=== PATIENT | female | born 1995 | race Two or more races ===

== ENCOUNTER 2021-09-15 16:02 | Emergency (ER) | payer OTHER, SELFPAY ==
--- NOTE | 2021-09-15 16:22 | ED_ITS ---
HPI - Skin/Abscess/Foreign Bdy General Chief complaint: Wound/Laceration Stated complaint: works at [employer] had a needle stick Time Seen by Provider: 09/15/21 16:11 Source: patient Mode of arrival: ambulatory Limitations: no limitations History of Present Illness HPI narrative: 26-year-old female presenting to the ED with complaints of a accidental needlestick injury that occurred prior to arrival while she was at work at [employer] after giving influenza vaccine. She reports that she gave the flu shot to the patient and when she went to dispose of the flu shot she accidentally stuck herself with the needle to the left hand index finger. She reports she wash the site right away. She denies any thoughts of foreign bodies. She is up-to-date on tetanus. Her leave manager does have the source of the patient. The source patient did agree to get the blood drawn. She reports she does not believe the patient has any infectious diseases although she will want the post exposure prophylaxis kit. She denies any other symptoms complaints or concerns at this time. 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) Tetanus up to date: yes Location: L hand (index finger ) Severity: mild Relieving factors: none Exacerbating factors: none Context: other (see above ) Associated symptoms: denies other symptoms Treatments prior to arrival: other (Cleansed the area ) Related Data Allergies Allergy/AdvReac Type Severity Reaction Status Date / Time No Known Allergies Allergy Verified 09/15/21 16:14 Review of Systems Review of Systems: Constitutional : + NeedleStick injury, No Weight loss, No Fever, No Chills, No Night Sweats, No Fatigue, No Malaise ENT/Mouth : No Hearing loss, No Ear Pain, No Nasal Congestion, No Sinus Pain, No Hoarseness, No sore throat, No Rhinorrhea, No Swallowing Difficulty Eyes: No Eye Pain, No Swelling, No Redness, No Foreign Body, No Discharge, No Vision Changes Cardiovascular : No Chest Pain, No SOB, No Dyspnea on Exertion, No Orthopnea, No Edema, No Palpitations Respiratory : No Cough, No Sputum, No Wheezing, No Smoke Exposure, No Dyspnea Gastrointestinal : No Nausea, No Vomiting, No Diarrhea, No Constipation, No abdominal Pain, No Hematochezia, No Melena Genitourinary : no irregular bleeding, No Dysuria, No Urinary Frequency, No Hematuria, No Urinary Incontinence, No Urgency, No Flank Pain, No Urinary Flow Changes, No Hesitancy Musculoskeletal : No joint pain, No Myalgias, No Joint Swelling Skin : No Skin Lesions, No rash Neuro : No Weakness, No Numbness, No Paresthesias, No Loss of Consciousness, No Dizziness, No Headache Psych : No Anxiety/Panic, No Depression, No SI/HI/AH/VH, No Social Issues, Heme/Lymph: No Bruising, No Bleeding,No Lymphadenopathy Endocrine : No Polyuria, No Polydipsia, No Temperature Intolerance Yes all other systems are reviewed and are negative [facility] Past Medical History Attestation statement: The following information was validated with the patient. Medical History (Updated 09/15/21 @ 16:36 by AUSTIN Hanna) Asthma Surgical History (Updated 09/15/21 @ 16:33 by Juliette Stroud LPN) Hx of hernia repair Social History Social History Advance Directives: No Advance Directives Information Provided: No Patient : No Physical Exam Vital Signs: Vital Signs: Last Vital Signs Temp 97.7 F 09/15/21 16:29 Pulse 90 09/15/21 16:29 Resp 16 09/15/21 16:29 BP 117/76 09/15/21 16:29 Pulse Ox 98 09/15/21 16:29 BMI result Body Mass Index 31.0 vital signs have been reviewed as normal and appeared to be correct. Blood pressure normal Heart rate normal. Respiration rate normal. Temperature normal. Oxygen saturation normal. Appearance: Alert. Oriented X3. No acute distress. Head: Normal external exam. Normocephalic. Atraumatic. Eyes: PERRLA. EOMI. Conjunctiva and sclera normal. Eyelids normal. ENT: Pharynx normal. Uvula midline. Moist mucous membranes. Neck: Normal inspection. Neck supple. FROM. CVS: Normal heart rate and rhythm. Respiratory: No respiratory distress. Painless inspiration. Skin: Skin warm and dry. Normal skin color. Normal skin turgor. No rashes/lesions/lacerations noted. Extremities: left hand index finger appears mildly erythemous no signs of FB's or drainage or infection at this time and there is no pain. Otherwise all other extremities exhibit normal range of motion nontender and atraumatic. Neuro: Oriented X 3. No motor deficit. No sensory deficit. Reflexes normal. Normal steady gait. No focal neuro deficits noted. Vascular: + radial pulses/+ 2 distal pedal pulses/+2 dorsalis pedis b/l. Normal cap refill. No cyanosis noted to upper extremity nails and lower extremity toes nails. Course Course Course Narrative: 16:15 - 26-year-old female presenting to the ED with complaints of a accidental needlestick injury that occurred prior to arrival while she was at work at [employer] after giving influenza vaccine. She reports that she gave the flu shot to the patient and when she went to dispose of the flu shot she accidentally stuck herself with the needle to the left hand index finger. She reports she wash the site right away. She denies any thoughts of foreign bodies. She is up-to-date on tetanus. Her leave manager does have the source of the patient. The source patient did agree to get the blood drawn. She reports she does not believe the patient has any infectious diseases although she will want the post exposure prophylaxis kit. She denies any other symptoms complaints or concerns at this time. Plan: Post exposure labs then send home with post exposure prophylaxis kit and instructions follow-up [facility]. Patient understands agrees with this plan. MDM - Skin/Abscess/Foreign Bdy Medical Records Attestation: I reviewed the patient's medical records. Lab Data Attestation: I reviewed the patient's lab results. Result diagrams: 09/15/21 17:00 09/15/21 17:00 Labs: Lab Results 09/15/21 09/15/21 Range/Units 17:00 17:00 WBC 9.2 (4.8-10.8) X10*3/uL RBC 4.21 (4.20-5.50) X10*6/uL Hgb 12.5 (12.0-16.0) g/dl Hct 36.6 L (37.0-47.0) % MCV 86.9 (80.0-98.0) fL MCH 29.7 (27.0-33.0) pg MCHC 34.2 (31.0-35.0) g/dl RDW 12.9 (11.0-16.0) % Plt Count 250 (160-400) X10*3/uL MPV 10.0 (9.4-12.3) fL Immature Gran % (Auto) 0.4 (0.0-0.4) % Neut % (Auto) 66.1 (45-73) % Lymph % (Auto) 24.3 (20-40) % [place] % (Auto) 5.9 (2-11) % Eos % (Auto) 3.1 (0-4) % Baso % (Auto) 0.2 (0-2) % Lymph # (Auto) 2.2 (1.2-4.9) X10*3/uL [place] # (Auto) 0.5 (0.1-1.2) X10*3/uL Eos # (Auto) 0.3 (0.0-0.4) X10*3/uL Baso # (Auto) 0.0 (0.0-0.2) X10*3/uL Abs Immat Gran (auto) 0.04 H (0.00-0.03) X10*3/uL Absolute Neuts (auto) 6.1 (2.0-8.3) x10*3/uL Absolute Nucleated RBC 0.000 (0.0-0.012) X10*3/uL Nucleated RBC % (auto) 0.0 (0.0-0.2) /100WBC Sodium 138 (135-145) mmol/L Potassium 4.0 (3.3-5.1) mmol/L Chloride 107 (96-108) mmol/L Carbon Dioxide 23 (22-29) mmol/L Anion Gap 12 (12-20) BUN 16 (9-16) mg/dL Creatinine 0.72 (0.5-1.4) mg/dL Estim Creat Clear Calc 122.7 Estimated GFR > 60 Random Glucose 103 (60-115) mg/dL Calcium 8.5 (8.4-10.2) mg/dL Magnesium 1.9 (1.6-2.6) mg/dL Total Bilirubin 0.5 (0.0-1.0) mg/dL AST 16 (5-31) U/L ALT 13 (0-31) U/L Alkaline Phosphatase 75 (39-117) U/L Total Protein 6.6 (6.5-8.0) g/dL Albumin 3.5 (3.5-5.0) g/dL Beta HCG, Quant < 2 mIU/mL Discharge Plan Discharge Clinical Impression: Accidental hypodermic needlestick injury, Work related injury Patient Disposition: Home, Self-Care Instructions: Needle Stick Injuries (ED), Return to Work Instructions (ED) Additional Instructions: You have pending labs results if any are abnormal or positive you will be cont acts. You need to follow up with [facility] within 72 hours And if you decide to take the post exposure prophylaxis kit you will need to take this within 72 hours or sooner. Return if any new or worsening symptoms. Follow up with your primary care provider as well. Referrals: [facility] [Provider Group] - 1 day Concepcion Mendoza MD [Primary Care Provider] - 2 days Stand Alone Forms: Work/School Release Print Language: Angolan
[2021-09-15 16:29] VITALS: BP 117/76; PULSE 90; RESP 16; TEMP 36.5; O2SAT 98; BMI 31.0
[2021-09-15 17:05] LABS: MANUAL DIFF FLAG NO
[2021-09-15] MEDS: Post Exposure Medication Kit 1 KIT PO (17:07)
[2021-09-15 17:12] LABS: Basophils Percent Auto 0.2 % (0-2); Eosinophils Absolute Auto 0.3 X10*3/uL (0.0-0.4); Eosinophils Percent Auto 3.1 % (0-4); Hematocrit 36.6 % (37.0-47.0); Hemoglobin 12.5 g/dl (12.0-16.0); Imm Gran Abs Auto 0.04 X10*3/uL (0.00-0.03); Imm Gran Pct Auto 0.4 % (0.0-0.4); Lymphocytes Absolute Auto 2.2 X10*3/uL (1.2-4.9); Lymphocytes Percent Auto 24.3 % (20-40); Mean Corpuscular HGB Conc 34.2 g/dl (31.0-35.0); Mean Corpuscular Hemoglobin 29.7 pg (27.0-33.0); Mean Corpuscular Volume 86.9 fL (80.0-98.0); Monocytes Absolute Auto 0.5 X10*3/uL (0.1-1.2); Monocytes Percent Auto 5.9 % (2-11); Neutrophils Absolute Auto 6.1 x10*3/uL (2.0-8.3); Neutrophils Percent Auto 66.1 % (45-73); Platelet Count 250 X10*3/uL (160-400); Red Blood Count 4.21 X10*6/uL (4.20-5.50); Red Cell Distribution Width 12.9 % (11.0-16.0); White Blood Count 9.2 X10*3/uL (4.8-10.8)
[2021-09-15 17:30] LABS: Alanine Aminotransferase 13 U/L (0-31); Albumin Level 3.5 g/dL (3.5-5.0); Alkaline Phosphatase 75 U/L (39-117); Anion Gap 12 (12-20); Aspartate Amino Transferase 16 U/L (5-31); Bilirubin Total 0.5 mg/dL (0.0-1.0); Blood Urea Nitrogen 16 mg/dL (9-16); Calcium 8.5 mg/dL (8.4-10.2); Carbon Dioxide 23 mmol/L (22-29); Chloride 107 mmol/L (96-108); Creatinine Clr Calc Pharmacy 122.7; Estimated Glomerular Filt Rate > 60; Glucose Random 103 mg/dL (60-115); Magnesium 1.9 mg/dL (1.6-2.6); Sodium 138 mmol/L (135-145); Total Protein 6.6 g/dL (6.5-8.0)
[2021-09-15 17:38] LABS: HCG Quantitative < 2 mIU/mL
[2021-09-16 08:24] LABS: HIV AB/AG Nonreactive (Nonreactive); HIV Num 1 0.07 S/CO (0.00-0.99); Hepatitis B Surface Antigen Negative (Negative)
[2021-09-16 10:07] LABS: HBS Num1 100.55 mIU/mL (0-7.99); Hepatitis B Core Antibody Nonreactive (Nonreactive); ~HepC Num1 0.33 S/CO (0.00-0.79); ~Hepatitis B Surface Antibody REACTIVE (Nonreactive); ~Hepatitis C Antibody Nonreactive (Nonreactive)
== END 2021-09-15 17:49 | disposition home or self-care (01) ==
PROVIDERS: Physician Assistant Medical; Emergency Provider Emergency Medicine Emergency Medical Services; PCP Internal Medicine
DX: Z04.2 Encounter for examination and observation following work accident (principal); Z77.21 Contact with and (suspected) exposure to potentially hazardous body fluids
CPT/HCPCS: 36415; 80053; 83735; 84702; 85025; 86704; 86706; 86803; 87340; 87389; 99283

== ENCOUNTER → 2021-09-23 08:47 | Outpatient (BNVA) | payer OTHER, SELFPAY | PROVIDERS: PCP Internal Medicine; Visit Provider Physician Assistant Medical | DX: Z77.21 Contact with and (suspected) exposure to potentially hazardous body fluids (principal) | CPT/HCPCS: 99203 ==

== ENCOUNTER 2023-03-07 08:01 | Outpatient (AMB) | payer BC, SELFPAY ==
--- NOTE | 2023-03-07 08:23 | MHC.OFFWIV ---
Intake Vital Signs 03/07/23 08:24 Height 5 ft 4 in Weight 86.183 kg BMI 32.6 BP 110/64 Blood Pressure Location Rt brachial Position Sitting Pulse 94 Pulse Source Pulse Oximeter Temp 98.0 F Temp Source Temporal Artery Scan Pulse Oximetry (%) 99 Oxygen Delivery Method Room Air Intake Visit Reasons: EP RT ?Ear Infection Intake Note: pt is here for c/o ear infection Allergies penicillin V Allergy (Mild, Verified 03/07/23 08:24) Rash Do you need a note to return to daycare/school/sports/work: No HPI HPI Comments History of Present Illness Details 0833 20-year-old female history of asthma presents complaints of right-sided ear pain for the past few days worsening. Patient reports recurrent ear infections, worse when she showers frequently and washes her hair.. Patient denies fevers, chills, otorrhea, tinnitus, dizziness, headache, nausea, vomiting, abdominal pain. Physical exam significant for erythematous, bulging tympanic membrane on the right, within edematous and erythematous ear canal. There is pain with manipulation of right external ear. No mastoid tenderness bilaterally. Normal left here in ear canal. Concerns for otitis media with otitis externa. Unlikely mastoiditis, malignant otitis. No signs of abscess. Plan doxycycline since patient has an amoxicillin allergy, Ciprodex drops. Educated patient on diagnosis and treatment plan, answered all question, patient verbalizes understanding. At this time patient will be discharged home, advised to return with new or worsening symptoms. Educated on worrisome signs and symptoms and when to return. At this time I feel comfortable discharge home. [facility] Medical History Asthma Surgical History Hx of hernia repair Review of Systems Const Details: Constitutional : No Weight loss, No Fever, No Chills, No Fatigue, No Malaise ENT/Mouth : No sore throat, No Rhinorrhea, + ear pain Eyes: No Eye Pain, No Swelling, No Redness Cardiovascular : No Chest Pain, No SOB, No Dyspnea on Exertion, No Orthopnea, No Edema, No Palpitations Respiratory : No Cough, No Sputum, No Wheezing Gastrointestinal : No Nausea, No Vomiting, No Diarrhea, No Constipation, No abdominal Pain, No Hematochezia, No Melena Genitourinary : No Dysuria, No Urinary Frequency, No Hematuria, Musculoskeletal : No joint pain, No Myalgias, No Joint Swelling Skin : No Skin Lesions, No rash Neuro : No Weakness, No Numbness, No Dizziness, No Headache Psych : No Anxiety/Panic, No Depression All other systems reviewed and are negative All systems reviewed & are unremarkable except as noted in HPI and below Physical Exam Vital Signs: Last Vital Signs Temp 98.0 F 03/07/23 08:24 Pulse 94 03/07/23 08:24 BP 110/64 03/07/23 08:24 Pulse Ox 99 03/07/23 08:24 Oxygen Delivery Method Room Air 03/07/23 08:24 BMI result Body Mass Index 32.6 vss Appearance: Alert.? Oriented X3.? No acute distress.? Head: Normocephalic, atraumatic, no step-offs or deformities Eyes: Pupils equal, round and reactive to light.? ENT: Pharynx normal.? +erythematous, bulging tympanic membrane on the right, within edematous and erythematous ear canal. There is pain with manipulation of right external ear. No mastoid tenderness bilaterally. Normal left here in ear canal. Neck: Normal inspection.? Neck supple.? CVS: Normal heart rate and rhythm.? Pulses normal.? Respiratory: No respiratory distress.? Breath sounds normal.? Abdomen: Soft and nontender.? Skin: Skin warm and dry.? Normal skin color.? Normal skin turgor.? Extremities: No lower extremity edema.? No calf ttp. 5/5 strength to bilateral upper and lower extremities Neuro: Oriented X 3.? No motor deficit.? No sensory deficit. CN 2-12 intact Assessment & Plan Assessment & Plan (1) Otitis media: Code(s): H66.90 - Otitis media, unspecified, unspecified ear (2) Otitis externa: Code(s): H60.90 - Unspecified otitis externa, unspecified ear Plan Take your medications as prescribed. If you were prescribed antibiotics today, it is important that you take your medication to their entirety, do not skip any doses, do not finish them early. Follow-up with your primary care provider this week. Return to the emergency department with new or worsening symptoms. Such as fevers, chills, chest pain, shortness of breath, nausea, vomiting, dizziness, headache, vision changes, lethargy In case of emergency call 911 Medications: New doxycycline hyclate 100 mg PO BID 14 caps 0RF 7 days ciprofloxacin-dexamethasone 0.3-0.1 % (Ciprodex) 4 drps otic (ears) BID 7.5 mL 0RF 7 days Coding Level of Care Code Est Pt Level 3 (46577) Diagnoses Otitis media H66.90 Otitis externa H60.90
[2023-03-07 08:24] VITALS: BP 110/64; PULSE 94; TEMP 36.7; O2SAT 99; BMI 32.6
== END 2023-03-07 08:41 | disposition home or self-care (01) ==
PROVIDERS: PCP Internal Medicine; Visit Provider Physician Assistant
DX: H66.91 Otitis media, unspecified, right ear (principal); H60.91 Unspecified otitis externa, right ear
CPT/HCPCS: 99213

== ENCOUNTER 2023-06-10 07:14 | Outpatient (REF) | payer OTHER, SELFPAY ==
[2023-06-10 08:28] LABS: Thyroid Stimulating Hormone 0.94 uIU/mL (0.32-4.0)
[2023-06-11 06:44] LABS: DHEA Sulfate 95 mcg/dL (14-349); Follicle Stimulating Hormone 6.6 mIU/mL; Prolactin 11.2 ng/mL
[2023-06-14 23:29] LABS: Testosterone, Free 1.3 pg/mL (0.1-6.4); Testosterone, Total 13 ng/dL (2-45)
[2023-06-17 22:19] LABS: Estradiol Free 0.67 pg/mL; Estradiol, Ultrasensitive 41 pg/mL
== END 2023-06-10 07:15 | disposition home or self-care (01) ==
LOC: HO.LAB 07:14
PROVIDERS: PCP Internal Medicine; Visit Provider Obstetrics & Gynecology
DX: N97.9 Female infertility, unspecified (principal)
CPT/HCPCS: 36415; 82627; 82670; 82681; 83001; 83002; 84146; 84402; 84403; 84443

== ENCOUNTER 2023-06-17 15:23 | Outpatient (REF) | payer OTHER, SELFPAY ==
--- NOTE | ~2023-06-17 | US_ITS ---
EXAMINATION: US PELVIS CLINICAL INFORMATION: Infertility, oligomenorrhea, question polycystic ovarian syndrome. Last menstrual period 1 week ago. COMPARISON: None available. TECHNIQUE: Ultrasound of the pelvis is performed using both transabdominal and transvaginal transducers along with Doppler. Transvaginal imaging is performed due to inadequate visualization transabdominally. FINDINGS: The uterus is heterogeneous and measures 7.9 x 3.7 x 5.1 cm with volume 77.86 mL. Left anterior low 1.9 x 1.3 x 2.0 cm hypoechoic mass is characteristic of a fibroid. Endometrial thickness is 0.7 cm. There is no significant free fluid. Right ovary measures 3.4 x 1.5 x 1.8 cm, volume 4.6 mL. Left ovary measures 2.9 x 1.7 x 1.4 cm, volume 3.5 mL. Limited visualization of the bilateral ovaries due to bowel gas. Left ovarian 1.3 cm cyst is likely physiologic. US/US pelvic and transvaginal IMPRESSION: 1. Fibroid uterus. 2. Endometrial thickness is 0.7 cm. 3. No significant free fluid. 4. Right ovarian volume 4.6 mL and left ovarian volume 3.5 mL. Left ovarian 1.3 cm cyst is likely physiologic. Limited visualization of the bilateral ovaries due to bowel gas.
== END 2023-06-17 15:24 | disposition home or self-care (01) ==
LOC: HO.HMGCX 15:23
PROVIDERS: PCP Internal Medicine; Visit Provider Internal Medicine
DX: N97.9 Female infertility, unspecified (principal)
CPT/HCPCS: 76830; 76856

== ENCOUNTER 2023-08-12 20:00 | Outpatient (REF) | payer OTHER, SELFPAY ==
[2023-08-13 13:31] LABS: H Pylori Breath Test Negative (Negative)
== END 2023-08-12 20:01 | disposition home or self-care (01) ==
LOC: HO.LNP 20:00
PROVIDERS: Visit Provider Internal Medicine Gastroenterology
DX: K29.70 Gastritis, unspecified, without bleeding (principal)
CPT/HCPCS: 83013

== ENCOUNTER 2023-09-15 10:14 | Day surgery (SDC) | payer OTHER, SELFPAY ==
--- NOTE | 2023-09-14 08:52 | HO.ANESPROP2 ---
Documented by User: Rosie Arias NP 09/14/23 08:53 HPI - Anesthesia Eval Consult details Narrative: 28yo F for Upper Endoscopy PMF Active Problems Active Problems: All Active Problems (Updated 10/16/21 @ 11:04 by Sha Nesbitt MD) Upper respiratory tract infection (Acute) Past Medical History Medical History Migraine Depression Asthma Surgical History Surgical History Hx of hernia repair Social History Social History Patient Tobacco Use Status: Never used Tobacco Use of substances other than those prescribed or required for medical reasons: No Are you DNR?: No Advance Directives: No Advance Directives Information Provided: Yes Meds Allergies Allergy/AdvReac Type Severity Reaction Status Date / Time penicillin V Allergy Mild Rash Verified 09/15/23 10:26 Home Medications Medication Instructions Recorded Confirmed Last Taken Type bupropion HCl 150 mg tablet,12 hr 150 mg PO DAILY 10/16/21 09/15/23 Unknown History sustained-release (Wellbutrin SR) buspirone 5 mg tablet 5 mg PO TID 09/15/23 09/15/23 Unknown History sumatriptan succinate 25 mg tablet PO 09/15/23 Unknown History topiramate 25 mg tablet 25 mg PO DAILY 09/15/23 09/15/23 Unknown History Assessment and Plan Assessment Anesthesia Assessment: Chart Reviewed Documented by User: Latanya Cadena MD 09/15/23 10:41 PMFSH Past Medical History Medical History Migraine Depression Asthma Family History Family history of problems with anesthesia: No Surgical History Surgical History Hx of hernia repair History of Problems with Anesthesia: No Social History Social History Patient Tobacco Use Status: Never used Tobacco Use of substances other than those prescribed or required for medical reasons: No Are you DNR?: No Advance Directives: No Advance Directives Information Provided: Yes Meds Allergies Allergy/AdvReac Type Severity Reaction Status Date / Time penicillin V Allergy Mild Rash Verified 09/15/23 10:26 Home Medications Medication Instructions Recorded Confirmed Last Taken Type bupropion HCl 150 mg tablet,12 hr 150 mg PO DAILY 10/16/21 09/15/23 Unknown History sustained-release (Wellbutrin SR) buspirone 5 mg tablet 5 mg PO TID 09/15/23 09/15/23 Unknown History sumatriptan succinate 25 mg tablet PO 09/15/23 Unknown History topiramate 25 mg tablet 25 mg PO DAILY 09/15/23 09/15/23 Unknown History Exam Airway Mallampati Class: II TM Dist: >3cm Neck ROM: Full Heart: rrr Lungs: cta Assessment and Plan Assessment Anesthesia Assessment: Anesthesia Plan Discussed Final Anesthetic Review Family History of Problems with Anesthesia: No History of Problems with Anesthesia: No NPO: Yes ASA Class: II Final Preanesthetic Review: No Changes in Pt Med Stat, Meds/Allgs Chart Reviewed, Consent Obtained/Reviewed and Anes Risks/Benef Reviewed Patient Risk: Low Procedure Risk: Low Anesthetic Plan Anesthetic Plan: MAC: Disposition: Standard PACU
[2023-09-15 10:28] VITALS: BP 126/87; PULSE 92; RESP 15; TEMP 37; O2SAT 98; BMI 33.5
[2023-09-15 10:30] LABS: UPreg QC Valid YES; Urine Pregnancy NEGATIVE (NEGATIVE)
--- NOTE | 2023-09-15 10:40 | P.HPSUR_ITS ---
Pre-Procedural Eval Section A - 24 Hr Update-Section A only Date of Service: 09/15/23 Section B - Complete if H&P > 30 days Chief Complaint: Gastritis, unspecified, without bleeding Relevant Family History (Specify if Yes): No Relevant Social History: None Present Medications: see Short Stay Collaborative assessment Medical History: Significant History (Migraine Depression Asthma) History of Previous Operations: Relevant previous surgery/procedure and date(s) (Hx of hernia repair) Allergies: Allergies Allergy/AdvReac Type Severity Reaction Status Date / Time penicillin V Allergy Mild Rash Verified 09/15/23 10:26 Review of Systems Sugical H&P ROS: Negative: Constitution, Cardiovascular, Respiratory, Neurological, Psychiatric, Hem-Onc, Allergic/Immunologic, Gastrointestinal, Genitourinary, Musculoskeletal, Integumentary, Endocrine and Eyes/Ears/Nose /Throat Exam Surgical H&P Exam: Normal: HEENT, Normal: Heart, Normal: Lungs, Normal: Extremities, Normal: Abdomen, Normal: Skin and Normal: Neurological Plan Diagnosis/Plan: Unchanged I have reviewed the history and physical and performed a pertinent physical examination on my patient. No changes have occurred unless specified. EGD for assessment of epigastric pain Time Spent With Patient Time: Total time managing care of this patient today ____ minutes.
[2023-09-15] MEDS: Lactated Ringers 1,000 ML 100 ML IVCONT (10:47)
--- NOTE | 2023-09-15 12:07 | W.PM.OPN ---
Operative Note Operative Note Date of Service: 09/15/23 Narrative: Procedure Description: EGD Indication: epigastric pain Anesthesia: MAC FLEXIBLE TRANSORAL UPPER GASTROINTESTINAL ENDOSCOPY UPPER ENDOSCOPY Consent: Indications for the procedure and potential complications of bleeding, perforation, reaction to medications and missed diagnosis were discussed with the patient and informed consent was obtained. Instrument: Olympus GIF H 190 J mid size upper endoscope Monitoring: Vital signs and clinical assessment, continuous EKG monitoring, Pulse oximetry, Carbon Dioxide monitoring and blood pressure monitoring were done throughout the procedure. Procedure: The patient was placed in the left lateral decubitis position and pre-procedure medications were administered and a bite block was placed. The endoscope was inserted into the mouth and advanced under direct vision to the third part of duodenum. A careful inspection was made as the upper endoscope was withdrawn including a retroflexed examination of the proximal stomach; Findings and interventions are described below. Findings: Larynx:normal Esophagus: GE junction at 35 cm, diaphragm hiatus at 35 cm, bx taken from GEj and distal esophagus, mild esophagitis at GEJ Stomach: Mild patchy erythema . Biopsies were obtained. Grade 2 flap valve on retroflexed examination of the cardia. Duodenum: Mild bulbar erythema, bx taken Intervention: Biopsies as noted above, Impression/Findings: gastritis duodenitis esophagitis PLAN: Await bx, if pos for h pylori treat if ongoing sx then US abdomen GERD precautions
[2023-09-15 12:13] VITALS: BP 107/69; PULSE 82; RESP 18; TEMP 36.2; O2SAT 100
[2023-09-15 12:28] VITALS: BP 106/77; PULSE 83; RESP 18; TEMP 36.7; O2SAT 98
== END 2023-09-15 12:45 | disposition home or self-care (01) ==
PROVIDERS: Nurse Practitioner; PCP Internal Medicine; Visit Provider Internal Medicine Gastroenterology
PROC: 0DJ08ZZ Inspection of Upper Intestinal Tract, Via Natural or Artificial Opening Endoscopic (ICD-10-PCS; CPT 43235; principal; 2023-09-15 12:10)
DX: K29.70 Gastritis, unspecified, without bleeding (principal); K29.80 Duodenitis without bleeding; K20.90 Esophagitis, unspecified without bleeding; K21.9 Gastro-esophageal reflux disease without esophagitis; J02.9 Acute pharyngitis, unspecified; J45.909 Unspecified asthma, uncomplicated
CPT/HCPCS: 43239; 81025; 88305; 88312; 88313; 88342; J2704

== ENCOUNTER → 2023-09-15 10:14 | Outpatient (BNV) | payer OTHER, SELFPAY | PROVIDERS: PCP Internal Medicine; Visit Provider Internal Medicine Gastroenterology | DX: K29.90 Gastroduodenitis, unspecified, without bleeding (principal); K20.90 Esophagitis, unspecified without bleeding | CPT/HCPCS: 43239 ==

== ENCOUNTER 2023-09-22 07:35 | Outpatient (REF) | payer OTHER, SELFPAY ==
[2023-09-22 07:50] LABS: MANUAL DIFF FLAG NO
[2023-09-22 08:09] LABS: Basophils Percent Auto 0.3 % (0-2); Eosinophils Absolute Auto 0.2 X10*3/uL (0.0-0.4); Eosinophils Percent Auto 1.8 % (0-4); Hematocrit 39.1 % (37.0-47.0); Hemoglobin 12.9 g/dl (12.0-16.0); Imm Gran Abs Auto 0.06 X10*3/uL (0.00-0.03); Imm Gran Pct Auto 0.6 % (0.0-0.4); Lymphocytes Absolute Auto 2.5 X10*3/uL (1.2-4.9); Mean Corpuscular Hemoglobin 29.1 pg (27.0-33.0); Mean Corpuscular Volume 88.1 fL (80.0-98.0); Mean Platelet Volume 10.3 fL (9.4-12.3); Monocytes Absolute Auto 0.8 X10*3/uL (0.1-1.2); Monocytes Percent Auto 8.1 % (2-11); Neutrophils Absolute Auto 6.1 x10*3/uL (2.0-8.3); Neutrophils Percent Auto 63.2 % (45-73); Platelet Count 276 X10*3/uL (160-400); Red Blood Count 4.44 X10*6/uL (4.20-5.50); White Blood Count 9.6 X10*3/uL (4.8-10.8)
[2023-09-22 08:42] LABS: Alanine Aminotransferase 17 U/L (0-31); Albumin Level 4.1 g/dL (3.5-5.0); Alkaline Phosphatase 88 U/L (39-117); Anion Gap 10 (12-20); Aspartate Amino Transferase 20 U/L (5-31); Bilirubin Total 0.4 mg/dL (0.0-1.0); Blood Urea Nitrogen 14 mg/dL (9-16); Calcium 9.2 mg/dL (8.4-10.2); Carbon Dioxide 24 mmol/L (22-29); Chloride 110 mmol/L (96-108); Cholesterol 184 mg/dL (<200); Estimated Glomerular Filt Rate > 60; Glucose Random 92 mg/dL (60-115); HDL Cholesterol 54 mg/dL (>40); LDL Cholesterol Calculated 115 mg/dL (<100); Lipase 14 U/L (8-78); Sodium 140 mmol/L (135-145); Total Protein 7.4 g/dL (6.5-8.0); Triglycerides 77 mg/dL (<150)
[2023-09-22 08:50] LABS: Thyroid Stimulating Hormone 1.32 uIU/mL (0.32-4.0)
[2023-09-22 08:51] LABS: Erythrocyte Sedimentation Rate 17 MM/HR (0-20)
== END 2023-09-22 07:36 | disposition home or self-care (01) ==
LOC: HO.LAB 07:35
PROVIDERS: PCP Internal Medicine; Visit Provider Physician Assistant
DX: Z13.6 Encounter for screening for cardiovascular disorders (principal); R10.13 Epigastric pain
CPT/HCPCS: 36415; 80053; 80061; 83690; 84443; 85025; 85652

== ENCOUNTER 2023-10-04 08:04 | Outpatient (REF) | payer OTHER, SELFPAY ==
--- NOTE | ~2023-10-04 | US_ITS ---
EXAMINATION: US ABDOMEN COMPLETE CLINICAL INFORMATION: Epigastric pain. COMPARISON: None available. TECHNIQUE: Real-time imaging of the abdominal viscera. Technically difficult study secondary to bowel gas. FINDINGS: PANCREAS: Poorly visualized. ABDOMINAL AORTA: The proximal, mid, and distal segments are normal in caliber. INFERIOR VENA CAVA: Visualized portions are normal. LIVER: Hepatomegaly, 17.9 cm. Mildly increased hepatic parenchymal heterogeneity and echogenicity could be associated with hepatocellular disease/hepatic steatosis and substantially limits visualization. Correlation with liver function tests and clinical exam recommended to determine further management. GALLBLADDER: No gallstones. No gallbladder wall thickening. COMMON BILE DUCT: Normal in caliber measuring 0.4 cm in diameter. RIGHT KIDNEY: No hydronephrosis. No renal calculi. Limited visualization. The kidney measures 11.0 cm in maximum dimension. LEFT KIDNEY: No hydronephrosis. No renal calculi. Limited visualization. The kidney measures 10.3 cm in maximum dimension. SPLEEN: Normal. The spleen measures 10.5 cm in maximum dimension. FREE FLUID: None. US/US abdomen complete IMPRESSION: Hepatomegaly, 17.9 cm. Mildly increased hepatic parenchymal heterogeneity and echogenicity could be associated with hepatocellular disease/hepatic steatosis and substantially limits visualization. Correlation with liver function tests and clinical exam recommended to determine further management.
== END 2023-10-04 08:05 | disposition home or self-care (01) ==
LOC: HO.US 08:04
PROVIDERS: PCP Internal Medicine; Visit Provider Internal Medicine Gastroenterology
DX: R10.13 Epigastric pain (principal)
CPT/HCPCS: 76700

== ENCOUNTER 2023-10-21 14:22 | Outpatient (AMB) | payer OTHER, SELFPAY ==
--- NOTE | 2023-10-21 15:01 | AM.OFFWIN_ITS ---
Intake Vital Signs 10/21/23 15:02 Height 5 ft 4 in BP 110/76 Blood Pressure Location Lt brachial Position Sitting Pulse 106 H Pulse Source Pulse Oximeter Temp 98 F Intake Visit Reasons: EP back pain (lobby) Intake Note: pt is here for back pain, denies injury Patient Tobacco Use Status: Never used Tobacco Allergies penicillin V Allergy (Mild, Verified 09/15/23 10:26) Rash Medication List - Last Reconciled 10/21/23 by AUSTIN Cuevas bupropion HCl SR (Wellbutrin SR) 100 mg PO BEDTIME buspirone 5 mg PO TID esomeprazole magnesium 20 mg PO DAILY lidocaine 4% (Aspercreme (lidocaine)) 1 patch topical BID PRN nortriptyline 10 mg PO BEDTIME sumatriptan succinate PO Do you need a note to return to daycare/school/sports/work: Yes HPI HPI Comments History of Present Illness Details 28-year-old female presents today compla ining of spine pain for the last week there were thoracic and lumbar spine. The patient denies any particular injury or trauma to the area. 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 She denies any change in her fitness regime or change in shoes. [facility] Medical History (Updated 10/21/23 @ 15:20 by AUSTIN Cuevas) Migraine Depression Asthma Surgical History (Updated 09/15/23 @ 11:21 by Mercedes Medina RN) History of esophagogastroduodenoscopy (EGD) H/O colonoscopy Hx of hernia repair Social History Patient Tobacco Use Status: Never used Tobacco Physical Exam Vital Signs: Last Vital Signs Temp 98 F 10/21/23 15:02 Pulse 106 H 10/21/23 15:02 BP 110/76 10/21/23 15:02 General: Yes no CVA tenderness Back/Spine/Pelvis Back: no CVA tenderness Cervical Spine: normal cervical lordosis Thoracic/Lumbar Spine: thoracic and lumbar spine normal to inspection, thoraco- lumbar ROM normal, straight leg raise negative bilaterally, thoracic spinal tenderness and lumbar spinal tenderness Results Reviewed Results Reviewed: The x-ray of her thoracic and lumbar spine was normal. Discussed the possibility of it being some kind of a rheumatologic problem. So lab work was drawn and she will follow that up with the PCP Assessment & Plan Assessment & Plan (1) Spine pain: Code(s): M54.9 - Dorsalgia, unspecified Plan: Lab work was drawn and will follow up with her PCP Plan See plan Orders: Orders XR thoracic spine 2V Today M54.9 - Dorsalgia, unspecified Erythrocyte Sedimentation Rate Today M54.9 - Dorsalgia, unspecified XR lumbar spine 2-3V Today M54.9 - Dorsalgia, unspecified Comprehensive Met. Panel Today M54.9 - Dorsalgia, unspecified HLA B27 Today M54.9 - Dorsalgia, unspecified Complete Blood Count Auto Diff Today M54.9 - Dorsalgia, unspecified Aspartate Amino Transferase Today M54.9 - Dorsalgia, unspecified Creatinine Today M54.9 - Dorsalgia, unspecified Alanine Aminotransferase Today M54.9 - Dorsalgia, unspecified C Reactive Protein Today M54.9 - Dorsalgia, unspecified Coding Level of Care Code Est Pt Level 3 (64375) Diagnoses Spine pain M54.9
[2023-10-21 15:02] VITALS: BP 110/76; PULSE 106; TEMP 36.6
== END 2023-10-21 16:09 | disposition home or self-care (01) ==
PROVIDERS: PCP Internal Medicine; Visit Provider Physician Assistant Medical
DX: M54.9 Dorsalgia, unspecified (principal)
CPT/HCPCS: 99213

== ENCOUNTER 2023-10-21 15:19 | Outpatient (REF) | payer OTHER, SELFPAY ==
--- NOTE | ~2023-10-21 | XR_ITS ---
X-RAY THORACIC AND LUMBAR SPINE CLINICAL HISTORY: Pain. COMPARISON: No relevant prior studies are available for comparison. TECHNIQUE: 2 views of the thoracic spine and 3 views of the lumbosacral spine. FINDINGS: Thoracic spine: No evidence of acute compression deformity or subluxation. Normal appearance of the posterior elements. No significant paraspinal soft tissue abnormality. Lumbar spine: No evidence of acute compression deformity or subluxation. Normal appearance of the posterior elements. No significant paraspinal soft tissue abnormality. XR/XR lumbar spine 2-3V IMPRESSION: No significant radiographic abnormality of the thoracic or lumbar spine.
--- NOTE | ~2023-10-21 | XR_ITS ---
X-RAY THORACIC AND LUMBAR SPINE CLINICAL HISTORY: Pain. COMPARISON: No relevant prior studies are available for comparison. TECHNIQUE: 2 views of the thoracic spine and 3 views of the lumbosacral spine. FINDINGS: Thoracic spine: No evidence of acute compression deformity or subluxation. Normal appearance of the posterior elements. No significant paraspinal soft tissue abnormality. Lumbar spine: No evidence of acute compression deformity or subluxation. Normal appearance of the posterior elements. No significant paraspinal soft tissue abnormality. XR/XR thoracic spine 2V IMPRESSION: No significant radiographic abnormality of the thoracic or lumbar spine.
== END 2023-10-21 15:20 | disposition home or self-care (01) ==
LOC: HO.HMGCX 15:19
PROVIDERS: PCP Internal Medicine; Visit Provider Physician Assistant Medical
DX: M54.9 Dorsalgia, unspecified (principal)
CPT/HCPCS: 72070; 72100

== ENCOUNTER 2023-10-25 07:30 | Outpatient (REF) | payer OTHER, SELFPAY ==
[2023-10-25 07:41] LABS: MANUAL DIFF FLAG NO
[2023-10-25 08:29] LABS: Basophils Percent Auto 0.3 % (0-2); Eosinophils Absolute Auto 0.2 X10*3/uL (0.0-0.4); Eosinophils Percent Auto 2.9 % (0-4); Hematocrit 40.1 % (37.0-47.0); Hemoglobin 13.2 g/dl (12.0-16.0); Imm Gran Abs Auto 0.03 X10*3/uL (0.00-0.03); Imm Gran Pct Auto 0.4 % (0.0-0.4); Lymphocytes Absolute Auto 2.3 X10*3/uL (1.2-4.9); Lymphocytes Percent Auto 33.3 % (20-40); Mean Corpuscular HGB Conc 32.9 g/dl (31.0-35.0); Mean Corpuscular Hemoglobin 29.5 pg (27.0-33.0); Mean Corpuscular Volume 89.5 fL (80.0-98.0); Mean Platelet Volume 10.5 fL (9.4-12.3); Monocytes Absolute Auto 0.6 X10*3/uL (0.1-1.2); Monocytes Percent Auto 8.6 % (2-11); Neutrophils Absolute Auto 3.8 x10*3/uL (2.0-8.3); Neutrophils Percent Auto 54.5 % (45-73); Platelet Count 244 X10*3/uL (160-400); Red Blood Count 4.48 X10*6/uL (4.20-5.50); Red Cell Distribution Width 12.9 % (11.0-16.0); White Blood Count 6.9 X10*3/uL (4.8-10.8)
[2023-10-25 09:05] LABS: Alanine Aminotransferase 14 U/L (0-31); Albumin Level 4.2 g/dL (3.5-5.0); Alkaline Phosphatase 97 U/L (39-117); Anion Gap 11 (12-20); Aspartate Amino Transferase 16 U/L (5-31); Bilirubin Total 0.3 mg/dL (0.0-1.0); Blood Urea Nitrogen 12 mg/dL (9-16); C Reactive Protein 0.86 mg/dL (< or = 0.50); Calcium 9.2 mg/dL (8.4-10.2); Carbon Dioxide 26 mmol/L (22-29); Chloride 109 mmol/L (96-108); Estimated Glomerular Filt Rate > 60; Glucose Random 97 mg/dL (60-115); Sodium 142 mmol/L (135-145); Total Protein 7.5 g/dL (6.5-8.0)
[2023-10-25 09:42] LABS: Erythrocyte Sedimentation Rate 16 MM/HR (0-20)
[2023-10-29 01:43] LABS: HLA B27 Negative (Negative)
== END 2023-10-25 07:31 | disposition home or self-care (01) ==
LOC: HO.LAB 07:30
PROVIDERS: PCP Internal Medicine; Visit Provider Physician Assistant Medical
DX: M54.9 Dorsalgia, unspecified (principal)
CPT/HCPCS: 36415; 80053; 85025; 85652; 86140; 86812

== ENCOUNTER 2023-10-28 09:49 | Outpatient (REF) | payer OTHER, SELFPAY ==
--- NOTE | ~2023-10-28 | MR_ITS ---
EXAMINATION: MR ABDOMEN WITHOUT AND WITH CONTRAST CLINICAL INFORMATION: Epigastric pain. COMPARISON: Abdominal ultrasound 10/04/2023 TECHNIQUE: MR abdomen was performed without and with use of 9 mL intravenous Gadavist gadolinium contrast. Postcontrast images are performed in multiphase dynamic sequences. Imaging was performed in 3 planes. FINDINGS: LUNG BASES: The visualized lung bases are unremarkable. LIVER, GALLBLADDER, AND BILIARY TREE: Mild hepatic steatosis. The liver is enlarged and measures 19.0 cm in sagittal dimension. No focal hepatic lesion or biliary ductal dilatation is present. The gallbladder contains sludge. PANCREAS: Normal contour. Homogeneous enhancement. No ductal dilatation. No peripancreatic stranding or peripancreatic fluid collection. SPLEEN: Not enlarged. ADRENAL GLANDS: No adrenal mass. KIDNEYS AND URETERS: The kidneys are normal in size, shape, and enhance symmetrically. No hydronephrosis. No perinephric stranding. GASTROINTESTINAL TRACT: No bowel obstruction. No ascites or fluid collection. ABDOMINAL WALL: No significant hernia is appreciated. LYMPH NODES: No lymphadenopathy. VASCULAR: Unremarkable. MR/MR abdomen wo/w con IMPRESSION: Mild hepatic steatosis and hepatomegaly. Sludge in the gallbladder.
[2023-10-28] MEDS: gadobutroL 10 ML VIAL IVPUSH (10:33)
== END 2023-10-28 09:50 | disposition home or self-care (01) ==
LOC: HO.MRI 09:49
PROVIDERS: PCP Internal Medicine; Visit Provider Internal Medicine Gastroenterology
DX: R10.13 Epigastric pain (principal)
CPT/HCPCS: 74183; A9585

== ENCOUNTER 2023-11-04 08:03 | Outpatient (REF) | payer OTHER, SELFPAY ==
[2023-11-04 09:02] LABS: C Reactive Protein 0.46 mg/dL (< or = 0.50); Rheumatoid Factor < 13.0 IU/mL (<15.0)
[2023-11-04 09:17] LABS: Erythrocyte Sedimentation Rate 13 MM/HR (0-20)
[2023-11-07 13:38] LABS: Immunoglobulin G 1287 mg/dL (600-1640)
[2023-11-07 14:18] LABS: Anti DNA DS Antibody 4 IU/mL
[2023-11-07 15:43] LABS: Anti Nuclear Antibody Screen NEGATIVE (NEGATIVE)
[2023-11-07 19:08] LABS: Cyclic Citrullinated Peptide 16 UNITS
== END 2023-11-04 08:04 | disposition home or self-care (01) ==
LOC: HO.LAB 08:03
PROVIDERS: PCP Internal Medicine; Visit Provider Internal Medicine Gastroenterology
DX: R79.82 Elevated C-reactive protein (CRP) (principal); K52.839 Microscopic colitis, unspecified; M54.9 Dorsalgia, unspecified
CPT/HCPCS: 36415; 82784; 85652; 86038; 86140; 86200; 86225; 86431

== ENCOUNTER 2023-11-08 12:49 | Outpatient (AMB) | payer OTHER, SELFPAY ==
--- NOTE | 2023-11-08 12:59 | MHC.OFFVIS ---
Vital Signs 11/08/23 13:01 Height 5 ft 4 in Weight 200 lb BMI 34.3 BP 111/74 Blood Pressure Location Lt brachial Position Sitting Pulse 118 H Intake Visit Reasons: RUQ pain, sludge in the GB Intake Note: Patient is seen in office for evaluation and treatment of right upper quadrant pain, sludge in the GB. Pt c/o: onset 2 months, nausea, RUQ pain, vomit, had imaging done, started as burning sensation, diarrhea comes and goes, worse after meals MRI: 10/28/23 Tack Welder Required: No Accompanied by: Self / Same As Patient Allergies penicillin V Allergy (Mild, Verified 11/08/23 13:03) Rash Medication List - Last Reconciled 11/08/23 by Girma Dennis MD bupropion HCl SR (Wellbutrin SR) 100 mg PO BEDTIME buspirone 5 mg PO TID esomeprazole magnesium 20 mg PO DAILY lidocaine 4% (Aspercreme (lidocaine)) 1 patch topical BID PRN nortriptyline 10 mg PO BEDTIME sumatriptan succinate PO HPI Comments Details: 20-year-old female patient presenting with complaints of nausea and vomiting with occasional abdominal discomfort in the right upper quadrant. Patient was worked up with ultrasound which was negative for gallstones however subsequent MRI revealed sludge within the gallbladder. She reports the symptoms have been persisting and are felt daily. She presents today to discuss possible cholecystectomy. Denies fever, chills, or other systemic symptoms. [facility] Medical History Migraine Depression Asthma Surgical History History of esophagogastroduodenoscopy (EGD) H/O colonoscopy Hx of hernia repair Social History Patient Tobacco Use Status: Never used Tobacco Review of Systems Const All systems reviewed & are unremarkable except as noted in HPI and below GI Reports abdominal pain, Reports nausea and Reports vomiting Physical Exam Const General: cooperative and no acute distress Nutritional Appearance: well nourished Orientation/consciousness: patient oriented x3 Limitations: no limitations HEENT Head: Yes normocephalic and Yes atraumatic Ears: hearing grossly normal bilaterally Resp Effort & Inspection: normal respiratory effort, no audible wheezes, no cough and no respiratory distress Cardio Jugular venous distension: no JVD GI Inspection: Yes normal to inspection Palpation (GI): Soft to palpation, Tenderness to palpation present (GI) in the RUQ and Huang's sign positive, no guarding and not rigid Percussion: Yes normal to percussion Auscultation: normal bowel sounds Skin Other: Warm, dry, no rash Neuro General: patient oriented x3 Extrem General: Yes no clubbing, cyanosis or edema Assessment & Plan Assessment & Plan (1) Biliary colic: Code(s): K80.50 - Calculus of bile duct without cholangitis or cholecystitis without obstruction Category: Medical (2) Biliary sludge: Code(s): K83.8 - Other specified diseases of biliary tract Category: Medical Plan 28-year-old female patient presenting with complaints of nausea, vomiting, upper right abdomen discomfort found to have biliary sludge on MRI. Symptoms do seem consistent with biliary colic and are reproducible with p.o. intake. It is difficult to know for sure if cholecystectomy will resolve her symptoms. After discussion of the procedure, risks and alternatives, she consents to a laparoscopic or possible open cholecystectomy. This will be performed as a short-stay surgery at her earliest convenience. Coding Level of Care Code New Pt Level 4 (05682) Diagnoses Biliary colic K80.50 Biliary sludge K83.8
[2023-11-08 13:01] VITALS: BP 111/74; PULSE 118; BMI 34.3
== END 2023-11-08 13:09 | disposition home or self-care (01) ==
PROVIDERS: PCP Internal Medicine; Referring Provider Internal Medicine Gastroenterology; Visit Provider Surgery
DX: K80.50 Calculus of bile duct without cholangitis or cholecystitis without obstruction (principal); K83.8 Other specified diseases of biliary tract
CPT/HCPCS: 99204

== ENCOUNTER → 2023-11-08 12:49 | Outpatient (BNVA) | payer OTHER, SELFPAY | PROVIDERS: PCP Internal Medicine; Referring Provider Internal Medicine Gastroenterology; Visit Provider Surgery ==

== ENCOUNTER 2023-11-30 07:15 | Outpatient (REF) | payer OTHER, SELFPAY ==
[2023-11-30 07:41] LABS: MANUAL DIFF FLAG NO
[2023-11-30 07:43] LABS: Basophils Percent Auto 0.3 % (0-2); Eosinophils Absolute Auto 0.2 X10*3/uL (0.0-0.4); Hematocrit 37.8 % (37.0-47.0); Hemoglobin 12.6 g/dl (12.0-16.0); Imm Gran Abs Auto 0.03 X10*3/uL (0.00-0.03); Imm Gran Pct Auto 0.4 % (0.0-0.4); Lymphocytes Absolute Auto 2.4 X10*3/uL (1.2-4.9); Mean Corpuscular HGB Conc 33.3 g/dl (31.0-35.0); Mean Corpuscular Hemoglobin 29.5 pg (27.0-33.0); Mean Corpuscular Volume 88.5 fL (80.0-98.0); Monocytes Absolute Auto 0.4 X10*3/uL (0.1-1.2); Monocytes Percent Auto 6.3 % (2-11); Neutrophils Absolute Auto 3.7 x10*3/uL (2.0-8.3); Platelet Count 226 X10*3/uL (160-400); Red Blood Count 4.27 X10*6/uL (4.20-5.50); Red Cell Distribution Width 12.8 % (11.0-16.0); White Blood Count 6.7 X10*3/uL (4.8-10.8)
[2023-11-30 09:01] LABS: Alanine Aminotransferase 13 U/L (0-31); Albumin Level 4.1 g/dL (3.5-5.0); Alkaline Phosphatase 95 U/L (39-117); Anion Gap 12 (12-20); Aspartate Amino Transferase 17 U/L (5-31); Bilirubin Total 0.3 mg/dL (0.0-1.0); Blood Urea Nitrogen 15 mg/dL (9-16); Calcium 8.8 mg/dL (8.4-10.2); Carbon Dioxide 22 mmol/L (22-29); Chloride 109 mmol/L (96-108); Estimated Glomerular Filt Rate > 60; Glucose Random 96 mg/dL (60-115); Sodium 139 mmol/L (135-145); Total Protein 7.2 g/dL (6.5-8.0)
[2023-11-30 09:07] LABS: Ferritin 36 ng/mL (10-122); Vitamin D 25-OH Total 29.8 ng/mL (>30)
[2023-11-30 09:12] LABS: Folate 5.1 ng/mL (> or = 4.0); Vitamin B12 753 pg/mL (200-900)
[2023-12-03 04:43] LABS: Zinc 53 mcg/dL (60-130)
[2023-12-05 01:18] LABS: Vitamin K1 359 pg/mL (130-1500)
[2023-12-05 02:48] LABS: Alpha-Tocopherol 10.9 mg/L (5.7-19.9); Beta-Gamma Tocopherol <1.0 mg/L (<=4.3); Vitamin A 33 mcg/dL (38-98)
[2023-12-05 12:09] LABS: Vitamin B1 13 nmol/L (8-30)
[2023-12-05 16:34] LABS: Vitamin B6 9.9 ng/mL (2.1-21.7)
[2023-12-08 10:38] LABS: Nicotinamide 29 ng/mL; Vit B3 - Nicotinic Acid <20 ng/mL
[2023-12-08 10:59] LABS: Vitamin B5 (Pantothenic Acid) <40 ng/mL (<275)
[2023-12-09 10:39] LABS: Vitamin C 0.9 mg/dL (0.3-2.7)
== END 2023-11-30 07:16 | disposition home or self-care (01) ==
LOC: HO.LAB 07:15
PROVIDERS: PCP Internal Medicine; Visit Provider Internal Medicine Gastroenterology
DX: E46 Unspecified protein-calorie malnutrition (principal); K80.50 Calculus of bile duct without cholangitis or cholecystitis without obstruction; K75.81 Nonalcoholic steatohepatitis (NASH)
CPT/HCPCS: 36415; 80053; 82180; 82306; 82607; 82728; 82746; 84207; 84425; 84446; 84590; 84591; 84597; 84630; 85025

== ENCOUNTER 2023-12-12 07:17 | Day surgery (SDC) | payer OTHER, SELFPAY ==
--- NOTE | 2023-12-08 09:41 | HO.ANESPROP2 ---
Documented by User: Rosie Arias NP 12/08/23 09:41 HPI - Anesthesia Eval Consult details Narrative: 28yo F for Colonoscopy [facility] Active Problems Active Problems: All Active Problems Malnutrition (Acute) Biliary sludge (Acute) Biliary colic (Acute) RUQ pain (Acute) Spine pain (Acute) Migraine (Acute) Epigastric abdominal pain (Acute) Upper respiratory tract infection (Acute) Past Medical History Medical History Migraine Depression Asthma Family History Family history of problems with anesthesia: No Surgical History Surgical History History of esophagogastroduodenoscopy (EGD) H/O colonoscopy Hx of hernia repair History of Problems with Anesthesia: No Social History Social History Patient Tobacco Use Status: Never used Tobacco Are you DNR?: No Advance Directives: No Advance Directives Information Provided: Yes Nutrition Risks: No Nutritional Risk Meds Allergies Allergy/AdvReac Type Severity Reaction Status Date / Time penicillin V Allergy Mild Rash Verified 11/08/23 13:03 Home Medications ?Medication ?Instructions ?Recorded ?Confirmed ?Last Taken ?Type buspirone 5 mg tablet 5 mg PO TID 09/15/23 11/08/23 Unknown History sumatriptan succinate 25 mg tablet PO 09/15/23 11/08/23 Unknown History Assessment and Plan Assessment Anesthesia Assessment: Chart Reviewed Final Anesthetic Review Family History of Problems with Anesthesia: No History of Problems with Anesthesia: No Documented by User: Erlin Newton MD 12/12/23 08:16 PMF Past Medical History Medical History Migraine Depression Asthma Surgical History Surgical History History of esophagogastroduodenoscopy (EGD) H/O colonoscopy Hx of hernia repair Social History Social History Patient Tobacco Use Status: Never used Tobacco Are you DNR?: No Advance Directives: No Advance Directives Information Provided: Yes Nutrition Risks: No Nutritional Risk Meds Allergies Allergy/AdvReac Type Severity Reaction Status Date / Time penicillin V Allergy Mild Rash Verified 11/08/23 13:03 Home Medications ?Medication ?Instructions ?Recorded ?Confirmed ?Last Taken ?Type buspirone 5 mg tablet 5 mg PO TID 09/15/23 11/08/23 Unknown History sumatriptan succinate 25 mg tablet PO 09/15/23 11/08/23 Unknown History Exam Airway Mallampati Class: II TM Dist: >3cm Neck ROM: Full Loose/Missing/Broken Teeth: No Heart: rrr Lungs: cta Assessment and Plan Assessment Anesthesia Assessment: Anesthesia Plan Discussed Final Anesthetic Review NPO: Yes ASA Class: II Final Preanesthetic Review: No Changes in Pt Med Stat, Meds/Allgs Chart Reviewed, Consent Obtained/Reviewed and Anes Risks/Benef Reviewed Patient Risk: Intermediate Procedure Risk: Intermediate Anesthetic Plan Anesthetic Plan: TIVA Disposition: Standard PACU
[2023-12-08 13:35] VITALS: BMI 33.8
[2023-12-12 07:44] VITALS: BP 127/86; PULSE 110; RESP 18; TEMP 36.1; O2SAT 98; BMI 35.4
[2023-12-12 07:53] LABS: UPreg QC Valid YES
[2023-12-12 07:54] LABS: Urine Pregnancy NEGATIVE (NEGATIVE)
--- NOTE | 2023-12-12 08:25 | MHC.SHP ---
Pre-Procedural Eval Section A - 24 Hr Update-Section A only Date of Service: 12/12/23 The patient is an INPATIENT: No The patient has been examined within 24 hours of the surgical procedure. The History & Physical has been completed within 30 days and I have reviewed it.: No Section B - Complete if H&P > 30 days Chief Complaint: Rectal bleeding Relevant Family History (Specify if Yes): No Relevant Social History: None Present Medications: see Short Stay Collaborative assessment Medical History: Significant History (Migraine Depression Asthma) History of Previous Operations: Relevant previous surgery/procedure and date(s) (History of esophagogastroduodenoscopy (EGD) H/O colonoscopy Hx of hernia repair) Allergies: Allergies Allergy/AdvReac Type Severity Reaction Status Date / Time penicillin V Allergy Mild Rash Verified 11/08/23 13:03 Review of Systems Sugical H&P ROS: Negative: Constitution, Cardiovascular and Respiratory and Yes, Specify: Gastrointestinal (rectal bleeding) Exam Surgical H&P Exam: Normal: Heart, Normal: Lungs, Normal: Extremities and Normal: Abdomen Plan Diagnosis/Plan: Change (proceed with colonoscopy) I have reviewed the history and physical and performed a pertinent physical examination on my patient. No changes have occurred unless specified. Time Spent With Patient Time: Total time managing care of this patient today ____ minutes.
[2023-12-12 10:12] VITALS: BP 120/88; PULSE 88; RESP 16; TEMP 36.9; O2SAT 99
--- NOTE | 2023-12-12 10:19 | HO.OPN-COLON ---
Colonoscopy Operative Note Operative Note Date of Service: 12/12/23 Narrative: COLONOSCOPY TILL CECUM WITH BIOPSIES Pre-op diagnosis: Rectal bleeding - bright red blood sometimes mixed and sometimes separate from the stools Post-op diagnosis:? Normal colonoscopy Endoscopist:? Malika Brunner MD Anesthesia:?MAC Consent: Indications for the procedure and potential complications of bleeding, perforation, reaction to medications and missed diagnosis were discussed with the patient and informed consent was obtained. Instrument: Olympus PCF H 190 L variable stiffness pediatric colonoscope Monitoring: Vital signs and clinical assessment, intermittent blood pressure monitoring, continuous EKG monitoring, Pulse oximetry and Carbon Dioxide monitoring were done throughout the procedure. Please see anesthesia flowsheet. Colon withdrawl time was 15 minutes. Procedure: The patient was placed in the left lateral decubitis position and pre-procedure medications were administered. After a digital rectal examination of the ano-rectum, the video colonoscope was inserted into the rectum and advanced through the colon to the cecum. The colonoscope was slowly withdrawn in a retrograde panoramic fashion and the colon mucosa was carefully examined including a retroflexed view of the rectum. Findings and interventions are described below. Procedure Difficulty: without difficulty Findings: Terminal Ileum: Not evaluated Cecum: Normal Ascending Colon: Normal Transverse Colon: Normal Descending Colon: Normal Sigmoid Colon: Normal Rectum: Normal Ano-rectum: No hemorrhoids or fissure noted Colon preparation: Good after some irrigation. [place] Bowel Preparation Scale Right colon; 2 Transverse colon: 2 Left colon; 2 (0 = Unprepared colon segment with mucosa not seen due to solid stool that cannot be cleared. 1 = Portion of mucosa of the colon segment seen, but other areas of the colon segment not well seen due to staining, residual stool and/or opaque liquid. 2 = Minor amount of residual staining, small fragments of stool and/or opaque liquid, but mucosa of colon segment seen well. 3 = Entire mucosa of colon segment seen well with no residual staining, small fragments of stool or opaque liquid) Impression and Post Procedure Diagnosis: Colonoscopy Findings: No polyps were detected Random biopsies were obtained from the left colon Plan: I will send a letter with biopsy results Repeat Colonoscopy in 15 to 17 years if biopsies are normal. Above findings were reviewed with the patient.
[2023-12-12 10:29] VITALS: BP 108/77; PULSE 87; RESP 18; TEMP 36.9; O2SAT 100
== END 2023-12-12 11:35 | disposition home or self-care (01) ==
PROVIDERS: Nurse Practitioner; PCP Internal Medicine; Visit Provider Internal Medicine Gastroenterology
PROC: 0DJD8ZZ Inspection of Lower Intestinal Tract, Via Natural or Artificial Opening Endoscopic (ICD-10-PCS; CPT 45378; principal; 2023-12-12 09:10)
DX: K62.5 Hemorrhage of anus and rectum (principal); K52.9 Noninfective gastroenteritis and colitis, unspecified; Z88.0 Allergy status to penicillin
CPT/HCPCS: 45380; 81025; 88305; J2704

== ENCOUNTER → 2023-12-12 07:17 | Outpatient (BNV) | payer OTHER, SELFPAY | PROVIDERS: PCP Internal Medicine; Visit Provider Internal Medicine Gastroenterology | DX: K62.5 Hemorrhage of anus and rectum (principal) | CPT/HCPCS: 45380 ==

== ENCOUNTER → 2024-01-11 11:22 | Outpatient (REF) | payer OTHER, SELFPAY ==
--- NOTE | 2024-01-11 11:25 | HM_ITS ---
* Total monitoring time 3 hours and 21 minutes. * Underlying rhythm is sinus tachycardia with an average rate of 115/Min. About 84% of the time, rate > 100/Min. * No significant arrhythmias otherwise. * No significant pauses or AV blocks. * Patient markers used in association with sinus tachycardia. * Shortness of breath, chest discomfort in patient diary correlates with sinus tachycardia. Other entries were outside of scan range. MTDD
== END ==
LOC: HO.CARD 11:22
PROVIDERS: Visit Provider Internal Medicine Cardiovascular Disease
DX: R00.0 Tachycardia, unspecified (principal); R06.02 Shortness of breath
CPT/HCPCS: 93242

== ENCOUNTER → 2024-01-11 11:25 | Outpatient (BNV) | payer OTHER, SELFPAY | PROVIDERS: Visit Provider Internal Medicine | DX: R00.0 Tachycardia, unspecified (principal) | CPT/HCPCS: 93227 ==

== ENCOUNTER → 2024-01-13 09:40 | Outpatient (REF) | payer OTHER, SELFPAY ==
--- NOTE | 2024-01-13 09:42 | CA_ITS ---
Transthoracic Echocardiogram Patient (Last, First, Middle): Paris Saldana M Gender: Female Date of : 1995 Age: 28 Procedure Date: 01/13/2024 Procedure Type: Transthoracic Echocardiogram Location: OP Height: 162.56 cm Weight: 90.72 kg BSA: 1.96 m2 Heart Rate: 76 bpm BP: 110 / 76 mmHg Tie Hacker: VELIA Referring MD: Ge Rod MD Curtain Cutter Hand: Ge Rod MD Symptoms: R00.0 - Tachycardia, unspecified Study Quality: Fair but adequate ECG Rhythm: Sinus Conclusions: - The left ventricular systolic function is low normal. The visually estimated ejection fraction is between 50-55%. - No obvious valvular pathology seen on this study. Findings Procedure Information The quality of the study was technically difficult. The study quality is limited by patients body habitus. Left Ventricle Normal left ventricular cavity size. There is normal left ventricular wall thickness. The left ventricular systolic function is low normal. The visually estimated ejection fraction is between 50-55%. There is no evidence of regional wall motion abnormalities. Diastolic function is normal for age. Right Ventricle Normal right ventricular cavity size and systolic function. Atria Both atria are normal in size. Aortic Valve There is a normal trileaflet aortic valve. There is no aortic valve stenosis. There is no aortic valve regurgitation. Mitral Valve The mitral valve appears normal. There is no mitral valve regurgitation. There is no mitral valve stenosis. Pulmonic Valve The pulmonic valve is likely normal. Tricuspid Valve Normal tricuspid valve structure. There is trace tricuspid valve regurgitation. There is no evidence of pulmonary hypertension. Great Vessels The asc aorta and aortic arch are normal in size. Venous The inferior vena cava collapses less than 50% with inspiration. Pericardium/Pleural There is no evidence of pericardial effusion. Prior Study Comparison No prior study available for comparison. Recommendations, Care & Conclusions No obvious valvular pathology seen on this study. Measurements 2D Linear Measurements IVSd: 0.95 0.6-0.9/0.6-1.0 cm LVIDd: 4.38 3.9-5.3/4.2-5.9 cm LVIDd Index: 2.23 2.4-3.2/2.2-3.1 cm/m2 LVIDs: 2.96 2.0-3.6 cm LVPWd: 0.56 0.7-1.1 cm LA Diam: 3.20 2.7-3.8/3.0-4.0 cm LAIDs Index: 1.63 1.5-2.3 cm/m2 LV Mass: 125.55 67-162/88-224 g LV Mass Index: 64.06 43-95/49-115 g/m2 LVOT Diam: 1.80 3.0+(-)1.3 cm 2D Systolic Function EF 4C: 52.60 >55% EF 2C: 59.00 >55% EF BiP: 55.30 >55% Mitral Valve MV Pk E: 0.72 MV PK A: 0.50 MV Decel Time: 150.00 E/A: 1.40 E'Lateral: 13.50 E'Medial: 7.29 E/E' Med: 9.90 E/E' Lat: 5.40 PHT: 44.00 MVA PHT: 5.00 Decel Kimball: 4.84 Aortic Valve AoV Pk Rio: 1.12 AoV Pk Grad: 5.00 NATHANIEL: 2.31 LVOT LVOT Pk Rio: 0.99 LVOT Mn Rio: 0.67 LVOT VTI: 0.18 LVOT Pk Grad: 4.00 LVOT Mn Grad: 2.00 LVOT Diam: 1.80 LVOT Area: 2.54 Diastolic Function MV Pk E: 0.72 MV Pk A: 0.50 E/A: 1.40 E'Medial: 7.29 E/E' Med: 9.90 E' Laterial: 13.50 E/E' Lat: 5.40 Right Ventricle TAPSE (mm): 17.80 TVS' Rio: 10.70 Tricuspid Valve TR Pk Rio: 1.64 TR Pk Grad: 11.00 RA Press: 3.00 RVSP: 14.00 Great Vessels Aorta Sinus of Valsalva: 2.70 2.0-3.5 cm Ao Asc: 3.10 2.1-3.4 cm Ao Arch: 2.50 Pulmonary Veins Pulm Vein S/D 1.00 Pulmonary Valve PV Pk Rio: 0.73 Peak PV Grad: 2.00 Updated in Other Vendor System with Status of Final Misbah Gibson MD electronically signed on 01/14/2024 12:54:00 PM with status of Final
== END ==
LOC: HO.CARD 09:40
PROVIDERS: PCP Internal Medicine; Visit Provider Internal Medicine Cardiovascular Disease
DX: R00.0 Tachycardia, unspecified (principal)
CPT/HCPCS: 93306

== ENCOUNTER → 2024-01-13 09:42 | Outpatient (BNV) | payer OTHER, SELFPAY | PROVIDERS: PCP Internal Medicine; Visit Provider Internal Medicine | DX: I36.1 Nonrheumatic tricuspid (valve) insufficiency (principal) | CPT/HCPCS: 93306 ==

== ENCOUNTER 2024-01-19 12:00 | Outpatient (AMB) | payer OTHER, SELFPAY ==
[2024-01-19 13:38] VITALS: BP 122/70; PULSE 98; BMI 39.3
--- NOTE | 2024-01-19 13:38 | MHC.OFFVIS ---
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: No Accompanied by: Self / Same As Patient Allergies penicillin V Allergy (Mild, Verified 11/08/23 13:03) Rash Medication List - Last Reconciled 01/19/24 by Ge Rod MD bupropion HCl SR (Wellbutrin SR) 100 mg PO BEDTIME buspirone 5 mg PO TID cholecalciferol (vitamin D3) 50 mcg PO DAILY esomeprazole magnesium 20 mg PO DAILY lidocaine 4% (Aspercreme (lidocaine)) 1 patch topical BID PRN linaclotide 72 mcg PO DAILY mupirocin 2% 1 appl topical BID 30 days nortriptyline 10 mg PO BEDTIME sulfamethoxazole-trimethoprim 800-160 mg (Bactrim DS) 1 tab PO BID 10 days sumatriptan succinate PO thiamine HCl (vitamin B1) 100 mg PO DAILY vitamin A palmitate 3,000 mcg PO DAILY zinc sulfate 50 mg PO DAILY HPI Comments Details: 28-year-old female here for tachycardia. She has been experiencing dizziness and lightheadedness, atypical chest pains and flushing off and on for approximately 6 months. She recalls that her heart rate has been fast previously on doctor visits and recently she noticed that her heart rate has been up even during minimal activities. She had an echocardiogram performed which showed low normal ejection fraction without any valvular pathology or pericardial disease. She also had 3 day Holter monitor where she had sinus tachycardia 84% of time. She is saying that she does not feel the palpitations but every time she checks her heart rate is fast. 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 She is taking nortriptyline because she has GI issues and migraine. She said she was given propranolol before but had some low blood pressures after that and could not tolerate it. [facility] Medical History Migraine Depression Asthma Surgical History History of esophagogastroduodenoscopy (EGD) H/O colonoscopy Hx of hernia repair Social History Patient Tobacco Use Status: Never used Tobacco Review of Systems Const Denies chills, Denies fatigue, Denies fever(s), Denies frequent falls, Denies weakness, Denies weight gain and Denies weight loss ENT Denies dizziness Card Denies chest pain, Denies leg edema, Denies lightheadedness, Denies palpitations, Denies dyspnea, Denies dyspnea on exertion and Denies orthopnea Resp Denies cough, Denies dyspnea and Denies dyspnea on exertion GI Denies bloating and Denies change in bowel habits Musc Denies muscle weakness, Denies numbness and Denies tingling Neuro Denies dizziness, Denies frequent falls, Denies numbness, Denies tingling and Denies weakness Endo Denies fatigue and Denies palpitations Physical Exam Vital Signs: Last Vital Signs Pulse 98 01/19/24 13:38 BP 122/70 01/19/24 13:38 BMI result Body Mass Index 39.3 GENERAL APPEARANCE: in no acute distress, pleasant. NECK: no carotid bruit, no jugular venous distention. SKIN: no suspicious lesions, warm and dry. HEART: no murmurs, regular rate and rhythm. LUNGS: clear to auscultation bilaterally. ABDOMEN: soft, nontender. EXTREMITIES: no edema. PERIPHERAL PULSES: equal. NEUROLOGIC: No gross deficits, AAO X 3 Assessment & Plan Assessment & Plan (1) Tachycardia: Code(s): R00.0 - Tachycardia, unspecified Category: Medical (2) Dizziness: Code(s): R42 - Dizziness and giddiness Category: Medical Plan 28-year-old female who is here for multiple complaints. She had echocardiography which is fairly normal. Holter monitor has shown tachycardia 84% of times. Symptoms are pointing towards some sort of autonomic dysfunction with unclear etiology currently. She had COVID-19 infection 3 times in the past. It is possible that due to viral illness she developed some autonomic issue. She has started drinking more water and I have advised her to drink Gatorade and increase salt intake. I have also advised her to start exercising and do exercises with upright posture like stationary bike and rowing machine. She can also try some compression stockings. So far she is quite functional and these symptoms are not very advanced for her but if the progress then we may have to consider medications. She is on nortriptyline which can cause tachycardia by anticholinergic effects but she has been doing well with migraine and her GI complaints with nortriptyline. She also has anxiety and is taking buspirone. We will try conservative measures and bring her back in 4 months. Thank you for allowing me to participate in the care of your patient. Please feel free to contact me if you have any questions. Coding Level of Care Code New Pt Level 4 (40190) Diagnoses Tachycardia R00.0 Dizziness R42
== END 2024-01-19 14:19 | disposition home or self-care (01) ==
PROVIDERS: PCP Internal Medicine; Visit Provider Internal Medicine Cardiovascular Disease
DX: R00.0 Tachycardia, unspecified (principal); R42 Dizziness and giddiness
CPT/HCPCS: 93010; 99204

== ENCOUNTER → 2024-01-19 12:00 | Outpatient (BNVA) | payer OTHER, SELFPAY | PROVIDERS: PCP Internal Medicine; Visit Provider Internal Medicine Cardiovascular Disease | DX: R00.0 Tachycardia, unspecified (principal); R42 Dizziness and giddiness | CPT/HCPCS: 93005 ==

== ENCOUNTER 2024-02-10 07:35 | Outpatient (REF) | payer OTHER, SELFPAY | END 2024-02-10 07:36 | disposition home or self-care (01) | LOC: HO.LNP 07:35 | PROVIDERS: PCP Internal Medicine; Visit Provider Surgery | DX: L98.9 Disorder of the skin and subcutaneous tissue, unspecified (principal) | CPT/HCPCS: 11104; 88304; 88305; 88312 ==

== ENCOUNTER 2024-02-10 07:35 | Outpatient (AMB) | payer OTHER, SELFPAY ==
--- NOTE | 2024-02-10 08:31 | A.OFFVIS_ITS ---
Vital Signs 3 02/10/24 08:55 BP 110/72 Blood Pressure Location Lt brachial Position Sitting Pulse 72 Intake Visit Reasons: needs biopsy of non resolving lesion Intake Note: Pt states, I've had this for 4-5 months and it won't go away. c/o clear fluid draining at times - bleeds if scratched. Has had 2 courses of antibiotics Pier Worker Required: No Allergies penicillin V Allergy (Mild, Verified 02/10/24 08:32) Rash Medication List - Last Reconciled 02/10/24 by Dewayne Mcgarry RN bupropion HCl SR (Wellbutrin SR) 100 mg PO BEDTIME buspirone 5 mg PO TID cholecalciferol (vitamin D3) 50 mcg PO DAILY esomeprazole magnesium 20 mg PO DAILY linaclotide 72 mcg PO DAILY mupirocin 2% 1 appl topical BID 30 days nortriptyline 10 mg PO BEDTIME ondansetron 4 mg PO Q8H PRN sumatriptan succinate PO thiamine HCl (vitamin B1) 100 mg PO DAILY vitamin A palmitate 3,000 mcg PO DAILY zinc sulfate 50 mg PO DAILY Patient : No HPI Comments Details: [place] returns today with a nonhealing lesion on her right medial ankle. She reports an area of eczema at this site which occasionally is increased redness with occasional bloody discharge. She has been on several courses of antibiotics without significant improvement. She presents today for possible skin biopsy to help with the diagnosis. She denies any previous biopsies at the site. [facility] Medical History Migraine Depression Asthma Surgical History History of esophagogastroduodenoscopy (EGD) H/O colonoscopy Hx of hernia repair Social History Patient Tobacco Use Status: Never used Tobacco Patient : No Review of Systems Const All systems reviewed & are unremarkable except as noted in HPI and below Physical Exam Const General: comfortable and no acute distress Nutritional Appearance: well nourished Orientation/consciousness: patient oriented x3 Limitations: no limitations Resp Effort & Inspection: normal respiratory effort Skin Other: Warm, dry, lesion in right lower extremity as noted below Neuro General: patient oriented x3 Extrem Ankle/foot/toe images: 2 1. 2 cm scaly lesion with a reddish discoloration but no ulceration or bleeding at this time. No underlying abscess appreciated. Office Procedures Punch Biopsy Punch biopsy performed by: Girma Dennis Informed consent given: Yes Consent signed: Yes Time out checklist: patient, procedure, site marked/identified, positioning of patient, supplies available, allergies confirmed and team agrees on procedure Time out staff in room: Yes Time out verified: Yes Time out date: 02/10/24 Time out time: 08:45 Anesthesia: 1% lidocaine Preparation: betadine Biopsy performed (mm): 2 Hemostasis: pressure Patient tolerated procedure: well Complications: No Assessment & Plan Assessment & Plan (1) Leg skin lesion, right: Code(s): L98.9 - Disorder of the skin and subcutaneous tissue, unspecified Category: Medical Plan 29-year-old female patient returning for a skin lesion of the right leg at an area eczema. After discussion of the procedure, risks and alternatives, she consents to a punch biopsy. A punch biopsy was performed at the margin of the wound and sent to pathology for further examination. Patient tolerated the procedure well. Coding Level of Care Code Est Pt Level 3 (92714) Diagnoses Leg skin lesion, right L98.9
[2024-02-10 08:55] VITALS: BP 110/72; PULSE 72
== END 2024-02-10 08:58 | disposition home or self-care (01) ==
PROVIDERS: PCP Internal Medicine; Visit Provider Surgery
DX: L98.9 Disorder of the skin and subcutaneous tissue, unspecified (principal)
CPT/HCPCS: 11104; 99213

== ENCOUNTER 2024-02-21 08:09 | Inpatient (IN) | payer OTHER, SELFPAY ==
[2024-02-21] VITALS (15 sets, daily range): BP systolic 100–115; BP diastolic 52–75; PULSE 82–104; RESP 12–24; TEMP 36.2–37.6; O2SAT 96–100; BMI 36.0; BMI 36.1
--- NOTE | ~2024-02-21 | CT_ITS ---
EXAMINATION: CT ABDOMEN AND PELVIS WITH CONTRAST CLINICAL INFORMATION: Right lower quadrant pain COMPARISON: Abdominal MRI October 28, 2023 and abdominal ultrasound October 04, 2023 TECHNIQUE: Multidetector volumetric images were obtained from the superior aspect of the liver through the pubic symphysis following administration 85 mL of Omnipaque 350 intravenous contrast. Sagittal and coronal reformatted images were obtained on the technologist's workstation. Oral contrast: No This CT examination was performed using dose optimization techniques as appropriate, variously including the following: *Automated exposure control *Adjustment of mA and/or kV according to patient size (this includes techniques or standardized protocols for targeted exams where dose is matched to indication/reason for exam; i.e. extremities or head) *Use of iterative reconstruction technique DLP: 690 mGy-cm FINDINGS: Visualized lung bases demonstrate mild dependent atelectasis. The liver is mildly enlarged and demonstrates diffusely decreased attenuation. The gallbladder is normal in appearance. The pancreas, spleen and adrenal glands are unremarkable. Symmetrically enhancing kidneys without hydronephrosis. Normal caliber loops of small and large bowel. Mild colonic stool burden. The appendix is dilated measuring up to 1.1 cm. There is periappendiceal fat stranding present. No complicating periappendiceal abscess. Normal caliber abdominal aorta. No retroperitoneal lymphadenopathy. Tiny fat-containing umbilical hernia. The bladder is normal in appearance. Unremarkable CT appearance of the uterus. Trace amount of free pelvic fluid, often times physiologic. No inguinal lymphadenopathy. No acute osseous abnormality. CT/CT abdomen pelvis w IV con IMPRESSION: CT findings most consistent with acute appendicitis. No complicating abscess. This Critical Result was discussed with Talia Key at 11:47 AM on February 21, 2024 and it was ascertained that the content and urgency of the report was understood at the time of direct communication.
[2024-02-21 08:37] LABS: MANUAL DIFF FLAG NO
[2024-02-21 08:41] LABS: Appearance Urine Cloudy; Color Urine Yellow; Glucose Urine UA Negative (Negative); Leukocyte Esterase Urine Moderate (2+) (Negative); Nitrite Urine Negative (Negative); PH 6.5 (5.0-9.0); UMIC TRIGGER UACC YES; Urine Blood Trace (Negative); Urine Ketones Negative (Negative); Urine Protein Negative (Neg-Trace)
[2024-02-21 08:42] LABS: UPreg QC Valid YES; Urine Pregnancy NEGATIVE (NEGATIVE)
[2024-02-21 08:42] LABS: Basophils Percent Auto 0.2 % (0-2); Eosinophils Absolute Auto 0.2 X10*3/uL (0.0-0.4); Eosinophils Percent Auto 1.2 % (0-4); Hematocrit 38.9 % (37.0-47.0); Hemoglobin 12.8 g/dl (12.0-16.0); Imm Gran Abs Auto 0.09 X10*3/uL (0.00-0.03); Imm Gran Pct Auto 0.6 % (0.0-0.4); Lymphocytes Absolute Auto 2.3 X10*3/uL (1.2-4.9); Lymphocytes Percent Auto 14.7 % (20-40); Mean Corpuscular HGB Conc 32.9 g/dl (31.0-35.0); Mean Corpuscular Hemoglobin 29.5 pg (27.0-33.0); Mean Corpuscular Volume 89.6 fL (80.0-98.0); Monocytes Absolute Auto 0.5 X10*3/uL (0.1-1.2); Monocytes Percent Auto 3.4 % (2-11); Neutrophils Absolute Auto 12.5 x10*3/uL (2.0-8.3); Neutrophils Percent Auto 79.9 % (45-73); Platelet Count 241 X10*3/uL (160-400); Red Blood Count 4.34 X10*6/uL (4.20-5.50); Red Cell Distribution Width 13.2 % (11.0-16.0); White Blood Count 15.7 X10*3/uL (4.8-10.8)
[2024-02-21 08:46] LABS: Bacteria Urine 1+ (None Seen); Hyaline Casts Urine 0-2 /LPF (0-2); RBC Urine 0-2 /HPF (0-2); UACC Culture Trigger YES; WBC Urine 21-50 /HPF (0-5)
[2024-02-21 08:54] LABS: Alanine Aminotransferase 32 U/L (0-31); Albumin Level 4.1 g/dL (3.5-5.0); Alkaline Phosphatase 90 U/L (39-117); Anion Gap 13 (12-20); Aspartate Amino Transferase 27 U/L (5-31); Bilirubin Direct 0.1 mg/dL (0.0-0.5); Bilirubin Total 0.6 mg/dL (0.0-1.0); Blood Urea Nitrogen 14 mg/dL (9-16); Calcium 9.1 mg/dL (8.4-10.2); Carbon Dioxide 25 mmol/L (22-29); Chloride 108 mmol/L (96-108); Creatinine Clr Calc Pharmacy 119.1; Estimated Glomerular Filt Rate > 60; Glucose Random 94 mg/dL (60-115); Lipase 16 U/L (8-78); Potassium 4.2 mmol/L (3.3-5.1); Sodium 142 mmol/L (135-145); Total Protein 7.1 g/dL (6.5-8.0)
--- NOTE | 2024-02-21 09:53 | ED.ABDPAIN ---
HPI - Abdominal Pain General Chief Complaint: Abdominal Pain Stated Complaint: abd pain Time Seen by Provider: 02/21/24 09:41 Source: patient, family and RN notes reviewed Mode of arrival: ambulatory Limitations: no limitations History of Present Illness ED Provider: Talia Key PA-C HPI narrative: This is a 29-year-old female, with no known medical problems, presents emergency department with complaints of right lower quadrant pain since this morning. Patient reports that she awoke this morning, and noticed that she slowly developed to have right lower quadrant pain. She states that since she felt this pain it has been consistent. She reports associated nausea. She states that the pain worsens with walking around and to palpation. Denies history of similar symptoms in the past. She denies any fevers, chills, vomiting, diarrhea. She states that she does endorse some slight constipation, last moved her bowels this morning. Her last menses was February 14. She is sexually active, denies any abnormal vaginal discharge or bleeding. No concerns for any sexually transmitted infections. Denies history of abdominal surgeries. Denies history of similar symptoms in the past. She denies any dysuria, hematuria, urinary frequency or urgency. She states that when she does urinate she has some right lower quadrant pain. No other complaints or concerns at this time. MD elicited complaint: abdominal pain Pertinent past history: constipation Pain Consistency: constant Location: RLQ Severity: moderate Quality: aching Migration to: no migration Exacerbating factors: movement Relieving factors: nothing Associated symptoms: nausea Related Data Home Medications ?Medication ?Instructions ?Recorded ?Confirmed buspirone 5 mg tablet 5 mg PO TID 09/15/23 02/21/24 sumatriptan succinate 25 mg tablet 25 mg PO DAILY PRN Migraine 09/15/23 02/21/24 Headache Previous Rx's ?Medication ?Instructions ?Recorded bupropion HCl 100 mg tablet,12 hr 100 mg PO BEDTIME #7 tabs 10/10/23 sustained-release (Wellbutrin SR) nortriptyline 10 mg capsule 10 mg PO BEDTIME #90 caps 10/21/23 cholecalciferol (vitamin D3) 50 50 mcg PO DAILY #90 caps 12/07/23 mcg (2,000 unit) capsule thiamine HCl (vitamin B1) 100 mg 100 mg PO DAILY #90 tabs 12/07/23 tablet vitamin A palmitate 3,000 mcg 3,000 mcg PO DAILY #90 tabs 12/07/23 (10,000 unit) tablet zinc sulfate 50 mg zinc (220 mg) 50 mg PO DAILY #90 caps 12/07/23 capsule linaclotide 72 mcg capsule 72 mcg PO DAILY #30 caps 01/06/24 esomeprazole magnesium 20 mg 20 mg PO DAILY #30 caps 01/18/24 capsule,delayed release ondansetron 4 mg disintegrating 4 mg PO Q8H PRN nausea and 01/30/24 tablet vomiting #30 tabs Allergies Allergy/AdvReac Type Severity Reaction Status Date / Time penicillin V Allergy Mild Rash Verified 02/21/24 08:20 Review of Systems Review of Systems Yes all other systems are reviewed and are negative Constitutional: Reports as per [facility] Past Medical History Medical History Migraine Depression Asthma Surgical History History of esophagogastroduodenoscopy (EGD) H/O colonoscopy Hx of hernia repair Social History Social History Patient Tobacco Use Status: Never used Tobacco Advance Directives: No Advance Directives Information Provided: Yes Physical Exam ED Vital Signs: Vital Signs - 24 hr 02/21/24 08:18 02/21/24 10:35 Temperature 98 F 98.6 F Pulse Rate 82 85 Respiratory Rate 19 12 Blood Pressure 108/75 103/62 Pulse Oximetry 98 100 Oxygen Delivery Method Room Air Room Air BMI result Body Mass Index 36.0 Const General: cooperative, comfortable and no acute distress Orientation/consciousness: patient oriented x3 Limitations: no limitations [facility] Head: Yes normal to inspection, Yes normocephalic and Yes atraumatic Ears: hearing grossly normal bilaterally General nose exam: Normal external nose present Face and sinus: Yes normal facial exam Mouth: Normal oral and palatal mucosa present, oropharynx normal and moist mucous membranes Throat: Yes posterior oropharynx normal Eyes General: appearance normal, both eyes and all related structures Eyelids: Yes eyelids normal Conjunctivae: conjunctivae normal Sclerae: sclerae normal Pupils: Equal, round and reactive pupils present EOM: EOMs intact bilaterally Neck Neck: Yes normal visual inspection, Yes full ROM and Yes no lymphadenopathy Lymphatic: no lymphadenopathy noted Chest Chest palpation & inspection: normal inspection of the chest Resp Effort & Inspection: normal respiratory effort and able to speak in complete sentences Auscultation: clear to auscultation bilaterally, no crackles, no rales, no rhonchi and no wheezes Cardio Rate: regular rate Rhythm: regular rhythm Heart sounds: S1 normal heart sound present and S2 normal heart sound present GI Other: Abdomen is soft, with tenderness palpation in the right lower quadrant overlying McBurney's point. No guarding. Positive obturator sign, negative Rovsing's. Mild rebound tenderness. Inspection: Yes normal to inspection Skin General skin exam: no rashes or lesions noted Trauma: no lacerations or abrasions Wounds: no wounds Neuro General: patient oriented x3 and moves all extremities Cranial nerves: Yes Equal, round and reactive pupils present Extrem General: Yes normal to inspection Right upper extremity: normal to inspection Left upper extremity: normal to inspection Right lower extremity: normal to inspection Left lower extremity: normal to inspection Course Reevaluation(s) Reevaluation #1: Received call from radiology department, patient CT scan revealing acute appendicitis with stranding. No perforation or abscess. Discussed findings with patient and mother at bedside. Ordered blood cultures, lactic, and morphine. Sent message to Dr. Lobo. Patient does have allergy to penicillin which causes her to have hives, she had this as a child, no history of anaphylaxis. Inquired on antibiotic dosage was surgeon, awaiting to hear back Time: 11:59 Reevaluation #2: Discussed case with my attending physician, Dr. Alfaro, will hold antibiotics until hear back from surgical team. Time: 12:18 Reevaluation #3: Patient was seen by Dr. Lobo, patient will be admitted to the surgical service. Will medicate with ceftriaxone and Flagyl. Transfer of care initiated. Time: 12:22 Medical Decision Making Medical Decision Making MDM Narrative: This is a 29-year-old female, with no known medical problems, who presents emergency department with complaints of right lower quadrant pain which started this morning. On arrival, vital signs within normal limits. Abdomen is soft however does have right lower quadrant pain with rebound and positive obturator sign. Given physical exam findings concerning for appendicitis. Will obtain CT of the abdomen and pelvis with IV contrast to rule out. Other differential diagnoses include gastritis, gastroenteritis. She has no suprapubic tenderness to suggest ovarian torsion. She has no abnormal vaginal discharge to suggest PID or any inflammatory pelvic process at this time. Labs were obtained prior to my assessment, she does have a leukocytosis at 15.7 with left shift, chemistry revealing slight elevation in ALT, otherwise unremarkable. No evidence of CARMEN. Urine with trace blood, moderate leuk esterases, and wbc's as well as squamous cells. 1+ urine bacteria seen, this does appear to be contaminated therefore urinalysis is inconclusive to rule in or rule out UTI at this time. Patient declines antiemetic, and pain medication at this time. Will continue to monitor pending CT scan. Differential Diagnosis Differential Diagnoses: The differential diagnosis associated with the presentation includes See above Lab Data [facility] Lab Attestation statement: I reviewed the patient's lab results. See [facility] 02/21/24 08:28 02/21/24 08:28 Labs: Lab Results 02/21/24 02/21/24 02/21/24 Range/Units 08:28 08:33 12:15 WBC 15.7 H (4.8-10.8) X10*3/uL RBC 4.34 (4.20-5.50) X10*6/uL Hgb 12.8 (12.0-16.0) g/dl Hct 38.9 (37.0-47.0) % MCV 89.6 (80.0-98.0) fL MCH 29.5 (27.0-33.0) pg MCHC 32.9 (31.0-35.0) g/dl RDW 13.2 (11.0-16.0) % Plt Count 241 (160-400) X10*3/uL MPV 10.0 (9.4-12.3) fL Immature Gran % (Auto) 0.6 H (0.0-0.4) % Neut % (Auto) 79.9 H (45-73) % Lymph % (Auto) 14.7 L (20-40) % [place] % (Auto) 3.4 (2-11) % Eos % (Auto) 1.2 (0-4) % Baso % (Auto) 0.2 (0-2) % Lymph # (Auto) 2.3 (1.2-4.9) X10*3/uL [place] # (Auto) 0.5 (0.1-1.2) X10*3/uL Eos # (Auto) 0.2 (0.0-0.4) X10*3/uL Baso # (Auto) 0.0 (0.0-0.2) X10*3/uL Abs Immat Gran (auto) 0.09 H (0.00-0.03) X10*3/uL Absolute Neuts (auto) 12.5 H (2.0-8.3) x10*3/uL Absolute Nucleated RBC 0.000 (0.0-0.012) X10*3/uL Nucleated RBC % (auto) 0.0 (0.0-0.2) /100WBC Sodium 142 (135-145) mmol/L Potassium 4.2 (3.3-5.1) mmol/L Chloride 108 (96-108) mmol/L Carbon Dioxide 25 (22-29) mmol/L Anion Gap 13 (12-20) BUN 14 (9-16) mg/dL Creatinine 0.78 (0.5-1.4) mg/dL Estim Creat Clear Calc 119.1 Estimated GFR > 60 Random Glucose 94 (60-115) mg/dL Lactic Acid 0.8 (0.5-2.0) mmol/L Calcium 9.1 (8.4-10.2) mg/dL Total Bilirubin 0.6 (0.0-1.0) mg/dL Direct Bilirubin 0.1 (0.0-0.5) mg/dL AST 27 (5-31) U/L ALT 32 H (0-31) U/L Alkaline Phosphatase 90 (39-117) U/L Total Protein 7.1 (6.5-8.0) g/dL Albumin 4.1 (3.5-5.0) g/dL Lipase 16 (8-78) U/L Urine Color Yellow Urine Appearance Cloudy Urine pH 6.5 (5.0-9.0) Ur Specific [place] 1.020 (1.005-1.025) Urine Protein Negative (Neg-Trace) mg/dL Urine Glucose (UA) Negative (Negative) mg/dL Urine Ketones Negative (Negative) mg/dL Urine Blood Trace H (Negative) Urine Nitrite Negative (Negative) Ur Leukocyte Esterase Moderate (2+) H (Negative) Urine RBC 0-2 (0-2) /HPF Urine WBC 21-50 H (0-5) /HPF Ur Squamous Epith Cells 11-20 (0-2) /HPF Urine Bacteria 1+ (None Seen) Hyaline Casts 0-2 (0-2) /LPF Urine Test NEGATIVE (NEGATIVE) Blood Type O Negative Antibody Screen NEGATIVE Radiology Impression Discussion of test interpretation with radiology: I have reviewed the radiologist's reading. External Record Review External record reviewed: Inpatient record, Office record, Outpatient record, Prior outpatient labs, Prior outpatient radiology, Primary care record and Outside ED record Medications Administered Generic Name Dose Route Start Last Admin Trade Name Freq PRN Reason Stop Dose Admin Sodium Chloride 1,000 mls @ 100 mls/hr 02/21/24 14:15 02/21/24 14:17 Ns IVCONT 100 mls/hr .Q10H TIMOTEO Administration Discontinued Medications Generic Name Dose Route Start Last Admin Trade Name Freq PRN Reason Stop Dose Admin Sodium Chloride 1,000 mls @ 999 mls/hr 02/21/24 12:11 02/21/24 14:22 Ns IV 02/21/24 13:11 Infused .Q1H1M ONE Infusion Ceftriaxone Sodium 1 gm/ 50 mls @ 100 mls/hr 02/21/24 12:12 02/21/24 14:22 Sodium Chloride IV 02/21/24 12:41 Infused ONCE ONE Infusion Metronidazole 500 mg in 100 mls @ 100 mls/hr 02/21/24 12:12 02/21/24 15:22 Flagyl IV 02/21/24 13:11 Infused ONCE ONE Infusion Iohexol 100 ml 02/21/24 10:42 02/21/24 10:42 Iohexol 350 Mg/Ml 100 Ml Infus..Btl IV 02/21/24 10:43 85 ml ONCE ONE Administration Morphine Sulfate 4 mg 02/21/24 12:00 02/21/24 12:09 Morphine Sulfate 4 Mg/Ml Cartridge IVPUSH 02/21/24 12:01 4 mg ONCE ONE Administration Protocol Critical Care Time Critical Care Time Critical Care Time: Yes Total Critical Care Time: 35 Attestation: I have personally provided critical care time exclusive of time spent on separately billable procedures. Time includes review of lab data, radiology results, discussion with consultants, and monitoring for potential decompensation. Intervention performed as documented. Discharge Plan Discharge Clinical Impression: Acute appendicitis Patient Disposition: Admitted As Inpatient Interventions: Admission Worksheet (ED) Last Done: 02/21/24 16:19
[2024-02-21] MEDS: iohexoL 350 MG/ML 100 ML INFUS..BTL IV (10:42)
[2024-02-21] MEDS: Morphine Sulfate 4 MG/ML CARTRIDGE IVPUSH (12:09)
--- NOTE | 2024-02-21 12:18 | PC.NURSE ---
pt medicated for pain per order
[2024-02-21] MEDS: 0.9 % Sodium Chloride 1,000 ML 999 ML IV (12:21)
[2024-02-21 12:42] LABS: Lactic Acid 0.8 mmol/L (0.5-2.0)
[2024-02-21] MEDS: cefTRIAXone sodium 1 GM in 0.9 % Sodium Chloride 50 ML IV (13:07)
--- NOTE | 2024-02-21 14:00 | PM.HPGS ---
History of Present Illness History of Present Illness Date of Service: 02/21/24 Chief complaint: abd pain Narrative: Paris Saldana is a 29 year old female who has started having abdominal pain isolating down to the right lower quadrant early this morning and since it was not improving she came into the hospital. Here she was noted to have an elevated white count a CT scan of her abdomen and pelvis was remarkable for probable early appendicitis with inflammatory changes around the distended appendix. She has never had any issues like this before. She did have a femoral hernia repair at [facility] many years ago Review of Systems Review of Systems: Yes all other systems are reviewed and are negative FORMERLY [facility] Past Medical History Medical History Migraine Depression Asthma Surgical History Surgical History History of esophagogastroduodenoscopy (EGD) H/O colonoscopy Hx of hernia repair Social History Social History Patient Tobacco Use Status: Never used Tobacco Advance Directives: No Advance Directives Information Provided: Yes Meds Allergies Allergy/AdvReac Type Severity Reaction Status Date / Time penicillin V Allergy Mild Rash Verified 02/21/24 08:20 Home Medications ?Medication ?Instructions ?Recorded ?Confirmed ?Last Taken ?Type buspirone 5 mg tablet 5 mg PO TID 09/15/23 01/19/24 Unknown History sumatriptan succinate 25 mg tablet PO 09/15/23 01/19/24 Unknown History Physical Exam Vital Signs: Vital Signs: Last Vital Signs Temp 98.6 F 02/21/24 10:35 Pulse 85 02/21/24 10:35 Resp 12 02/21/24 10:35 BP 103/62 02/21/24 10:35 Pulse Ox 100 02/21/24 10:35 O2 Del Method Room Air 02/21/24 10:35 BMI result Body Mass Index 36.0 Const: General: cooperative, healthy appearing, comfortable and no acute distress Orientation/consciousness: patient oriented x3 HEENT: Head: Yes normal to inspection Resp: Effort & Inspection: normal respiratory effort Auscultation: clear to auscultation bilaterally Cardio: Rate: regular rate Rhythm: regular rhythm GI: Other: Abdomen is soft nondistended she is tender in the mid abdomen to the right lower quadrant most location is in the right lower quadrant mild guarding no rebound no peritoneal signs Skin: Other: Nonicteric Neuro: General: patient oriented x3 Extrem: General: Yes normal to inspection Psych: Appearance: grossly normal Mental Status: mental status grossly normal Speech and movement: Normal speech and movement present Affect: normal affect Attitude: cooperative Thought process: Normal thought process present Thought content: Normal thought content present Insight: Good insight present (Psych) Judgement: Good judgement present (Psych) Results Results Labs: Short CBC 02/21/24 Range/Units 08:28 WBC 15.7 H (4.8-10.8) X10*3/uL Hgb 12.8 (12.0-16.0) g/dl Hct 38.9 (37.0-47.0) % Plt Count 241 (160-400) X10*3/uL BMP 02/21/24 08:28 Sodium 142 Potassium 4.2 Chloride 108 Carbon Dioxide 25 BUN 14 Creatinine 0.78 Calcium 9.1 Liver Function 02/21/24 Range/Units 08:28 Total Bilirubin 0.6 (0.0-1.0) mg/dL Direct Bilirubin 0.1 (0.0-0.5) mg/dL AST 27 (5-31) U/L ALT 32 H (0-31) U/L Alkaline Phosphatase 90 (39-117) U/L Albumin 4.1 (3.5-5.0) g/dL Urine 02/21/24 Range/Units 08:33 Urine Color Yellow Urine Appearance Cloudy Urine pH 6.5 (5.0-9.0) Ur Specific [place] 1.020 (1.005-1.025) Urine Protein Negative (Neg-Trace) mg/dL Urine Glucose (UA) Negative (Negative) mg/dL Urine Test NEGATIVE (NEGATIVE) Abdomen CT scan report/results: report reviewed and image reviewed CT scan - pelvis: report reviewed and image reviewed Additional studies: [address] [address] [address] Scan Report Signed Patient: Paris Saldana MR#: [id number] : 1995 Acct:[id number] Age/Sex: 29 / F ADM Date: 02/21/24 Loc: HO.ED Attending Dr: Ordering Physician: Talia Key Date of Service: 02/21/24 Procedure(s): CT abdomen pelvis w IV con Accession Number(s): [id number] cc: Amaya Langford MD; Talia Key~ EXAMINATION: CT ABDOMEN AND PELVIS WITH CONTRAST CLINICAL INFORMATION: Right lower quadrant pain COMPARISON: Abdominal MRI October 28, 2023 and abdominal ultrasound October 04, 2023 TECHNIQUE: Multidetector volumetric images were obtained from the superior aspect of the liver through the pubic symphysis following administration 85 mL of Omnipaque 350 intravenous contrast. Sagittal and coronal reformatted images were obtained on the technologist's workstation. Oral contrast: No This CT examination was performed using dose optimization techniques as appropriate, variously including the following: *Automated exposure control *Adjustment of mA and/or kV according to patient size (this includes techniques or standardized protocols for targeted exams where dose is matched to indication/reason for exam; i.e. extremities or head) *Use of iterative reconstruction technique DLP: 690 mGy-cm FINDINGS: Visualized lung bases demonstrate mild dependent atelectasis. The liver is mildly enlarged and demonstrates diffusely decreased attenuation. The gallbladder is normal in appearance. The pancreas, spleen and adrenal glands are unremarkable. Symmetrically enhancing kidneys without hydronephrosis. Normal caliber loops of small and large bowel. Mild colonic stool burden. The appendix is dilated measuring up to 1.1 cm. There is periappendiceal fat stranding present. No complicating periappendiceal abscess. Normal caliber abdominal aorta. No retroperitoneal lymphadenopathy. Tiny fat-containing umbilical hernia. The bladder is normal in appearance. Unremarkable CT appearance of the uterus. Trace amount of free pelvic fluid, often times physiologic. No inguinal lymphadenopathy. No acute osseous abnormality. CT/CT abdomen pelvis w IV con IMPRESSION: CT findings most consistent with acute appendicitis. No complicating abscess. This Critical Result was discussed with Talia Key at 11:47 AM on February 21, 2024 and it was ascertained that the content and urgency of the report was understood at the time of direct communication. 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 We discussed treating this with antibiotics versus laparoscopic appendectomy and I think her risks are low for any surgery. She would do well with laparoscopic appendectomy and she agrees with this would like to proceed. Risks and benefits were discussed with the patient including but not limited to bleeding infection bowel injury possible need for open procedure possible abscess and despite this she wishes to proceed. We will admit her NPO IV fluids IV pain medication and go to the OR the end of the day Quality Stroke Does the patient have a stroke diagnosis?: No VTE Prior VTE?: No VTE Risk Level:: Surgical - low VTE Device Contraindication: N/A - Device Ordered VTE Drug Contraindication: Treatment Not Indicated Procedures Date of Service Date of Service: 02/21/24
[2024-02-21] MEDS: 0.9 % Sodium Chloride 1,000 ML 100 ML IVCONT ×2 (14:17→21:42)
[2024-02-21] MEDS: metroNIDAZOLE/NS 500 MG/100 ML PIGGYBACK 100 MG IV (14:17)
--- NOTE | 2024-02-21 14:22 | PHA.MEDREC ---
Pharmacy Consult ? Medication Reconciliation Pharmacy has completed the medication reconciliation. Spoke to patient and confirmed medication list. Patient said she hasn't had any medication in about a week.
--- NOTE | 2024-02-21 16:19 | PC.NURSE ---
report given to NEHEMIAH Tang in PACU
--- NOTE | 2024-02-21 16:32 | PC.NURSE ---
pt transported to OR by Sagar, OR tech via OR stretcher
--- NOTE | 2024-02-21 17:30 | P.CONAN_ITS ---
[facility] Active Problems Active Problems: All Active Problems Acute appendicitis (Acute) Leg skin lesion, right (Acute) Heel lesion (Acute) Dizziness (Acute) Tachycardia (Acute) Chronic constipation (Acute) Cellulitis (Acute) Malnutrition (Acute) Biliary sludge (Acute) Biliary colic (Acute) RUQ pain (Acute) Spine pain (Acute) Migraine (Acute) Epigastric abdominal pain (Acute) Upper respiratory tract infection (Acute) Past Medical History Medical History Migraine Depression Asthma Family History Family history of problems with anesthesia: No Surgical History Surgical History History of esophagogastroduodenoscopy (EGD) H/O colonoscopy Hx of hernia repair History of Problems with Anesthesia: No Social History Social History Patient Tobacco Use Status: Never used Tobacco Advance Directives: No Advance Directives Information Provided: Yes Meds Allergies Allergy/AdvReac Type Severity Reaction Status Date / Time penicillin V Allergy Mild Rash Verified 02/21/24 08:20 Active Medications: Current Medications Sodium Chloride (Ns) 1,000 mls @ 100 mls/hr IVCONT .Q10H [facility] Last Admin: 02/21/24 14:17 Dose: 100 mls/hr Home Medications ?Medication ?Instructions ?Recorded ?Confirmed ?Last Taken ?Type buspirone 5 mg tablet 5 mg PO TID 09/15/23 02/21/24 02/14/24 History sumatriptan succinate 25 mg tablet 25 mg PO DAILY PRN Migraine 09/15/23 02/21/24 Unknown History Headache Exam Height,Weight and Vital Signs: Height 5 ft 4 in Weight 95.254 kg Last Vital Signs Temp 98.6 F 02/21/24 10:35 Pulse 85 02/21/24 10:35 Resp 12 02/21/24 10:35 BP 103/62 02/21/24 10:35 Pulse Ox 100 02/21/24 10:35 O2 Del Method Room Air 02/21/24 10:35 Pertinent Lab Results Pertinent Lab Results: Laboratory Tests 02/21/24 02/21/24 02/21/24 08:28 08:33 12:15 WBC 15.7 H RBC 4.34 Hgb 12.8 Hct 38.9 MCV 89.6 MCH 29.5 MCHC 32.9 RDW 13.2 Plt Count 241 MPV 10.0 Immature Gran % (Auto) 0.6 H Neut % (Auto) 79.9 H Lymph % (Auto) 14.7 L [place] % (Auto) 3.4 Eos % (Auto) 1.2 Baso % (Auto) 0.2 Lymph # (Auto) 2.3 [place] # (Auto) 0.5 Eos # (Auto) 0.2 Baso # (Auto) 0.0 Abs Immat Gran (auto) 0.09 H Absolute Neuts (auto) 12.5 H Absolute Nucleated RBC 0.000 Nucleated RBC % (auto) 0.0 Sodium 142 Potassium 4.2 Chloride 108 Carbon Dioxide 25 Anion Gap 13 BUN 14 Creatinine 0.78 Estim Creat Clear Calc 119.1 Estimated GFR > 60 Random Glucose 94 Lactic Acid 0.8 Calcium 9.1 Total Bilirubin 0.6 Direct Bilirubin 0.1 AST 27 ALT 32 H Alkaline Phosphatase 90 Total Protein 7.1 Albumin 4.1 Lipase 16 Urine Color Yellow Urine Appearance Cloudy Urine pH 6.5 Ur Specific [place] 1.020 Urine Protein Negative Urine Glucose (UA) Negative Urine Ketones Negative Urine Blood Trace H Urine Nitrite Negative Ur Leukocyte Esterase Moderate (2+) H Urine RBC 0-2 Urine WBC 21-50 H Ur Squamous Epith Cells 11-20 Urine Bacteria 1+ Hyaline Casts 0-2 Urine Test NEGATIVE Blood Type O Negative Antibody Screen NEGATIVE Airway Mallampati Class: II TM Dist: >3cm Neck ROM: Full Assessment and Plan Assessment Anesthesia Assessment: Anesthesia Plan Discussed Final Anesthetic Review Family History of Problems with Anesthesia: No History of Problems with Anesthesia: No NPO: Yes ASA Class: II and Emergency Final Preanesthetic Review: No Changes in Pt Med Stat, Meds/Allgs Chart Reviewed, Consent Obtained/Reviewed and Anes Risks/Benef Reviewed Patient Risk: Low Procedure Risk: Intermediate Anesthetic Plan Anesthetic Plan: GA Disposition: Standard PACU
--- NOTE | 2024-02-21 19:12 | P.OP_ITS ---
Operative Note Operative Note Date of Service: 02/21/24 Narrative: Preop diagnosis--acute appendicitis Postop diagnosis--acute appendicitis Procedure--laparoscopic appendectomy Surgeon--Jameejoanne Anesthesia--general endotracheal tube anesthesia Patient is a 29-year-old female who presented with a 14 hour history of right lower quadrant pain elevated white count [address] scan showing changes consistent with acute appendicitis. As a result she comes in now to undergo laparoscopic appendectomy. She understands and agrees with the plan Findings--acutely inflamed appendix and some murky fluid in the pelvis Procedure-- Patient was brought to the operative room and under Anesthesia guidance was intubated please see anesthesia records for details. Her abdomen was prepped and draped in standard surgical fashion. An infraumbilical incision was created after numbing up the area with a 0.25% Marcaine with epinephrine. Dissection was carried down to the anterior abdominal wall fascia which was grasped with Markel's and transected. 0 Vicryl pursestring suture was placed. Woodson trocar introduced and pneumoperitoneum established to 15 mmHg pressure. Patient was then positioned left side down into 5 mm ports were then placed under direct visualization 1 in the suprapubic area 1 in the left lower quadrant area also using local. The appendix was identified in the right lower quadrant and looked inflamed and rigid. The base of the appendix was dissected out with the M aryland and then the Endo-JERSON 45 load was used to come across the appendix base near the cecum. The LigaSure was then used to come across the mesentery of the appendix and there was a little bleeding that occurred near the appendiceal artery and this was stopped with the LigaSure. The small bowel was run a little bit and determined to be normal. The right ovary was identified and the fallopian tube and it looks normal too. Little suctioned and irrigation was carried out to remove the murky fluid in the right lower quadrant area. The appendix was placed in the Endo-Catch bag and removed out of the abdomen and sent off for pathology. The infraumbilical ports were then removed and the pursestring approximated and more local was used at the infraumbilical area. 4- 0 Monocryl in interrupted subcuticular fashion was used to approximate the skin edges and Steri-Strips and dry dressings placed with Tegaderm. At the end of the case all sponge instrument needle counts were correct estimated blood loss was about 10 cc. Specimens sent was the appendix. The patient was extubated returned stable to recovery room.
[2024-02-21] MEDS: fentaNYL citrate/PF 100 MCG/2 ML VIAL 50 MCG IVPUSH ×2 (19:16→19:23)
[2024-02-21] MEDS: Docusate Sodium 100 MG CAPSULE PO (21:38)
[2024-02-22] MEDS: Ketorolac Tromethamine 15 MG/ML VIAL IVPUSH ×3 (00:30→12:37)
[2024-02-22 03:40] VITALS: BP 94/52; PULSE 85; RESP 20; TEMP 36.2; O2SAT 96
[2024-02-22] MEDS: 0.9 % Sodium Chloride 1,000 ML 100 ML IVCONT (05:55)
[2024-02-22 07:12] LABS: MANUAL DIFF FLAG NO
[2024-02-22 07:14] LABS: Basophils Percent Auto 0.1 % (0-2); Hematocrit 34.1 % (37.0-47.0); Hemoglobin 11.3 g/dl (12.0-16.0); Imm Gran Pct Auto 0.6 % (0.0-0.4); Lymphocytes Absolute Auto 1.3 X10*3/uL (1.2-4.9); Lymphocytes Percent Auto 8.1 % (20-40); Mean Corpuscular HGB Conc 33.1 g/dl (31.0-35.0); Mean Corpuscular Hemoglobin 29.4 pg (27.0-33.0); Mean Corpuscular Volume 88.6 fL (80.0-98.0); Mean Platelet Volume 10.3 fL (9.4-12.3); Monocytes Absolute Auto 0.5 X10*3/uL (0.1-1.2); Monocytes Percent Auto 3.2 % (2-11); Neutrophils Absolute Auto 13.9 x10*3/uL (2.0-8.3); Platelet Count 216 X10*3/uL (160-400); Red Blood Count 3.85 X10*6/uL (4.20-5.50); Red Cell Distribution Width 13.2 % (11.0-16.0); White Blood Count 15.8 X10*3/uL (4.8-10.8)
[2024-02-22 07:32] VITALS: BP 97/58; PULSE 75; RESP 18; TEMP 36.3; O2SAT 98
--- NOTE | 2024-02-22 08:03 | P.PNGS_ITS ---
Subjective Subjective Date of Service: 02/22/24 <Nirmala Bajwa PA-C - Last Filed: 02/22/24 08:05> 02/22/24 <Jay Mlilard MD - Last Filed: 02/22/24 08:53> Interval history: Feels well this morning, tolerating diet, pain well controlled. OOB and ambulating without difficulty. <Nirmala Bajwa PA-C - Last Filed: 02/22/24 08:05> Physical Exam 2 Vital Signs: Vital Signs: Last Vital Signs Temp 97.3 F 02/22/24 07:32 Pulse 75 02/22/24 07:32 Resp 18 02/22/24 07:32 BP 97/58 L 02/22/24 07:32 Pulse Ox 98 02/22/24 07:32 O2 Del Method Room Air 02/22/24 07:32 O2 Flow Rate 2 02/21/24 19:37 BMI result Body Mass Index 36.1 <LIZZY Denise Last Filed: 02/22/24 08:05> Const: General: comfortable, no acute distress and alert <Nirmala Bajwa PA-C - Last Filed: 02/22/24 08:05> Orientation/consciousness: patient oriented x3 <LIZZY Denise Last Filed: 02/22/24 08:05> Resp: Effort & Inspection: normal respiratory effort <Nirmala Bajwa PA-C - Last Filed: 02/22/24 08:05> GI: Inspection: No distended and Yes incision (dressings c/d/i) <Nirmala Bajwa PA-C - Last Filed: 02/22/24 08:05> Palpation (GI): Soft to palpation, Tenderness to palpation present (GI) (mild incisional) and no guarding <LIZZY Denise Last Filed: 02/22/24 08:05> Percussion: Yes normal to percussion <LIZZY Denise Last Filed: 02/22/24 08:05> Skin: General skin exam: no rashes or lesions noted <LIZZY Denise Last Filed: 02/22/24 08:05> Neuro: General: patient oriented x3 <Nirmala Bajwa PA-C - Last Filed: 02/22/24 08:05> Objective Data Active Medications Acetaminophen (Acetaminophen 325 Mg Tablet) 650 mg PO Q6H PRN PRN Reason: Pain, Mild (Pain Scale 1-3), fever or headache Docusate Sodium (Docusate Sodium 100 Mg Capsule) 100 mg PO BID [facility] Last Admin: 02/21/24 21:38 Dose: 100 mg Documented By: SRUTHI Sodium Chloride (Ns) 1,000 mls @ 100 mls/hr IVCONT .Q10H [facility] Last Admin: 02/22/24 05:55 Dose: 100 mls/hr Documented By: SRUTHI Ceftriaxone Sodium 1 gm/ (Sodium Chloride) 50 mls @ 100 mls/hr IV ONCE ONE Stop: 02/22/24 09:29 Ketorolac Tromethamine (Ketorolac Tromethamine 15 Mg/Ml Vial) 15 mg IVPUSH Q6H [facility] Stop: 02/26/24 00:00 Last Admin: 02/22/24 05:53 Dose: 15 mg Documented By: SRUTHI Melatonin (Melatonin 3 Mg Tablet) 6 mg PO BEDTIME PRN PRN Reason: Insomnia Ondansetron HCl (Ondansetron Hcl 4 Mg/2 Ml Vial) 4 mg IVPUSH Q8H PRN PRN Reason: Nausea and Vomiting Oxycodone HCl (Oxycodone Hcl Immed Release 5 Mg Tablet) 5 mg PO Q4H PRN PRN Reason: Pain, Severe (Pain Scale 7-10) Oxycodone HCl (Oxycodone Hcl Immed Release 5 Mg Tablet) 10 mg PO Q4H PRN PRN Reason: Pain, Severe (Pain Scale 7-10) Sodium Chloride (0.9 % Sodium Chloride Flush 3 Ml Syringe) 3 ml IVFLUSH QSHIFT [facility] Last Admin: 02/22/24 00:33 Dose: Not Given Documented By: SRUTHI Non-Admin Reason: IV Running Sumatriptan Succinate (Sumatriptan Succinate 25 Mg Tablet) 25 mg PO DAILY PRN PRN Reason: Migraine Headache <Nirmala Bajwa PA-C - Last Filed: 02/22/24 08:05> Labs CBC & Chem 7: 02/22/24 06:58 08/13/24 08:28 <Nirmala Bajwa PA-C - Last Filed: 02/22/24 08:05> Labs: Laboratory Results - last 24 hr 02/21/24 02/21/24 02/21/24 08:28 08:33 12:15 MCV 89.6 MCH 29.5 MCHC 32.9 RDW 13.2 Plt Count 241 MPV 10.0 Immature Gran % (Auto) 0.6 H Neut % (Auto) 79.9 H Lymph % (Auto) 14.7 L [place] % (Auto) 3.4 Eos % (Auto) 1.2 Baso % (Auto) 0.2 Lymph # (Auto) 2.3 [place] # (Auto) 0.5 Eos # (Auto) 0.2 Baso # (Auto) 0.0 Abs Immat Gran (auto) 0.09 H Absolute Neuts (auto) 12.5 H Absolute Nucleated RBC 0.000 Nucleated RBC % (auto) 0.0 Anion Gap 13 Estim Creat Clear Calc 119.1 Estimated GFR > 60 Random Glucose 94 Lactic Acid 0.8 Calcium 9.1 Total Bilirubin 0.6 Direct Bilirubin 0.1 AST 27 ALT 32 H Alkaline Phosphatase 90 Total Protein 7.1 Albumin 4.1 Lipase 16 Urine Color Yellow Urine Appearance Cloudy Urine pH 6.5 Ur Specific [place] 1.020 Urine Protein Negative Urine Glucose (UA) Negative Urine Ketones Negative Urine Blood Trace H Urine Nitrite Negative Ur Leukocyte Esterase Moderate (2+) H Urine RBC 0-2 Urine WBC 21-50 H Ur Squamous Epith Cells 11-20 Urine Bacteria 1+ Hyaline Casts 0-2 Urine Test NEGATIVE Blood Type O Negative Antibody Screen NEGATIVE 02/22/24 06:58 MCV 88.6 MCH 29.4 MCHC 33.1 RDW 13.2 Plt Count 216 MPV 10.3 Immature Gran % (Auto) 0.6 H Neut % (Auto) 88.0 H Lymph % (Auto) 8.1 L [place] % (Auto) 3.2 Eos % (Auto) 0.0 Baso % (Auto) 0.1 Lymph # (Auto) 1.3 [place] # (Auto) 0.5 Eos # (Auto) 0.0 Baso # (Auto) 0.0 Abs Immat Gran (auto) 0.10 H Absolute Neuts (auto) 13.9 H Absolute Nucleated RBC 0.000 Nucleated RBC % (auto) 0.0 Anion Gap Estim Creat Clear Calc Estimated GFR Random Glucose Lactic Acid Calcium Total Bilirubin Direct Bilirubin AST ALT Alkaline Phosphatase Total Protein Albumin Lipase Urine Color Urine Appearance Urine pH Ur Specific [place] Urine Protein Urine Glucose (UA) Urine Ketones Urine Blood Urine Nitrite Ur Leukocyte Esterase Urine RBC Urine WBC Ur Squamous Epith Cells Urine Bacteria Hyaline Casts Urine Test Blood Type Antibody Screen <Nirmala Bajwa PA-C - Last Filed: 02/22/24 08:05> Procedures Date of Service Date of Service: 02/22/24 <Nirmala Bajwa PA-C - Last Filed: 02/22/24 08:05> 02/22/24 <Jay Millard MD - Last Filed: 02/22/24 08:53> Progress Note: A&P Assessment and plan (1) Acute appendicitis: Status: Acute <Nirmala Bajwa PA-C - Last Filed: 02/22/24 08:05> Assessment and Plan: Looks well Good pain control Tolerating diet Abdomen soft She says she is ready to be discharged Instructions given to patient Seen and examined independently <Jay Millard MD - Last Filed: 02/22/24 08:53> (2) S/P laparoscopic appendectomy: Status: Acute <Nirmala Bajwa PA-C - Last Filed: 02/22/24 08:05> Assessment and Plan: POD #1 s/p lap appy. Doing well post op. VSS, abd exam benign with appropriate post op tenderness and clean/intact dressings. Dc to home today, f/u in office in 2 weeks. Patient comfortable with plan. <Nirmala Bajwa PA-C - Last Filed: 02/22/24 08:05> Time Spent With Patient Time: Total time managing care of this patient today ____ minutes. <Nirmala Bajwa PA-C - Last Filed: 02/22/24 08:05> Quality Stroke Does the patient have a stroke diagnosis?: No <LIZZY Denise Last Filed: 02/22/24 08:05> VTE Prior VTE?: No <Nirmala Bajwa PA-C - Last Filed: 02/22/24 08:05> VTE Risk Level:: Surgical - low <Nirmala Bajwa PA-C - Last Filed: 02/22/24 08:05> VTE Device Contraindication: N/A - Device Ordered <Nirmala Bajwa PA-C - Last Filed: 02/22/24 08:05> VTE Drug Contraindication: Treatment Not Indicated <Nirmala Bajwa PA-C - Last Filed: 02/22/24 08:05>
--- NOTE | 2024-02-22 08:23 | MHC.CM.PN ---
pt has been medically cleared for DC, she will go home via private transport, plan is: self care.
[2024-02-22] MEDS: cefTRIAXone sodium 1 GM in 0.9 % Sodium Chloride 50 ML IV (08:52)
[2024-02-22] MEDS: 0.9 % Sodium Chloride Flush 3 ML SYRINGE IVFLUSH (08:52)
[2024-02-22] MEDS: Docusate Sodium 100 MG CAPSULE PO (08:52)
--- NOTE | 2024-02-22 09:10 | PM.DS ---
DS: Providers Provider Date of Service: 02/22/24 Date of admission: 02/21/24 13:04 Date of discharge: 02/22/24 Primary care physician: Amaya Langford MD Attending physician on admission: Araceli Lobo Attending physician on discharge: Jay Millard DS: Diagnosis Discharge Diagnosis (1) Acute appendicitis: Status: Acute (2) S/P laparoscopic appendectomy: Status: Acute DS: Summary Hospital Course Hospital Course: HPI AT ADMISSION: Paris Saldana is a 29 year old female who has started having abdominal pain isolating down to the right lower quadrant early this morning and since it was not improving she came into the hospital. Here she was noted to have an elevated white count a CT scan of her abdomen and pelvis was remarkable for probable early appendicitis with inflammatory changes around the distended appendix. She has never had any issues like this before. She did have a femoral hernia repair at [facility] many years ago. HOSPITAL COURSE: The patient was admitted to the surgical service for further treatment of the acute appendicitis. She elected to proceed with laparoscopic appendectomy. She was added onto the OR schedule for that day. On 02/21/24, a laparoscopic appendectomy was performed by Dr. Lobo without complication. The patient tolerated the procedure well. She had an uncomplicated recovery course. On POD #1, she felt well and was tolerating a solid diet without nausea or vomiting, had good pain control and was ambulating without difficulty. She was hemodynamically stable. Her abdomen was benign with appropriate post op tenderness and clean and intact dressings. She felt ready for discharge. She was discharged to home on 02/22/24 in stable condition. She is to follow up in the office in 2 weeks. Status at Discharge Functional status at discharge: independent ambulation Overall status at discharge: patient is progressing back to baseline Time Attestation Discharge Coordination Time (in mins): 30 Quality: Safe Use of Opioids Does Pt have an Active Cancer Diagnosis on the Problem List?: No Quality: Stroke Does the patient have a stroke diagnosis?: No Physical Exam Vital Signs: Vital Signs: Last Vital Signs Temp 98.2 F 02/22/24 12:00 Pulse 95 02/22/24 12:00 Resp 18 02/22/24 12:00 BP 95/54 L 02/22/24 12:00 Pulse Ox 98 02/22/24 12:00 O2 Del Method Room Air 02/22/24 12:00 O2 Flow Rate 2 02/21/24 19:37 BMI result Body Mass Index 36.1 Const: General: comfortable, no acute distress and alert Orientation/consciousness: patient oriented x3 Resp: Effort & Inspection: normal respiratory effort GI: Inspection: No distended and Yes incision (dressings c/d/i) Palpation (GI): Soft to palpation, Tenderness to palpation present (GI) (mild incisional) and no guarding Skin: General skin exam: no rashes or lesions noted Neuro: General: patient oriented x3 and moves all extremities DS: Data Data Completed and Pending Completed studies during hospitalization [Text1]: 02/21/24 18:33 Surgical [PTH] Routine Appendix, appendectomy: Acute appendicitis, extending to the proximal margin Procedures Resection of Appendix, Percutaneous Endoscopic Approach (02/21/24) Discharge Plan Discharge Anticipated Discharge Date/Time: 02/22/24 08:06 Patient Disposition: Home, Self-Care Discharge Diagnosis: acute appendicitis s/p laparoscopic appendectomy Referrals: Amaya Langford MD [Primary Care Provider] - 1 Week Discharge Medications: New oxycodone 5 mg tablet 5 mg PO Q4H PRN (Reason: pain (scale score 7-10)) Qty: 24 0RF Rx Instructions: Partial Fill upon patient request. docusate sodium [Colace] 100 mg capsule 100 mg PO BID Qty: 30 0RF Continued bupropion HCl [Wellbutrin SR] 100 mg tablet sustained-release 12 hr 100 mg PO BEDTIME Qty: 7 0RF nortriptyline 10 mg capsule 10 mg PO BEDTIME Qty: 90 1RF zinc sulfate 50 mg zinc (220 mg) capsule 50 mg PO DAILY Qty: 90 2RF thiamine HCl (vitamin B1) 100 mg tablet 100 mg PO DAILY Qty: 90 3RF cholecalciferol (vitamin D3) 50 mcg (2,000 unit) capsule 50 mcg PO DAILY Qty: 90 3RF vitamin A palmitate 3,000 mcg (10,000 unit) tablet 3,000 mcg PO DAILY Qty: 90 3RF linaclotide 72 mcg capsule 72 mcg PO DAILY Qty: 30 3RF esomeprazole magnesium 20 mg capsule,delayed release(DR/EC) 20 mg PO DAILY Qty: 30 3RF ondansetron 4 mg tablet,disintegrating 4 mg PO Q8H PRN (Reason: nausea and vomiting) Qty: 30 0RF buspirone 5 mg tablet 5 mg PO TID sumatriptan succinate 25 mg tablet 25 mg PO DAILY PRN (Reason: Migraine Headache) Discharge Orders: Discharge Order (Routine); Ordered 02/22/24 Ordered By: Nirmala Bajwa Diet: Advance to usual diet Activity on Discharge: No heavy lifting Stand Alone Forms: Patient Portal Discharge page Print Language: Nepalese Activity Restrictions/Additional Instructions: If the incision area is tender, you may apply an ice pack for short intervals (No more than 20 minutes on, followed by at least 20 minutes off). Do not apply heat. Do not use creams, lotions, or topical antibiotics. Ok to shower. Remove clear dressings 3 days following your procedure. You have steri strips (small white cloth strips) covering your incision- these will fall off ~1 week. No heavy lifting (>10lbs) or strenuous activity! Take Tylenol Extra-strength 1-2 tabs every 6 hours for the first day, then as needed. Oxycodone every 6-8 hours as needed for pain. Colace 100 mg every day as needed for constipation. Follow up in office with Dr. Millard in 2 weeks. ([phone]) Call Your Doctor If: -Your temperature exceeds 101.5? F -You experience excessive pain or swelling -You have an unexpected reaction to medication -You have excessive bleeding -You experience continued vomiting/nausea -Your incision begins to separate -Your incision shows signs of infection such as increased redness, swelling, excessive pain, drainage (light blood or clear fluid is normal) or heat Care Plan Goals: Return to baseline health and resume normal activities following recovery period. Health Concerns: acute appendicitis Plan of Treatment: s/p laparoscopic appendectomy f/u in office in 2 weeks Assessment: doing well post op. Discharge Date/Time: 02/22/24 13:48
--- NOTE | 2024-02-22 10:09 | HO.POSTANES ---
Post Anesthesia Evaluation Post Anesthesia Evaluation Date of Service: 02/21/24 Vital Signs: Vital Signs Temp Pulse Resp BP Pulse Ox O2 Del Method 02/22/24 07:32 97.3 F 75 18 97/58 L 98 Room Air 02/22/24 03:40 97.1 F 85 20 94/52 L 96 Room Air 02/21/24 23:46 97.1 F 90 20 106/52 L 97 Room Air Anesthesia: General Mental Status: Awake Pain Control: Satisfactory Nausea/Vomiting: None Hydration: Adequate Anesthesia-Related Issues: No Anes. Related Issues
[2024-02-22 12:00] VITALS: BP 95/54; PULSE 95; RESP 18; TEMP 36.8; O2SAT 98
== END 2024-02-22 13:48 | disposition home or self-care (01) | DRG 234 ==
LOC: HO.ED 12:23 → HO.EDOVER 13:27 → HO.S3 19:38
PROVIDERS: Physician Assistant Medical; Admitting Provider Surgery; Emergency Provider Emergency Medicine; PCP Internal Medicine; Visit Provider Surgery
PROC: 0DTJ4ZZ Resection of Appendix, Percutaneous Endoscopic Approach (ICD-10-PCS; CPT 44970; principal; 2024-02-21 17:30)
DX: K35.80 Unspecified acute appendicitis (principal); J45.909 Unspecified asthma, uncomplicated; Z79.899 Other long term (current) drug therapy
CPT/HCPCS: 36415; 74177; 80048; 80076; 81001; 81025; 83605; 83690; 85025; 86850; 86900; 86901; 87040; 87086; 87147; 88304; 99285; J0696; J1100; J1836; J1885; J2250; J2270; J2405; J2704; J3010; Q9967

== ENCOUNTER → 2024-02-21 13:04 | Outpatient (BNV) | payer OTHER, SELFPAY | PROVIDERS: Admitting Provider Surgery; Emergency Provider Emergency Medicine; PCP Internal Medicine; Visit Provider Surgery | DX: K35.80 Unspecified acute appendicitis (principal); Z90.49 Acquired absence of other specified parts of digestive tract | CPT/HCPCS: 44970; 99024; 99222 ==

== ENCOUNTER 2024-03-01 11:34 | Outpatient (AMB) | payer OTHER, SELFPAY ==
--- NOTE | 2024-03-01 11:34 | A.OFFVIS_ITS ---
Vital Signs 03/01/24 11:40 Height 5 ft 4 in Weight 204 lb 4 oz BMI 35.1 BP 110/71 Blood Pressure Location Lt brachial Position Sitting Pulse 78 Intake Visit Reasons: lap appy (Yamil 02/21/24) Intake Note: Patient is seen in office for post op assessment post laparoscopic appendectomy. Pt c/o: minimal pain incision above the belly button, some diarrhea, denies any other concerns surgery: 02/21/24 Dynamic Balancer Required: No Accompanied by: Mother Allergies penicillin V Allergy (Mild, Verified 03/01/24 11:40) Rash HPI Comments Details: Paris returns one week following laparoscopic appendectomy. She generally feels improved but still is tired. She is eating without nausea or vomiting. She denies any problems with her incisions PFSH Medical History Migraine Depression Asthma Surgical History History of laparoscopic appendectomy (02/21/24) History of esophagogastroduodenoscopy (EGD) H/O colonoscopy Hx of hernia repair Social History Household Members: Family Housing: House Do you presently have visiting nurse or other home services: No Patient Tobacco Use Status: Never used Tobacco e-Cigarette/Vaping Use: Never Used Second Hand Smoke Exposure: No Physical Exam Vital Signs: Last Vital Signs Pulse 78 03/01/24 11:40 BP 110/71 03/01/24 11:40 BMI result Body Mass Index 35.1 Const General: no acute distress Resp Effort & Inspection: normal respiratory effort GI Other: trochar incisions are clean, dry and intact without redness or discharge. Soft and non-distended. Inspection: Yes normal to inspection Extrem Other: no edema Assessment & Plan Assessment & Plan (1) S/P laparoscopic appendectomy: Code(s): Z90.49 - Acquired absence of other specified parts of digestive tract Category: Surgical Plan Felice returns one week follow lap appendectomy. She tolerated the procedure well and is recovering nicely. She should continue to avoid lifting > 10 pounds for the next week. She should follow up as needed. Coding Level of Care Code Global (06896) Diagnoses S/P laparoscopic appendectomy Z90.49
[2024-03-01 11:40] VITALS: BP 110/71; PULSE 78; BMI 35.1
== END 2024-03-01 12:03 | disposition home or self-care (01) ==
PROVIDERS: PCP Internal Medicine; Visit Provider Surgery
DX: Z90.49 Acquired absence of other specified parts of digestive tract (principal)
CPT/HCPCS: 99024

== ENCOUNTER → 2024-03-01 11:34 | Outpatient (BNVA) | payer OTHER, SELFPAY | PROVIDERS: PCP Internal Medicine; Visit Provider Surgery ==

== ENCOUNTER 2024-03-10 09:41 | Outpatient (REF) | payer OTHER, SELFPAY ==
[2024-03-10 12:05] LABS: Alanine Aminotransferase 20 U/L (0-31); Aspartate Amino Transferase 19 U/L (5-31); Estimated Glomerular Filt Rate > 60
== END 2024-03-10 09:42 | disposition home or self-care (01) ==
LOC: HO.LAB 09:41
PROVIDERS: Physician Assistant Medical; PCP Internal Medicine; Visit Provider Physician Assistant
DX: M54.9 Dorsalgia, unspecified (principal); R23.2 Flushing
CPT/HCPCS: 36415; 82542; 82565; 82570; 83520; 84150; 84450; 84460

== ENCOUNTER → 2024-05-09 07:49 | Outpatient (REF) | payer OTHER, SELFPAY ==
--- NOTE | ~2024-05-09 | NM_ITS ---
EXAMINATION: LA RADIONUCLIDE SOLID FOOD GASTRIC EMPTYING 4-HOUR STUDY CLINICAL INFORMATION: Early satiety. COMPARISON: None TECHNIQUE: A standard meal consisting of 4 oz of Egg Beaters brand tagged with 1000 microcuries Tc-99m Sulfur Colloid, 8 oz water and 2 slices of toast with jelly was administered orally to the patient. Images were obtained using a dual head gamma camera in the anterior and posterior projections over of the stomach immediately post ingestion and at hourly intervals up to 4 hours post ingestion. The anterior and posterior counts at each time interval were averaged using the geometric mean and expressed as percentage of the immediate post ingestion counts. FINDINGS: There is good visualization of activity in the stomach immediately post ingestion. As the study progresses, there is good clearance of activity from the stomach and visualization of progressively increasing small bowel activity. By the end of the study, there is almost no retention noted in the stomach. Retention in the stomach at each time interval was: 1 hour 70% (normal 37%-90%) 2 hours 30% (normal 30%-60%) 3 hours 13% 4 hours 4% (normal 0%-10%) LA/LA gastric emptying study IMPRESSION: Normal 4-hour solid food gastric emptying study. For solid meal, rapid gastric emptying is less than 30% at 60 minutes. Delayed gastric emptying criteria is more than 60% remaining at 120 minutes or more than 10% at 240 minutes. The 4-hour value is the best discriminator of a normal or abnormal result). Gastric emptying study grading per JNMT Consensus Recommendations in 2008 (https://tech.snmjournals.org/content/36/1/44) Grade 1 (mild retention): 11-20% at 4h Grade 2 (moderate retention): 21-35% at 4h Grade 3 (severe retention): 36-50% at 4h Grade 4 (very severe retention): >50% retention at 4h Electronically signed by: Salo Mcduffie MD 05/20/2024 01:15 PM [facility]
== END ==
LOC: HO.NUCMED 07:49
PROVIDERS: PCP Internal Medicine; Visit Provider Internal Medicine Gastroenterology
DX: R68.81 Early satiety (principal)
CPT/HCPCS: 78264; A9541

== ENCOUNTER 2024-05-14 12:16 | Outpatient (AMB) | payer OTHER, SELFPAY ==
[2024-05-14 12:51] VITALS: BP 90/70; PULSE 93
--- NOTE | 2024-05-14 12:51 | MHC.OFFVIS ---
Vital Signs 05/14/24 12:51 Height 5 ft 4 in BP 90/70 Blood Pressure Location Lt brachial Position Sitting Pulse 93 Pulse Source Pulse Oximeter Intake Visit Reasons: 4m follow up Intake Note: 4mo f/u. Pt feeling okay. Lead Customer Service Representative Required: No Accompanied by: Self / Same As Patient Allergies penicillin V Allergy (Mild, Verified 03/01/24 11:40) Rash Medication List - Last Reconciled 05/14/24 by Ge Rod MD cholecalciferol (vitamin D3) 50 mcg PO DAILY cromolyn 200 mg PO QID famotidine 20 mg PO BID levocetirizine (Xyzal) 5 mg PO BID ondansetron 4 mg PO Q8H PRN thiamine HCl (vitamin B1) 100 mg PO DAILY vitamin A palmitate 3,000 mcg PO DAILY zinc sulfate 50 mg PO DAILY HPI Comments Details: 29-year-old female here for tachycardia. She has been experiencing dizziness and lightheadedness, atypical chest pains and flushing off and on for approximately 6 months. She recalls that her heart rate has been fast previously on doctor visits and recently she noticed that her heart rate has been up even during minimal activities. She had an echocardiogram performed which showed low normal ejection fraction without any valvular pathology or pericardial disease. She also had 3 day Holter monitor where she had sinus tachycardia 84% of time. She is saying that she does not feel the palpitations but every time she checks her heart rate is fast. 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 She is taking nortriptyline because she has GI issues and migraine. She said she was given propranolol before but had some low blood pressures after that and could not tolerate it. 05/14/2024: She is here for follow-up. She has been seeing an allergies and has been diagnosed with mast cell activation syndrome. She is on cromolyn. She started taking 2 weeks ago. She is saying that she has good and bad days but on most days she was feeling fatigued and tired. Since she started taking the cromolyn over the last couple of days she has been feeling better than before. Continues to have slow and fast heart rates at time. No syncope. She has been trying to hydrate herself but has not been doing it daily. Salt intake also is less than recommended. She is going to work on that. She also has been wearing compression stockings. Overall she feels much better compared to before. [facility] Medical History Migraine Depression Asthma Surgical History History of laparoscopic appendectomy (02/21/24) History of esophagogastroduodenoscopy (EGD) H/O colonoscopy Hx of hernia repair Social History (Updated 05/14/24 @ 12:55 by Stacy Clark CMA) Household Members: Family Housing: House Do you presently have visiting nurse or other home services: No Alcohol intake: current Alcohol intake frequency: holidays/special occasions only Patient Tobacco Use Status: Never used Tobacco e-Cigarette/Vaping Use: Never Used Second Hand Smoke Exposure: No Review of Systems Const Denies chills, Denies fatigue, Denies fever(s), Denies weight gain and Denies weight loss ENT Denies dizziness Card Denies chest pain, Denies leg edema, Denies lightheadedness, Denies palpitations, Reports dyspnea on exertion, Denies orthopnea and Denies other Resp Denies cough and Reports dyspnea on exertion GI Denies hematochezia and Denies change in stool character Musc Denies abnormal gait, Denies muscle weakness, Denies numbness, Denies radiating pain into limb and Denies tingling Neuro Denies abnormal gait, Denies dizziness, Denies numbness and Denies tingling Endo Denies fatigue and Denies palpitations Physical Exam Vital Signs: Last Vital Signs Pulse 93 05/14/24 12:51 BP 90/70 05/14/24 12:51 GENERAL APPEARANCE: in no acute distress, pleasant. NECK: no carotid bruit, no jugular venous distention. SKIN: no suspicious lesions, warm and dry. HEART: no murmurs, regular rate and rhythm. LUNGS: clear to auscultation bilaterally. ABDOMEN: soft, nontender. EXTREMITIES: no edema. PERIPHERAL PULSES: equal. NEUROLOGIC: No gross deficits, AAO X 3 Assessment & Plan Assessment & Plan (1) Tachycardia: Code(s): R00.0 - Tachycardia, unspecified Category: Medical (2) Dizziness: Code(s): R42 - Dizziness and giddiness Category: Medical (3) Mast cell activation syndrome: Code(s): D89.40 - Mast cell activation, unspecified Category: Medical Plan 29 year female who is here for follow-up. She was seen for autonomic dysfunction which was initially felt to be secondary to COVID-19 infection but she has been diagnosed with mast cell activation syndrome which has an association with autonomic issues. She has done reasonably well with conservative management although she has not caught up to fluid intake and salt intake at this point. She is using compression stockings. She is eating pickles specially when she is feeling dizzy. I have advised her to make some sort of schedule and drink water and increase salt intake. Also with management of mast cell activation syndrome she may have improvement in her overall autonomic issues too. Currently I have advised her conservative strategy and she is agreeable with that. We will continue to monitor closely. She will reach out to us if there is any concerns or change in symptomatology. Follow-up with us in 1 year. Thank you for allowing me to participate in the care of your patient. Please feel free to contact me if you have any questions. Coding Level of Care Code Est Pt Level 4 (17179) Diagnoses Tachycardia R00.0 Dizziness R42 Mast cell activation syndrome D89.40
== END 2024-05-14 13:18 | disposition home or self-care (01) ==
LOC: HO.HCS 12:16
PROVIDERS: PCP Internal Medicine; Visit Provider Internal Medicine Cardiovascular Disease
DX: R00.0 Tachycardia, unspecified (principal); R42 Dizziness and giddiness; D89.40 Mast cell activation, unspecified
CPT/HCPCS: 99214

== ENCOUNTER → 2024-05-14 12:16 | Outpatient (BNVA) | payer OTHER, SELFPAY | PROVIDERS: PCP Internal Medicine; Visit Provider Internal Medicine Cardiovascular Disease ==

== ENCOUNTER 2024-05-21 07:36 | Outpatient (REF) | payer OTHER, SELFPAY ==
[2024-05-21 09:32] LABS: Ferritin 30 ng/mL (10-122); Vitamin D 25-OH Total 35.8 ng/mL (>30)
[2024-05-21 09:50] LABS: Folate 6.8 ng/mL (> or = 4.0); Vitamin B12 691 pg/mL (200-900)
[2024-05-23 18:13] LABS: Zinc 67 mcg/dL (60-130)
[2024-05-25 13:09] LABS: Vitamin C 0.4 mg/dL (0.3-2.7)
[2024-05-25 17:58] LABS: Vitamin B1 20 nmol/L (8-30)
[2024-05-25 21:07] LABS: Vitamin K1 249 pg/mL (130-1500)
[2024-05-26 15:44] LABS: Nicotinamide <20 ng/mL (see note); Vit B3 - Nicotinic Acid <20 ng/mL (see note); Vitamin B5 (Pantothenic Acid) <=40 ng/mL (<275)
[2024-05-26 18:44] LABS: Vitamin A 44 mcg/dL (38-98)
[2024-05-26 19:23] LABS: Alpha-Tocopherol 9.9 mg/L (5.7-19.9); Beta-Gamma Tocopherol <1.0 mg/L (<=4.3)
[2024-05-27 15:10] LABS: Vitamin B6 4.4 ng/mL (2.1-21.7)
== END 2024-05-21 07:37 | disposition home or self-care (01) ==
LOC: HO.LAB 07:36
PROVIDERS: PCP Internal Medicine; Visit Provider Internal Medicine Gastroenterology
DX: E46 Unspecified protein-calorie malnutrition (principal)
CPT/HCPCS: 36415; 82180; 82306; 82607; 82728; 82746; 83735; 84207; 84425; 84446; 84590; 84591; 84597; 84630

== ENCOUNTER 2024-07-05 08:00 | Outpatient (AMB) | payer OTHER, SELFPAY ==
--- NOTE | 2024-07-05 08:07 | MHC.OFFWIV ---
Intake Vital Signs 07/05/24 08:08 Weight 215 lb BP 98/62 Blood Pressure Location Rt brachial Position Sitting Pulse 97 Pulse Source Pulse Oximeter Temp 98.2 F Temp Source Oral Pulse Oximetry (%) 99 Oxygen Delivery Method Room Air Intake Visit Reasons: EP-lt foot toe infection Intake Note: Patient here for let big toe infection that has been present for a few weeks. She states she had a ingrown toe nail and was taken care of but now it has come back. Patient Tobacco Use Status: Never used Tobacco Allergies penicillin V Allergy (Mild, Verified 07/05/24 08:12) Rash Do you need a note to return to daycare/school/sports/work: No HPI HPI Comments History of Present Illness Details History of Present Illness Patient is a 29-year-old female coming in with left great toenail pain. She tells me that this has happened several times previously and she is under the care of a oyster grader however they could not see her until July 17 for this issue. She tells me that they did a procedure on the toenail and it was supposed to stop the paronychia is from recurring however she says for the last 1-2 weeks, the skin surrounding her left great toenail has become more painful and tender. She keeps applying Neosporin without much relief. She tells me it is mostly just draining blood but she is sure it is infected. She has received antibiotics before for this issue, she tells me she thinks it was doxycycline. Physical Exam General: Cooperative, healthy appearing, comfortable, no acute distress and well developed Orientation: Patient oriented x3 Limitations: No limitations Head: Normal to inspection Ears: Hearing grossly normal bilaterally Nose: Normal Nxternal nose present Face and sinus: ormal facial exam Eyes: Appearance normal, both eyes and all related structures Neck: Normal visual inspection and Yes full ROM Respiratory: Normal respiratory effort and able to speak in complete sentences. Skin: No rashes or lesions noted Neuro: Patient oriented x3 Extremities: Left great toe nail medial side has surrounding purple appearing edema with flap of dry/ skin in place. [facility] Medical History Migraine Depression Asthma Surgical History History of laparoscopic appendectomy (02/21/24) History of esophagogastroduodenoscopy (EGD) H/O colonoscopy Hx of hernia repair Social History (Updated 05/14/24 @ 12:55 by Stacy Clark CMA) Household Members: Family Housing: House Do you presently have visiting nurse or other home services: No Alcohol intake: current Alcohol intake frequency: holidays/special occasions only Patient Tobacco Use Status: Never used Tobacco e-Cigarette/Vaping Use: Never Used Second Hand Smoke Exposure: No Physical Exam Vital Signs: Last Vital Signs Temp 98.2 F 07/05/24 08:08 Pulse 97 07/05/24 08:08 BP 98/62 07/05/24 08:08 Pulse Ox 99 07/05/24 08:08 Oxygen Delivery Method Room Air 07/05/24 08:08 Office Procedures I&D Drain Details: Cleaned left great toe with iodine, made small incision on medial nail with no purulent fluid, only small amount of blood. Applied bacitracin and band-aid 29160-Ydfeixyo of Hematoma/Fluid All charges added?: Procedure code (CPT) selection complete Assessment & Plan Assessment & Plan (1) Paronychia of great toe, left: Code(s): L03.032 - Cellulitis of left toe Plan: Plan Performed an I&D however, no purulent fluid was noted, only blood. Recommended doxycycline and sent the antibiotic to her pharmacy. Also recommended she keep her appointment with Podiatry as there is a flap of skin on the medial toenail that is likely causing her infections. This flap of skin she tells me is left over after the procedures that her oyster grader has performed on her. Patient was informed and verbally consented to the use of an ambient scribe for clinic note documentation during this visit. Medications: New doxycycline hyclate 100 mg PO BID 10 tabs 0RF Coding Level of Care Code Est Pt Level 4 (87253) Diagnoses Paronychia of great toe, left L03.032 CPT Codes I&D Drain - Drain 5: [id number]-Pmyqhlbl of Hematoma/Fluid ([id number])
[2024-07-05 08:08] VITALS: BP 98/62; PULSE 97; TEMP 36.8; O2SAT 99
== END 2024-07-05 08:36 | disposition home or self-care (01) ==
PROVIDERS: PCP Internal Medicine; Visit Provider Physician Assistant
DX: L03.032 Cellulitis of left toe (principal)

== ENCOUNTER → 2024-07-05 08:00 | Outpatient (BNVA) | payer OTHER, SELFPAY | PROVIDERS: PCP Internal Medicine; Visit Provider Physician Assistant | DX: L03.032 Cellulitis of left toe (principal) | CPT/HCPCS: 10140 ==

== ENCOUNTER 2024-09-14 07:19 | Outpatient (REF) | payer OTHER, SELFPAY ==
--- OUTSIDE RECORDS SUMMARY | 2024-09-14 07:22 | XMS_ITS ---
Author Organization [facility] Address [address] [place] [address] Care Team Providers Care Lance Crewmember/Mlrs Sergeant Name Role Phone Concepcion Mendoza Primary Care Provider Jamie Muñoz [phone] REASON FOR VISIT ? next step Encounters Encounter Location Date Provider Diagnosis [facility] [address] [place] [address] 08/02/2024 Jamie Donaldson Plan Of Treatment No Information Progress Notes * Mark SALDANAOB:[birth year] (29 yo F)Acc No.[id number]:08/02/2024 Patient:?Shamar SALDANA :1995???Age:29 Y???Sex:Female Address:[address] [place] [id number] * true * Date:? Generated for Luisi geovani/Twin/eTransmitting on:?09/14/2024 07:21 AM EST
--- OUTSIDE RECORDS SUMMARY | 2024-09-14 07:22 | XMS_ITS | Clinical Summary ---
[facility] [address] [place] [address] Care Team Providers Care Cold Rolling Coordinator Name Role Phone Koko Kumar MD Primary Care Provider [phone] Social History Tobacco Use Types Packs/Day Years Used Date Smoking Tobacco: Never Assessed Comments Unknown Sex and Gender Information Value Date Recorded Sex Assigned at Not on file Legal Sex Female 4:50 AM EST Gender Identity Not on file Sexual Orientation Not on file Plan of Treatment Health Maintenance Due Date Last Done Comments DTaP,Tdap,and Td Vaccines (1 - Tdap) 2014 Hepatitis B Vaccines (1 of 3 - 19+ 3-dose series) 2014 Cervical Cancer Screening: P ap Smear 01/25/2016 COVID-19 Vaccine (2023-2 5 season) 2024 Influenza Vaccine (#1) 2024 HIB Vaccines Aged Out No longer eligi ble based on patient's age to complete this topic HPV Vaccines Aged Out No longer eligi ble based on patient's age to complete this topic Hepatitis A Vaccines Aged Out No long er eligible based on patient's age to complete this topic IPV Vaccines Aged Out No longer eligi ble based on patient's age to complete this topic MMR Vaccines Aged Out No longer eligi ble based on patient's age to complete this topic Meningococcal ACWY Vaccine Aged Out N o longer eligible based on patient's age to complete this topic Meningococcal B Vacine Aged Out No lo nger eligible based on patient's age to complete this topic Pneumococcal Vaccine: Pediat rics (0 to 5 Years) and At-Risk Patients (6 to 64 Years) Aged Out No longer eligible b ased on patient's age to complete this topic RSV Immunization Patients Un denny 20 months Aged Out No longer eligible b ased on patient's age to complete this topic Varicella Vaccines Aged Out No longer eligible based on patient's age to complete this topic Care Teams Cold Rolling Coordinator Relationship Specialty Start Date End Date Koko Kumar MD [address] [facility] [place] [id number] PCP - General Internal Medicine 11/18/20
--- OUTSIDE RECORDS SUMMARY | 2024-09-14 07:22 | XMS_ITS | Data Portability ---
Author Organization [facility] Pan [facility], [address] Address [address] [place] [address] Assessment No assessment recorded. Plan of Treatment Reminders Order Date Submit Date Provider Last Modified By Organization Details Last Modified Time Details Appointments None recorded. Lab None recorded. Referral None recorded. Procedures None recorded. Surgeries None recorded. Imaging None recorded. Medication Orders benzonatate 200 mg capsule 2021 022 [id number], [address], [place], [id number], 08:38:53 Patient TargetsNo targets recorded. Patient Instructions Encounter Date Encounter Id Patient Instructions Last Modified By Organization Details Last Modified Time 06/15/2022 [id number] cough: care instructions [email or web address] Not available 06/15/2022 08:38:42 influenza (flu): care instructions [email or web address] Not available 06/15/2022 08:38:42 Based on your Presentation and Exam you are being diagnosed with Influenza. Your rapid Flu test was Influenza is caused by a virus that is highly contagious. If you have any family member that have been exposed they typically will start to show symptoms in 48-72 hours. Unfortunately you are out of the window to be prescribed Tamiflu - which has to be started within 48 hours to be effective. If it is started after that time it typically can cause GI symptoms. If family member show symptoms, remember that treatment has to be started within 48 hours. You are considered contagious for 5 Days after the start of the fever. You should isolate and not go to work, sports, events during this quarantine period. The following are my recommendations to help with your symptoms while your body fights this infection: 1. Take Ibuprofen or Tylenol if you do not have any allergies to these medications. If you take a blood thinner you should not take NSAIDS like Ibuprofen. These medication will help with the inflammation in your respiratory tract which should help the cough. 2. Do not take any decongestants at this time because this will dry out that tract too much. If you have a lot of nasal congestion you can try nasal decongestants, but I would not take them more than 5 days. 3. Use a humidifier or add a cup of water by your bed. Sometimes if our sleeping environment is too dry this can lead to cough 4. Salt Water Gargles 5. Saline nasal spray is helpful. 6. Would recommend taking a antihistamine to help with the congestion. 7. Clean Surfaces regularly and try to stay isolated from family members. I would be seen again if you develop any of the following. 1. Cough develops last longer than 3 weeks. 2. Develop shortness of breath or wheezing. 3. Severe Headache with vision changes 4. Stiff Neck 5. Fever does not reduce a few points with Ibuprofen or Tylenol. I would go immediately to the Emergency Room if you develop: 1. Chest Pain 2. Severe Shortness of breath 3. Coughing up Blood. [email or web address] Not available 06/15/2022 08:31:49 Reason for Referral None Reported. Problems Name Problem SNOMED Code Status Onset Date Resolution Date Notes Provider Name and Address Organization Details Recorded Time Asthma 286461720 Active SHAHZAD franklin [place] - [facility] 2 08:24:13 Depressive disorder 77609087 Active SHAHZAD franklin [facility] 2 08:24:39 Anxiety 14742312 Active SHAHZAD franklin [facility] 2 08:24:45 Problem Notes None recorded. Procedures Surgical History Date Name Laterality Status Provider Name and Address Organization Details Recorded Time 7 repair of femoral hernia completed SHAHZAD AVILA [facility] 06/15/2022 08:25:51 Imaging Results None recorded. Procedure Notes None recorded. Medical Equipment None Reported. Allergies Allergen ID Allergen Name Allergen Category Reaction Reaction Severity Criticality Documentation Date Start Date Code Code System Note Provider Name and Address Organization Details Recorded Time 08756 Product containin g penicilli n (product) medicatio n hives Not available Not available 06/15/2022 08169 8001 SNOMED [facility] M[facility] - [facility] 08:23:30 Medications Name Sig Start Date Stop Date Status Note LastModified by Organization Details LastModified Time neomycin-po lymyxin-hyd rocort 3.5 mg/mL-10,00 0 unit/mL-1 % ear solution INSTILL 4 DROPS INTO RIGHT EAR 4 TIMES A DAY FOR 1 WEEK 06/15 completed Not Available Not Available Not Available azithromyci n 250 mg tablet TAKE 2 TABLETS BY MOUTH FOR 1 DAY THEN TAKE 1 TABLET BY MOUTH DAILY FOR 4 DAYS 06/15 completed Not Available Not Available Not Available benzonatate 200 mg capsule TAKE 1 CAPSULE BY MOUTH THREE TIMES DAILY active Not Available Not Available No t Available hydrocodone 5 mg-acetamin ophen 325 mg tablet TAKE 1 TABLET BY MOUTH EVERY 6 HOURS NEEDED. MAY REQUEST A PARTIALFI LL active Not Available Not Available No t Available clindamycin HCl 150 mg capsule TAKE 1 CAPSULE BY MOUTH EVERY 8 HOURS UNTIL GONE 06/15 completed Not Available Not Available Not Available bupropion HCl SR 100 mg tablet,12 hr sustained-r elease TAKE 1 TABLET BY MOUTH TWICE DAILY TAKE THE AM DOSE 100 MG EVERY DAY FOR 2 WEEKS AND THEN. INCREASE TO 2 TIMES A DAY 06/15 completed Not Available Not Available Not Available prednisolon e acetate 1 % eye drops,suspe nsion active Not Available Not Available Not Available lorazepam 1 mg tablet TAKE 1 TABLET BY MOUTH 20 MINUTES PRIOR TO CROSSLINK ING PROCEDURE EVERY DAY active Not Available Not Available No t Available escitalopra m 10 mg tablet TAKE 1 TABLET BY MOUTH DAILY 06/15 completed Not Available Not Available Not Available escitalopra m 20 mg tablet TAKE 1 TABLET BY MOUTH DAILY 06/15 completed Not Available Not Available Not Available moxifloxaci n 0.5 % eye drops active Not Available Not Available Not Available bupropion HCl XL 300 mg 24 hr tablet, extended release TAKE 1 TABLET BY MOUTH DAILY active Not Available Not Available No t Available bupropion HCl XL 150 mg 24 hr tablet, extended release TAKE 1 TABLET BY MOUTH EVERY 24 HOURS 06/15 completed Not Available Not Available Not Available nitrofurant oin monohydrate /macrocryst als 100 mg capsule TAKE 1 CAPSULE BY MOUTH TWICE A DAY FOR 5 DAYS 06/15 completed Not Available Not Available Not Available Wellbutrin SR active Not Available Not Available Not Available Xulane 150 mcg-35 mcg/24 hr transdermal patch APPLY 1 PATCH TOPICALLY TO THE SKIN 1 TIME WEEKLY active Not Available Not Available No t Available Xiidra 5 % eye drops in a dropperette INSTILL 1 DROP IN EACH EYE TWICE DAILY 06/15 completed Not Available Not Available Not Available Vitals Date Recorded Body weight Body mass index (BMI) Body height Respiratory rate Oxygen saturation Oxygen saturation in Arterial blood by Pulse oximetry Heart rate Body temperature Systolic blood pressure Diastolic blood pressure Provider Name and Address Organization Details Last Updated DateTime 2 55217.3 3 g 33.1 kg/m2 162.56 cm 18 /min 98 % 98 % 109 /min 98.9 [degF] 112 mm[Hg] 81 mm[Hg] SHAHZAD AVILA [employer] 08:26:51 Social History Question Answer Notes LastModified by CertificationPointizat ion Details LastModified Time Tobacco Smoking Status Never Smoker [facility] 06/15/2022 08:25:12 What Is Your Level Of Alcohol Consumption? Occasional [email or web address] Information not available 06/15/2022 Do You Use Any Illicit Or Recreational Drugs? No [email or web address] Information not available 06/15/2022 Have You Recently Traveled Abroad? Yes [employer] Cruise From 06/06-06/12 [email or web address] Information not available 06/15/2022 Do You Or Have You Ever Used Any Other Forms Of Tobacco Or Nicotine? No [email or web address] Information not available 06/15/2022 Sex: Unknown Functional Status None recorded. Mental Status None recorded. Family History Relationship Description Onset Age of this Age Resolved Age Notes LastModified by Organization Details LastModified Time Father No current problems or disability Not available 06/15 08:24:50 Mother No current problems or disability [email or web address] Not available 06/15 08:24:50 Medical History No medical history recorded. Gynecological HistoryNo gynecological history recorded. Obstetrics History GPAL:G 0 P 0 0 0 0 Past Encounters Encounter ID Performer Location Encounter Start Date Encounter Closed Date Diagnosis/Indication Diagnosis SNOMED-CT Code Diagnosis ICD10 Code Diagnosis Note [id number] [address] [place] [address] 04/12/2020 16:07:47 04/12/2020 19:45:33 [id number] [address] [place] [address] 08/01/2020 09:30:38 08/01/2020 11:05:06 [id number] [address] [place] [address] 03/15/2020 16:41:41 03/15/2020 17:38:33 [id number] [facility] WINSLOW [address] [place] [address] 06/15/2022 08:05:32 06/15/2022 08:43:51 Influenza caused by Influenza A virus 365042533 J09.X2 Health Concerns Section Related Observation LastModified by Organization Detai ls LastModified Time None Recorded Concern Status LastModified by Organization Details LastModified Time None Recorded Advance Directives Directive None Recorded Payers Encounter Date Sequence Insurance Name Policy Number Policy Horne Covered Member ID Horne Member ID Guarantor Name 03/15/2020 1 [facility] (MEDICAID REPLACEMENT - HMO) [id number] Paris Saldana [id number] Paris Saldana 04/12/2020 1 [facility] (MEDICAID REPLACEMENT - HMO) [id number] Paris Saldana [id number] Paris Saldana 08/01/2020 1 [facility] (MEDICAID REPLACEMENT - HMO) [id number] Paris Saldana [id number] Paris Saldana 06/15/2022 1 [employer] (PPO) Paris Saldana [id number] Paris Saldana Notes Date Note Type Note Provider Name and Address Organization Details Recorded Time 2 text/html CoughReported bypatient.source of patient informationInformation obtained from patient; Patient arrived at Urgent Care ambulatory Quality:productive cough;dry and wet Severity:moderate Duration:3 days Timing:sudden Context:non-smoker;history of asthma Modifying Factors:Lying down; at night Associated Symptoms:no chest pain; no heartburn; no nausea; no vomiting;fever;chills;wheez ing;post nasal dripNotes:Tested positive for Influenza A yesterday. 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 Is here to make sure her lungs sound ok because she heard wheezing last night. The patient does have an albuterol inhalor. [place] WINSLOW [address] [place], [address], [place] - [facility] 06/15/2022 08:42:02 OBGyn Episode No OBEpisode recorded.
--- OUTSIDE RECORDS SUMMARY | 2024-09-14 07:22 | XMS_ITS ---
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 Name Role Phone Concepcion Mendoza Primary Care Provider Jamie Muñoz [phone] Allergies Allergen (clinical drug ingredient) Drug/Non Drug Allergy documented on EMR Reaction Allergy Type Onset Date Status Penicillin rash Drug Allergy Active REASON FOR VISIT pcp 04/2024, Skin problem(s), Ingrown toenail Medications Medication SIG (Take, Route, Frequency, Duration) Notes Start Date End Date Status Vancomycin HCl 125 MG TAKE 1 CAPSULE BY MOUTH FOUR TIMES DAILY FOR 10 DAYS Oral for 10 Days Not-Taking traMADol HCl 50 MG 1-2 tablet as needed Orally Every 4-6 hours as needed for pain for 3 days 04/29/2023 Not-Taking Work Note . . . Mayat had podiatric procedure on 04/26/23-Needs off of work for 04/27/23 04/27/2023 Active Ciprofloxacin-dexAMETHaso ne 0.3-0.1 % SHAKE LIQUID AND INSTILL 4 DROPS TO AFFECTED EAR TWICE DAILY FOR 7 DAYS Otic for 7 Days Not-Taking Doxycycline Hyclate 100 MG TAKE 1 CAPSULE BY MOUTH TWICE DAILY FOR 7 DAYS Oral for 7 Days Not-Taking busPIRone HCl 5 MG Oral for 30 Days Not-Taking Pain Relieving Lidocaine 4 % APPLY 1 PATCH TOPICALLY TO THE SKIN TWICE DAILY NEEDED FOR PAIN External for 30 Days Not-Taking Clindamycin HCl 150 MG TAKE 1 CAPSULE BY MOUTH FOUR TIMES DAILY Oral for 7 Days Not-Taking Topiramate 25 MG Oral for 30 Days Not-Taking SUMAtriptan Succinate 25 MG Oral for 30 Days Not-Taking buPROPion HCl ER (XL) 300 MG Oral for 60 Days Not-Taking Cromolyn Sodium 100 MG/5ML as directed Orally Active Strattera 40 MG 1 capsule in the morning Orally Once a day Active Social History Tobacco Use: Social History Observation Description Date Details (start date - stop date) Never Smoker NA - NA Tobacco use other than smoking: Question Answer Notes Are you an other tobacco user? No Tobacco Control (Standard) Question Answer Notes Tobacco use: Nonsmoker Additional Findings: Tobacco non-user Current no nsmoker AUDIT-C (Standard) Question Answer Notes Did you have a drink containing alcohol in the p ast year? No Points 0 Interpretation Negative Vital Signs Height 5ft 5in in 07/10/2024 Weight 185 lbs 07/10/2024 BMI 30.78 kg/m2 07/10/2024 Blood pressure systolic 106 mm Hg 07/10/20 24 Blood pressure diastolic 70 mm Hg 024 Procedures Procedure Date Ordered Date Performed Result Body Sit e 65385-Rcgtnjmj Plate 07/10/2024 N/A Encounters Encounter Location Date Provider Diagnosis [facility] [address] 07/10/2024 Jamie Donaldson Cellulitis of toe of left foot L03.032 and Ingrown left big toenail L60.0 Assessments Encounter Date Diagnosis (ICD Code) Assessment Notes Treatment Notes Treatment Clinical Notes Section Notes 07/10/2024 Cellulitis of toe of left foot (ICD-10 - L03.032) Pt is to finish oral antibiotcs as prescribed by Urgent Care 07/10/2024 Ingrown left big toenail (ICD-10 - L60.0) Plan Of Treatment Treatment Notes Assessment Notes Cellulitis of toe of left foot Pt is to finish oral antibiotcs as prescribed by Urgent Care Pending Test Test Name Order Date [id number] Plate 07/10/2024 Next Appt Details Follow Up: prn, Reason: Procedure Notes * Category Sub-Category Detail Notes Nail Avulsion Procedure A fine sterile e levator was placed between the eponychium, nail fold, and nail plate to separate the the structures. A sterile nail splitter, and/or sterile 316 blade, was then used to longitudinally section the nail along its entire length through the eponychium to the area under the nail fold. The offending portion of nail was from the nail bed with a rolling action and then removed with a hemostat medial aspect of left hallux. No underlying bone was identified. There was minimal bleeding as hemostasis was achieved through the temporary use of either a digital tournaquet or the aforementioned local with epinephrine. A bacitracin sterile dressing was applied. Local wound aftercare instructions were discussed and dispensed. The patient was informed of both conservative and future surgical procedures to prevent recurrence. Tylenol or Motrin was recommended for pain or discomfort (05270) Anesthesia 3cc of 2% Lidocaine Plain local anesthesic utilizing aseptic technique Location Medial nail border, TA Progress Notes * Germán SALDANAEuniceOB:[birth year] (29 yo F)Acc No.[id number]:07/10/2024 Progress Note Patient:?Shamar SALDANA Provider:?Jamie Donaldson D.P.M. :1995???Age:29 Y???Sex:Female D ate:07/10/2024 Address:[address] [place] [address] Pcp:Concepcion Mendoza Subjective: * Chief Complaints: * ???Pcp 04/2024Skin problem(s )Ingrown toenail * HPI: ???Skin problems:?Nature:?redness, swelling , tender.?Location:?medial left hallux.?Duration:?a few weeks.?Onset/Cause:?gradual.?Course:?worse.?Aggravated by:?shoe gear, any pressure.?Treatments:?doxycycline, bactrim as prescribed by Urgent Care. P&A medial left 05-02.?Severity/Quality:?02/17.? * ROS:?General/Constitutional:?Nausea?denies.?Vomiting?denies.?Hunger Thirst?denies.?Loss appetite?denies.?Chills?denies.?Fatigue?denies.?Fever?denies.?Night Sweats?denies.?Unexplained weight loss?denies.?Unexplained weight gain?denies.?HEENTM:?Dentures?denies.?Dizziness?denies.?Glasses/contacts?admits.?Retinopathy?de nies.?Blurred/double vision?denies.?TMJ?denies.?Discharge/drainage?denies.?Implants?denies.?Sore throat?denies.?Dental implants?denies.?Hard of hearing ?denies.?Difficulty chewing/swallowing/speaking?denies.?Nose bleeds?denies.?Sore mouth?denies.?Respiratory:?On Oxygen?denies.?Pneumonia/pleurisy?denies.?Bronchitis?denies.?Emphysema?denies.?C oughing?denies.?Cough blood?denies.?Shortness of breath?denies.?Wheezing?denies.?Cardiovascular:?Pacemaker?denies.?MVP?denies.?WPW?denies.?CHF?denies.?Heart attack?denies.?Septal defect?denies.?Rapid beat?denies.?Chest pain ?denies.?Atrial Fib.?denies.?Murmur/Palpitations?denies.?Gastrointestinal:?Hemorrhoids?denies.?Stomach/Abdominal pain?denies.?Dark blood stool?denies.?Irritable bowel ?denies.?Constipation?denies.?Diarrhea?denies.?Hematology:?Swelling?denies.?Clots?denies.?Varicose Veins?denies.?Bruising?denies.?Bleeding problem?denies.?Genitourinary:?Blood urine?denies.?Frequent/Painfu/urination/bladder control?denies.?Kidney stones?denies.?Infection (UTI)?denies.?Nephropathy?denies.?sex trans dis (STD)?denies.?Prostate?denies.?Musculoskeletal:?Hammertoes?denies.?Bunions?denies.?Back Pain?denies.?Muscle Cramps/ Resting?denies.?Muscle cramps / walking?denies.?Generalized aches and pains?denies.?Weakness?denies.?Integ.:?[place]?denies.?Scars?denies.?Corns/calluses?denies.?Ingrown nails?admits.?Painful nails?admits.?Open Sores?denies.?Rashes?denies.?Neurologic:?Difficulty sleeping?denies.?Brain disorder?denies.?Numbness?denies.?Balance trouble?denies.?Confusion?denies.?Fainting/blackouts?denies.?Tingling?denies.?Tr emors?denies.? * Medical History:? * Surgical History:?hernia * Hospitalization/Major Diagno stic Procedure:?Denies Past Hospitalization * Family History:?Mother: yazmin guajardo.?Father: alive.? . * Social History:?Tobacco Use:?Tobacco use other than smoking?Are you an other tobacco user??No ?Tobacco Control (Standard)?Tobacco use:?Nonsmoker ?Additional Findings: Tobacco non-user?Current nonsmoker ???Drugs/Alcohol:?Drugs?Have you used drugs other than those for medical reasons in the past 12 months??No ???Miscellaneous:?Caffeine: no. ?Children: no. ?Exercise: yes, walking. ?Marital status: . 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 ???Drug/Alcohol:?AUDIT-C (Standard)?Did you have a drink containing alcohol in the past year??No ?Points?0 ?Interpretation?Negative * Medications:?TakingStrattera 40 MG Capsule 1 capsule in the morning Orally Once a day Cromolyn Sodium 100 MG/5ML Concentrate as directed Orally Work Note . . . . Cheryl had podiatric procedure on 04/26/23-Needs off of work for 04/27/23 Taking Strattera 40 MG Capsule 1 capsule in the morning Orally Once a day Taking Cromolyn Sodium 100 MG/5ML Concentrate as directed Orally Taking Work Note . . . . Cheryl had podiatric procedure on 04/26/23-Needs off of work for 04/27/23 Not-Taking/PRNbuPROPion HCl ER (XL) 300 MG Tablet Extended Release 24 Hour Oral busPIRone HCl 5 MG Tablet Oral SUMAtriptan Succinate 25 MG Tablet Oral Topiramate 25 MG Tablet Oral Clindamycin HCl 150 MG Capsule TAKE 1 CAPSULE BY MOUTH FOUR TIMES DAILY Oral Pain Relieving Lidocaine 4 % Patch APPLY 1 PATCH TOPICALLY TO THE SKIN TWICE DAILY NEEDED FOR PAIN External Doxycycline Hyclate 100 MG Capsule TAKE 1 CAPSULE BY MOUTH TWICE DAILY FOR 7 DAYS Oral Ciprofloxacin-dexAMETHasone 0.3-0.1 % Suspension SHAKE LIQUID AND INSTILL 4 DROPS TO AFFECTED EAR TWICE DAILY FOR 7 DAYS Otic Vancomycin HCl 125 MG Capsule TAKE 1 CAPSULE BY MOUTH FOUR TIMES DAILY FOR 10 DAYS Oral traMADol HCl 50 MG Tablet 1-2 tablet as needed Orally Every 4-6 hours as needed for pain Medication List reviewed and reconciled with the patientNot-Taking/PRN buPROPion HCl ER (XL) 300 MG Tablet Extended Release 24 Hour Oral Not-Taking/PRN busPIRone HCl 5 MG Tablet Oral Not-Taking/PRN SUMAtriptan Succinate 25 MG Tablet Oral Not-Taking/PRN Topiramate 25 MG Tablet Oral Not-Taking/PRN Clindamycin HCl 150 MG Capsule TAKE 1 CAPSULE BY MOUTH FOUR TIMES DAILY Oral Not-Taking/PRN Pain Relieving Lidocaine 4 % Patch APPLY 1 PATCH TOPICALLY TO THE SKIN TWICE DAILY NEEDED FOR PAIN External Not-Taking/PRN Doxycycline Hyclate 100 MG Capsule TAKE 1 CAPSULE BY MOUTH TWICE DAILY FOR 7 DAYS Oral Not-Taking/PRN Ciprofloxacin-dexAMETHasone 0.3-0.1 % Suspension SHAKE LIQUID AND INSTILL 4 DROPS TO AFFECTED EAR TWICE DAILY FOR 7 DAYS Otic Not-Taking/PRN Vancomycin HCl 125 MG Capsule TAKE 1 CAPSULE BY MOUTH FOUR TIMES DAILY FOR 10 DAYS Oral Not-Taking/PRN traMADol HCl 50 MG Tablet 1-2 tablet as needed Orally Every 4-6 hours as needed for pain Medication List reviewed and reconciled with the patient * Allergies:?Penicillin: rash - Allergyyes[Allergies Verified] Objective: * Vitals:?Ht: 5ft 5in, Wt:185, BMI:30.78, Shoe size: 8.5/9, BP:106/70mm Hg, Ht-cm: 165.1 cm, Wt-k.91 kg. * Examination: ???Dermatologic: ?SKIN FINDINGS:? Skin shows sign(s) of, localized cellulitis without lymphangitis extending proximally to the level of the MPJ? left hallux??.?General Examination: ?GENERAL APPEARANCE:?Reveals a pleasant, alert, well-nourished, well- developed, well hydrated individual, who demonstrates proper attention to hygiene/body habitus, and is in no acute distress, Pt serves as own?historian for office visit today.?ORIENTED:?person, place, and time.?Neurological: ?SENSORY:?Neurological exam reveals intact sensorium, pain sensation normal, vibration sensation intact, pinprick sensation is normal in the lower extremities, Pt denies, anesthesia, burning, paresthesia, tingling, B/L.?DEEP TENDON REFLEXES:?Achilles, 2/4, B/L.?Vascular: ?DP PULSES (B):?3/4, B/L.?PT PULSES (B):?3/4, B/L.?CAPILLARY FILL TIME:?immediate, all digits, B/L.?TROPHIC CONDITION-TEXTURE/ELASTICITY/TURGOR/HAIR GROWTH (B):?normal, B/L.?TEMPERTURE GRADIENT (C):?warm to cool, proximal to distal, B/L.?PIGMENTATION:?normal, B/L.?EDEMA (C):?absent, B/L.?Orthopedic: ?MUSCLE STRENGTH:?5/5 all groups in a symmetrical fashion , B/L.? Assessment: * Assessment: 1.?Cellulitis of toe of left foot - L03.032 (Primary)???Specify :Acute problem, Complicated w/ Multiple Tx Options(4),Dx New problem, Prognosis Uncertain (4),Rx Management (4)???2.?Ingrown left big toenail - L60.0??? Plan: * Treatment: 2.?Ingrown left big toenail?Procedure: [id number] Plate * Procedures:?Nail Avulsion:?Location?Medial nail border, TA.?Anesthesia?3cc of 2% Lidocaine Plain local anesthesic utilizing aseptic technique.?Procedure?A fine sterile elevator was placed between the eponychium, nail fold, and nail plate to separate the the structures. A sterile nail splitter, and/or sterile 316 blade, was then used to longitudinally section the nail along its entire length through the eponychium to the area under the nail fold. The offending portion of nail was from the nail bed with a rolling action and then removed with a hemostat medial aspect of left hallux.? No underlying bone was identified. There was minimal bleeding as hemostasis was achieved through the temporary use of either a digital tournaquet or the aforementioned local with epinephrine. A bacitracin sterile dressing was applied. Local wound aftercare instructions were discussed and dispensed. The patient was informed of both conservative and future surgical procedures to prevent recurrence. Tylenol or Motrin was recommended for pain or discomfort (42996).? * Procedure Codes:?51360 Avuls ion Plate, Modifiers: TA * Preventive Medicine:? ??Counseling:?Discussion:?-13: Office or other outpatient visit for the evaluation and management of an established patient, which required a medically appropriate history and/or examination and LOW level of DECISION MAKING for: 1 STABLE ACUTE UNCOMPLICATED PROBLEM, 2 OR MORE MINOR PROBLEMS, OR 1 STABLE CHRONIC PROBLEM, THAT POSE(S) A LOW RISK FOR MORBIDITY/MORTALITY. The visit on the day of the encounter encompassed interpreting the data and educating the patient as to the nature of their condition, treatment options available according to their individual PMH, meds, allergies, and overall health/living conditions, as well as any potential risks or complications that may occur from a failure to adhere to, and participate in, the recommended course of therapy. The discussion included a complete verbal, and/or written explanation of the examination results, any x-rays taken, the proposed diagnosis, and outline of the treatment plan. A schedule for future care needs was also explained. The patient verbalized an understanding of the instructions at this time and agreed to be an active participant in their treatment. If the patient should think of any questions or concerns after the visit, I have encouraged the patient to call the office.?Abscess/Paraonychia/Ingrown Nails:?We discussed the possible etiologies (genetic, improper nail care, shoe gear, nail trauma) which may lead to ingrown nails and/or paronychial infections. We discussed and reviewed palliative/nonsurgical/deferring definitive treatment (vs) undergoing the treatment procedures of nail avulsion(s) or PNA, which may prevent recurrence and give more lasting results. The possible risks/complications such as worsened condition/delayed healing/nonhealing/failure/recurrence/infection, the potential benefits/advantages of decreased pain/deformity, as well as alterative treatment options including applying nail softening agents/nail groove packing were discussed. No guarantees were given regarding any outcome for any procedure. The patient was educated in the length of time for the affected nail to regrow once completely healed from a nail avulsion procedure. Once the condition has completely healed, the patient was consulted on proper nail care. Patient questions such as details of each procedure, varying time to heal, activity post procedure, and shoe gear were discussed and the answers were verbally confirmed fully understood, Pt will consider PNA if nail cont to regrow ingrown.?Cellulitis/Lymphangitis?The patient was counseled on the diagnosis, etiology, treatment options, and importance for adherence to recommendations regarding the treatment for Cellulitis. Abx were Rxed to address the cellulitis. The advantages and disadvantages of an antibiotic medication, along with its side effects, were discussed with the patient to their comprehended satisfaction. Patient questions re: use, dosage, and possible pharmacutical interactions were reviewed and the answers clearly understood. If the condition should worsen while taking the antibiotics as directed, it was recommeded that the patient call the office immediately or seek emergency medical care. The patient verbally confirmed a full understanding of the above information.? * Follow Up:?prn * Images: * Sign off status: Completed true * Provider:?Jamie Donaldson D.P.M. Date:?06/12 Generated for Mo olivo/Twin/Deepak on:?09/14/2024 07:22 AM EST History and Physical Notes * HPI (History of Present Illness) Category Sub-Category Detail Notes Category Not es Skin problems Nature: redness , swelling , tender Location: medial left hallux Duration: a few weeks Onset/Cause: gradual Course: worse Aggravated by: shoe gear, any press ure Treatments: doxycycline, bactrim as prescribed by Urgent Care. P&A medial left 05-02 Severity/Quality: 02/17 Examination Category Sub-Category Detail Notes Category Not es Neurological SENSORY: Neurological exa m reveals intact sensorium, pain sensation normal, vibration sensation intact, pinprick sensation is normal in the lower extremities, Pt denies, anesthesia, burning, paresthesia, tingling, B/L DEEP TENDON REFLEXES: Achilles, 2/4, B/L Dermatologic SKIN FINDINGS: Skin shows sign( s) of, localized cellulitis without lymphangitis extending proximally to the level of the MPJ left hallux Orthopedic MUSCLE STRENGTH: 5/5 all groups in a symm etrical fashion , B/L General Examination GENERAL APPEARANCE: Reveals a pleasant, alert, well- nourished, well-developed, well hydrated individual, who demonstrates proper attention to hygiene/body habitus, and is in no acute distress, Pt serves as own historian for office visit today ORIENTED: person, place, and t patience Vascular DP PULSES (B): 3/4, B/L PT PULSES (B): 3/4, B/L CAPILLARY FILL TIME: immediate, all digi ts, B/L TEMPERTURE GRADIENT (C): warm to cool, p roximal to distal, B/L TROPHIC CONDITION-TEXTURE/ELASTICITY/TURGOR/HAIR GROWTH (B): normal, B/L EDEMA (C): absent, B/L PIGMENTATION: normal, B/L
--- OUTSIDE RECORDS SUMMARY | 2024-09-14 07:22 | XMS_ITS ---
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 :1995???Age:29 Y???Sex:Female D ate:07/17/2024 Address:[address] [place], [place] [id number] Pcp:Concepcion Mendoza Subjective: * Chief Complaints: * ???1. Seen sooner. * Medical History:? Objective: * Vitals:? Assessment: Plan: * Treatment: * Images: * The named appointment provid er may or may not be the originator of this progress note, and it is not deemed complete until electronically signed by the appointment provider. Sign off status: Pending * Provider:?Jamie Donaldson D.P.M. Date:?01/2025 Generated for Mo olivo/Twin/eTransmitting on:?09/14/2024 07:21 AM EST
[2024-09-14 07:44] LABS: MANUAL DIFF FLAG NO
[2024-09-14 08:02] LABS: Basophils Percent Auto 0.3 % (0-2); Eosinophils Absolute Auto 0.1 X10*3/uL (0.0-0.4); Eosinophils Percent Auto 1.9 % (0-4); Hemoglobin 12.9 g/dl (12.0-16.0); Imm Gran Abs Auto 0.04 X10*3/uL (0.00-0.03); Imm Gran Pct Auto 0.5 % (0.0-0.4); Lymphocytes Absolute Auto 2.2 X10*3/uL (1.2-4.9); Mean Corpuscular HGB Conc 33.1 g/dl (31.0-35.0); Mean Corpuscular Hemoglobin 28.8 pg (27.0-33.0); Mean Corpuscular Volume 87.1 fL (80.0-98.0); Mean Platelet Volume 10.1 fL (9.4-12.3); Monocytes Absolute Auto 0.4 X10*3/uL (0.1-1.2); Monocytes Percent Auto 5.3 % (2-11); Neutrophils Absolute Auto 4.6 x10*3/uL (2.0-8.3); Platelet Count 265 X10*3/uL (160-400); Red Blood Count 4.48 X10*6/uL (4.20-5.50); Red Cell Distribution Width 13.5 % (11.0-16.0); White Blood Count 7.4 X10*3/uL (4.8-10.8)
[2024-09-14 08:17] LABS: Alanine Aminotransferase 31 U/L (0-31); Albumin Level 4.1 g/dL (3.5-5.0); Alkaline Phosphatase 94 U/L (39-117); Anion Gap 11 (12-20); Aspartate Amino Transferase 29 U/L (5-31); Bilirubin Total 0.6 mg/dL (0.0-1.0); Blood Urea Nitrogen 13 mg/dL (9-16); Calcium 8.8 mg/dL (8.4-10.2); Carbon Dioxide 24 mmol/L (22-29); Chloride 108 mmol/L (96-108); Estimated Glomerular Filt Rate > 60; Glucose Random 94 mg/dL (60-115); Phosphorus 2.9 mg/dL (2.7-4.5); Potassium 4.4 mmol/L (3.3-5.1); Sodium 139 mmol/L (135-145); Total Protein 7.5 g/dL (6.5-8.0)
[2024-09-14 08:33] LABS: Ferritin 24 ng/mL (10-122); Vitamin D 25-OH Total 32.6 ng/mL (>30)
[2024-09-14 08:47] LABS: Folate 6.3 ng/mL (> or = 4.0); Vitamin B12 791 pg/mL (200-900)
[2024-09-17 19:13] LABS: Zinc 71 mcg/dL (60-130)
[2024-09-18 22:48] LABS: Alpha-Tocopherol 9.9 mg/L (5.7-19.9); Beta-Gamma Tocopherol <1.0 mg/L (<=4.3)
[2024-09-19 02:18] LABS: Vitamin A 45 mcg/dL (38-98)
[2024-09-19 22:08] LABS: Vitamin K1 177 pg/mL (130-1500)
[2024-09-21 08:09] LABS: Immunoglobulin E 133 kU/L (<OR=114)
[2024-09-24 23:44] LABS: Nicotinamide <20 ng/mL (see note); Vit B3 - Nicotinic Acid <20 ng/mL (see note); Vitamin B1 38 nmol/L (8-30); Vitamin B5 (Pantothenic Acid) 57 ng/mL (<275)
[2024-09-25 15:48] LABS: Histamine Plasma <1.5 ng/mL (< OR = 1.8)
== END 2024-09-14 07:20 | disposition home or self-care (01) ==
LOC: HO.LAB 07:19
PROVIDERS: PCP Internal Medicine; Visit Provider Internal Medicine Gastroenterology
DX: E46 Unspecified protein-calorie malnutrition (principal); E83.52 Hypercalcemia; K75.81 Nonalcoholic steatohepatitis (NASH)
CPT/HCPCS: 36415; 80053; 82306; 82607; 82728; 82746; 82785; 83088; 83735; 84100; 84207; 84425; 84446; 84590; 84591; 84597; 84630; 85025

== ENCOUNTER 2024-10-02 13:19 | Outpatient (REF) | payer OTHER, SELFPAY ==
[2024-10-02 15:10] LABS: C Reactive Protein 0.52 mg/dL (< or = 0.50); Erythrocyte Sedimentation Rate 16 MM/HR (0-20)
[2024-10-03 07:03] LABS: IgA 252 mg/dL (47-310); IgG 1264 mg/dL (600-1640); IgM 194 mg/dL (50-300)
[2024-10-03 22:08] LABS: Myeloperoxidase Antibody <1.0 AI; Proteinase 3 PR3 Antibodies <1.0 AI
[2024-10-05 13:14] LABS: Aldolase 1.5 U/L (<=8.1)
[2024-10-08 11:08] LABS: Immunoglobulin E 169 kU/L (<OR=114)
[2024-10-08 11:45] LABS: Anti Nuclear Antibody Pattern Nuclear, Speckled; Anti Nuclear Antibody Screen POSITIVE (NEGATIVE); Anti Nuclear Antibody Titer 1:40 titer
== END 2024-10-02 13:20 | disposition home or self-care (01) ==
LOC: HO.LAB 13:19
PROVIDERS: PCP Internal Medicine; Visit Provider Internal Medicine Gastroenterology
DX: R79.82 Elevated C-reactive protein (CRP) (principal); D89.40 Mast cell activation, unspecified
CPT/HCPCS: 36415; 82085; 82550; 82784; 82785; 85652; 86021; 86038; 86039; 86140

== ENCOUNTER 2024-10-10 14:18 | Outpatient (AMB) | payer OTHER, SELFPAY ==
[2024-10-10 14:22] VITALS: BP 102/66; PULSE 88; O2SAT 98; BMI 35.0
--- NOTE | 2024-10-10 14:22 | MHC.OFFVIS ---
Vital Signs 10/10/24 14:22 Height 5 ft 4 in Weight 203 lb 14.841 oz BMI 35.0 BP 102/66 Blood Pressure Location Lt brachial Position Sitting Pulse 88 Pulse Source Pulse Oximeter Pulse Oximetry (%) 98 Oxygen Delivery Method Room Air Intake Visit Reasons: RA, pos CCP, and arthropathy Intake Note: Patient presents today as a new patient, Patient is internally referred by Dr. Woodson for Arthropathy. Patient states that her hands hurt the most. 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 Associated with swelling and stiffness. The stiffness would very induration with sometimes a few minutes and other times lasting all day. Denies rashes, photosensitivity, alopecia, oral/nasal ulcers, sicca symptoms, lymphadenopathy, chest pain/shortness of breath, foamy urine, lower extremity edema, muscle weakness, Raynaud's Also denies history of seizure, CVA, psychosis, history of kidney problems, history of cytopenias, history of VTE including PE or DVTs OB History: Never been Family history: Strong family history of autoimmune disease on her father side: RA, PsO PFSH Medical History Migraine Depression Asthma Surgical History History of laparoscopic appendectomy (02/21/24) History of esophagogastroduodenoscopy (EGD) H/O colonoscopy Hx of hernia repair Social History (Updated 05/14/24 @ 12:55 by Stacy Clark CMA) Household Members: Family Housing: House Do you presently have visiting nurse or other home services: No Alcohol intake: current Alcohol intake frequency: holidays/special occasions only Patient Tobacco Use Status: Never used Tobacco e-Cigarette/Vaping Use: Never Used Second Hand Smoke Exposure: No Review of Systems Const Details: Review of Systems Constitutional: Denies fever, chills, weight loss ENT: Denies vision changes, eye pain or eye redness, dental caries, dry mouth GI: Denies nausea, vomiting, diarrhea, abdominal pain, change in BM Pulm: Denies SOB, [place], hemoptysis, wheezing Cards: Denies chest pain, palpitations Skin: Denies Raynaud's, rash, nail changes, photosensitivity, VIRTUAL CUSTOMER ASSISTANT: Denies headaches, weakness, paresthesias, recurrent falls MSK: as per HPI All other systems reviewed and are unremarkable except noted above Physical Exam Vital Signs: Last Vital Signs Pulse 88 10/10/24 14:22 BP 102/66 10/10/24 14:22 Pulse Ox 98 10/10/24 14:22 Oxygen Delivery Method Room Air 10/10/24 14:22 BMI result Body Mass Index 35.0 Vital signs reviewed Physical Examination CONSTITUITIONAL Patient alert and cooperative. Well appearing and in no apparent painful distress HEENT Conjunctiva and sclera clear. ?Pupils equal round and reactive to light. ?No lymphadenopathy. ? CHEST/RESPIRATORY SYSTEM Normal respiratory effort and able to speak in complete sentences. ?Clear to auscultation bilaterally. ?No crackles, rales, rhonchi, wheezes heard. CARDIAC SYSTEM Regular rate and rhythm. ?S1 and S2 heard no murmurs. 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 No deformities noted. ?No synovitis noted to the MCPs, PIPs or DIPs. ?No tenderness to palpation of these joints. Mild puffiness noted to the hands bilaterally Wrists: ?Full range of motion at the wrists without pain. ?No tenderness to palpation or synovitis noted to the wrists. Elbows: Full range of motion without pain. No tenderness, weakness, swelling, increased warmth or erythema. Shoulders: Full range of motion without pain. No tenderness, weakness, swelling, increased warmth or erythema. Hips: Full range of motion without pain. Hip bursa: No tenderness to palpation Knees: ?Full range of motion. ?No tenderness, swelling, increased warmth or erythema.?No effusion or crepitations Ankles: Full range of motion. ?No tenderness, swelling, increased warmth or erythema.? Feet: ?Negative squeeze test. ?No tenderness to palpation or swelling of the MTPs. Tender points:?No tenderness to palpation of the bilateral trapezius, supraspinatus, greater trochanters, anterior costochondral junctions, bilateral gluteal areas, bilateral suboccipital muscle insertions SKIN Skin intact without rashes. Results Reviewed Results Reviewed: Laboratory Tests 09/14/24 09/27/24 10/02/24 07:40 Lab jose 13:27 WBC 7.4 8.3 RBC 4.48 4.74 Hgb 12.9 13.7 Hct 39.0 42.0 Plt Count 265 278 ESR 16 Sodium 139 Potassium 4.4 Chloride 108 Carbon Dioxide 24 BUN 13 Creatinine 0.76 AST 29 ALT 31 Alkaline Phosphatase 94 Total Creatine Kinase 58 C-Reactive Protein 0.52 H Laboratory Tests 11/04/23 09/27/24 10/02/24 08:18 Lab jose 13:27 Rheumatoid Factor < 13.0 <10 Cycl Citrul Peptide IgG 16 23 ZARINA Screen NEGATIVE POSITIVE A ZARINA Titer 1:40 H Proteinase 3 (PR3) Ab <1.0 Myeloperoxidase Ab <1.0 Double Strand DNA Ab 4 Assessment & Plan Assessment & Plan (1) Polyarthralgia: Code(s): M25.50 - Pain in unspecified joint Plan: #Polyarthralgias Patient is a 29-year-old female who presents for evaluation of polyarthralgias in the setting of a recently in positive CCP. Her exam at this time is not consistent with an underlying inflammatory arthritis with no evidence of synovitis to her MCPs, PIPs, MTPs or any other joint palpated. Also her symptoms of minimal morning stiffness are not consistent with inflammatory arthritis. She does have a pretty significant family history of autoimmunity including rheumatoid arthritis which means she can have the propensity to develop antibodies but whether these antibodies are currently pathologic is unclear. We will check x-rays and an MRI of the hands to evaluate for underlying synovitis Plan - Check XRs bilateral hands - Check MRI bilateral hands - RTC after results Plan I spent 32 minutes reviewing the record and labs, taking a history, examining the patient, discussing the treatment plan, ordering diagnostic work up and documenting in the medical record Orders: Orders XR hand LT min 3V Today M19.90 - Unspecified osteoarthritis, unspecified site MR hand RT wo con Today M19.90 - Unspecified osteoarthritis, unspecified site XR hand RT min 3V Today M19.90 - Unspecified osteoarthritis, unspecified site MR hand LT wo con Today M19.90 - Unspecified osteoarthritis, unspecified site Referrals Rheumatology Referral M12.9 - Arthropathy, unspecified, M19.90 - Unspecified osteoarthritis, unspecified site Coding Level of Care Code New Pt Level 3 (10482) Complex EM visit Add On G2211 Diagnoses Polyarthralgia M25.50
--- OUTSIDE RECORDS SUMMARY | 2024-10-10 17:06 | XMS_ITS ---
Author Organization [facility] Address [address] [place] [address] Care Team Providers Care Offset Press Operator Helper Name Role Phone Concepcion Mendoza Primary Care Provider Cha Mckay Unavailable [phone] Jamie Donaldson [phone] REASON FOR VISIT seen sooner Encounters Encounter Location Date Provider Diagnosis [address] [address] 07/17/2024 Jamie Donaldson Plan Of Treatment No Information Progress Notes * Feng SALDANA:[birth year] (29 yo F)Acc No.[id number]:07/17/2024 Progress Note Patient:?Carmelita SALDANAndr fadi Provider:?Jamie Donaldson D.P.M. :1995???Age:29 Y???Sex:Female D ate:07/17/2024 Address:[address] [place], [place] [id number] Pcp:Concepcion Mendoza Subjective: * Chief Complaints: * [...] Provider:?Jamie Donaldson D.P.M. Date:?01/2025 Generated for Mo olvio/Twin/Deepak on:?10/10/2024 05:06 PM EDT
--- OUTSIDE RECORDS SUMMARY | 2024-10-10 17:06 | XMS_ITS | Patient Health Record ---
Author Organization [facility] Address [address] [facility] [place] [address] Care Team Providers Care Bell Tier Name Role Phone Reji Concepcion Primary Care Provider Cha Mckay Unavailable [phone] Jamie Donaldson Unavailable [phone] Allergies Allergen (clinical drug ingredient) Drug/Non Drug Allergy documented on EMR Reaction Allergy Type Onset Date Status Penicillin rash Drug Allergy Active Reason For Referral No Information Medications Medication SIG (Take, Route, Frequency, Duration) Notes Start Date End Date Status Topiramate 25 MG Oral for 30 Days Not-Taking Zinc Active Clindamycin HCl 150 MG TAKE 1 CAPSULE BY MOUTH FOUR TIMES DAILY Oral for 7 Days Not-Taking Vitamin D Active Pain Relieving Lidocaine 4 % APPLY 1 PATCH TOPICALLY TO THE SKIN TWICE DAILY NEEDED FOR PAIN External for 30 Days Not-Taking Vitamin A Active Doxycycline Hyclate 100 MG TAKE 1 CAPSULE BY MOUTH TWICE DAILY FOR 7 DAYS Oral for 7 Days Not-Taking buPROPion HCl ER (XL) 300 MG Oral for 60 Days Not-Taking busPIRone HCl 5 MG Oral for 30 Days Not-Taking SUMAtriptan Succinate 25 MG Oral for 30 Days Not-Taking Strattera 40 MG 1 capsule in the morning Orally Once a day Active Ciprofloxacin-dexAMETHaso ne 0.3-0.1 % SHAKE LIQUID AND INSTILL 4 DROPS TO AFFECTED EAR TWICE DAILY FOR 7 DAYS Otic for 7 Days Not-Taking Cromolyn Sodium 100 MG/5ML as directed Orally Active Vancomycin HCl 125 MG TAKE 1 CAPSULE BY MOUTH FOUR TIMES DAILY FOR 10 DAYS Oral for 10 Days Not-Taking Work Note . . . Paitent had podiatric procedure on 04/26/23-Needs off of work for 04/27/23 04/27/2023 Active traMADol HCl 50 MG 1-2 tablet as needed Orally Every 4-6 hours as needed for pain for 3 days 04/29/2023 Not-Taking Ivabradine HCl 5 MG Oral for 30 Days Active Social History Tobacco Use: Social History [...] No Points 0 Interpretation Negative Vital Signs Heart Rate 76 /min 09/27/2024 Blood pressure diastolic 68 mm Hg 09/27/2024 Height 5ft 4in in 09/27/2024 Blood pressure systolic 105 mm Hg 09/27/2024 Weight 204 lbs 09/27/2024 BMI 35.01 kg/m2 09/27/2024 Procedures Procedure Date Ordered Date Performed Result Body Sit e 04876-Boonrjjo Plate 07/10/2024 N/A Encounters Encounter Location Date Provider Diagnosis [address] [address] 07/10/2024 Jamie Donaldson Cellulitis of toe of left foot L03.032 and Ingrown left big toenail L60.[address] [address] 09/27/2024 Cha Gottlieb [facility] L60.0 [facility] [address] [place] [address] 08/02/2024 Jamie Donaldson Assessments Encounter Date Diagnosis (ICD Code) Assessment Notes Treatment Notes Treatment Clinical Notes Section Notes 07/10/2024 Cellulitis of toe of left foot (ICD-10 - L03.032) Pt is to finish oral antibiotcs as prescribed by Urgent Care 07/10/2024 Ingrown left big toenail (ICD-10 - L60.0) 09/27/2024 Ingrown nail (ICD-10 - L60.0) Plan Of Treatment Pending Test Test Name Order Date [id number] Plate 07/10/2024 Insurance Providers Payer Name Payer Address Payer Phone Subscriber Number Group Number Insured Name Patient Relationship to Insured Coverage Start Date Coverage End Date Blue Benefits [id number] [place] [id number] [place] Saldana Self - patient is the insured Medical (General) History Medical History History ICD Code Anemia Anxiety asthma Depression Headaches Surgical History Surgery Date(Month/Year) hernia
--- OUTSIDE RECORDS SUMMARY | 2024-10-10 17:07 | XMS_ITS | Clinical Summary ---
[facility] Organization [facility] Address [address] [place] [address] Care Team Providers Care Home Health Aide Caregiver Name Role Phone Koko Kumar MD Primary Care Provider [phone] Social History Tobacco Use Types Packs/Day Years [...] age to complete this topic Care Teams Home Health Aide Caregiver Relationship Specialty Start Date End Date Koko Kumar MD [address] [place] [address] PCP - General Internal Medicine 11/18/20
--- OUTSIDE RECORDS SUMMARY | 2024-10-10 17:07 | XMS_ITS ---
[facility] Address [address] [place] [address] Care Team Providers Care Annealing Furnace Operator Name Role Phone Concepcion Mendoza Primary Care Provider Cha Mckay Unavailable [phone] Allergies Allergen (clinical drug ingredient) Drug/Non Drug Allergy documented on EMR Reaction Allergy Type Onset Date Status Penicillin rash Drug Allergy Active REASON FOR VISIT Ingrown Nail Medications Medication SIG (Take, Route, Frequency, Duration) Notes Start Date End Date Status buPROPion HCl ER (XL) 300 MG Oral for 60 Days Not-Taking Strattera 40 MG 1 capsule in the morning Orally Once a day Active Cromolyn Sodium 100 MG/5ML as directed Orally Active Work Note . . . Cheryl had podiatric procedure on 04/26/23-Needs off of work for 04/27/23 04/27/2023 Active Ivabradine HCl 5 MG Oral for 30 Days Active Zinc Active Vitamin D Active Vitamin A Active Vancomycin HCl 125 MG TAKE 1 CAPSULE BY MOUTH FOUR TIMES DAILY FOR 10 DAYS Oral for 10 Days Not-Taking traMADol HCl 50 MG 1-2 tablet as needed Orally Every 4-6 hours as needed for pain for 3 days 04/29/2023 Not-Taking Topiramate 25 MG Oral for 30 Days Not-Taking Clindamycin HCl 150 MG TAKE 1 CAPSULE BY MOUTH FOUR TIMES DAILY Oral for 7 Days Not-Taking Pain Relieving Lidocaine 4 % APPLY 1 PATCH TOPICALLY TO THE SKIN TWICE DAILY NEEDED FOR PAIN External for 30 Days Not-Taking Doxycycline Hyclate 100 MG TAKE 1 CAPSULE BY MOUTH TWICE DAILY FOR 7 DAYS Oral for 7 Days Not-Taking Ciprofloxacin-dexAMETHaso ne 0.3-0.1 % SHAKE LIQUID AND INSTILL 4 DROPS TO AFFECTED EAR TWICE DAILY FOR 7 DAYS Otic for 7 Days Not-Taking busPIRone HCl 5 MG Oral for 30 Days Not-Taking SUMAtriptan Succinate 25 MG Oral for 30 Days Not-Taking Social History Tobacco Use: Social History Observation [...] 0 Interpretation Negative Vital Signs Height 5ft 4in in 09/27/2024 Weight 204 lbs 09/27/2024 BMI 35.01 kg/m2 09/27/2024 Blood pressure systolic 105 mm Hg 09/28/19 25 Blood pressure diastolic 68 mm Hg 025 Heart Rate 76 /min 09/27/2024 Encounters Encounter Location Date Provider Diagnosis [address] [address] 09/27/2024 Cha Gottlieb Ingrown nail L60.0 Assessments Encounter Date Diagnosis (ICD Code) Assessment Notes Treatment Notes Treatment Clinical Notes Section Notes 09/27/2024 Ingrown nail (ICD-10 - L60.0) Plan Of Treatment Next Appt Details Follow Up: prn, Reason: Procedure Notes * Category Sub-Category Detail Notes Nail Avulsion Procedure A fine sterile e levator was placed between the eponychium, nail fold, and nail plate to separate the structures. A sterile nail splitter, and/or sterile 316 blade, was then used to longitudinally section the nail along its entire length through the eponychium to the area under the nail fold. The offending portion of nail was from the nail bed with a rolling action and then removed with a hemostat. No underlying bone was identified. There was minimal bleeding as hemostasis was achieved through the temporary use of either a digital tourniquet or the aforementioned local with epinephrine. A bacitracin sterile dressing was applied. Local wound aftercare instructions were discussed and dispensed. The patient was informed of both conservative and future surgical procedures to prevent recurrence. Tylenol or Motrin was recommended for pain or discomfort - 31671 Anesthesia 3cc of 1 percent Lid ocaine Plain local anesthesic utilizing aseptic technique Location Medial nail border, T5 Progress Notes * Mark SALDANAOB:[birth year] (29 yo F)Acc No.[id number]:09/27/2024 Progress Note Patient:?Shamar SALDANA Provider:?Cha Gottlieb DPM :1995???Age:29 Y???Sex:Female D ate:09/27/2024 Address:[address] [place], [place] [id number] Pcp:Concepcion Mendoza Subjective: * Chief Complaints: * ???Ingrown Nail * ROS:?General/Constitutional:?Nausea?denies.?Vomiting?denies.?Hunger Thirst?denies.?Loss appetite?denies.?Chills?denies.?Fatigue?denies.?Fever?denies.?Night Sweats?denies.?Unexplained weight loss?denies.?Unexplained weight gain?denies.?HEENTM:?Dentures?denies.?Dizziness?denies.?Glasses/contacts?admits.?Retinopathy?de nies.?Blurred/double vision?denies.?TMJ?denies.?Discharge/drainage?denies.?Implants?denies.?Sore throat?denies.?Dental implants?denies.?Hard of hearing ?denies.?Difficulty chewing/swallowing/speaking?denies.?Nose bleeds?denies.?Sore mouth?denies.?Respiratory:?On Oxygen?denies.?Pneumonia/pleurisy?denies.?Bronchitis?denies.?Emphysema?denies.?C oughing?denies.?Cough blood?denies.?Shortness of breath?denies.?Wheezing?denies.?Cardiovascular:?Pacemaker?denies.?MVP?denies.?WPW?denies.?CHF?denies.?Heart attack?denies.?Septal defect?denies.?Rapid beat?denies.?Chest pain ?denies.?Atrial Fib.?denies.?Murmur/Palpitations?denies.?Gastrointestinal:?Hemorrhoids?denies.?Stomach/Abdominal pain?denies.?Dark blood stool?denies.?Irritable bowel ?denies.?Constipation?denies.?Diarrhea?denies.?Hematology:?Swelling?denies.?Clots?denies.?Varicose Veins?denies.?Bruising?denies.?Bleeding problem?denies.?Genitourinary:?Blood urine?denies.?Frequent/Painfu/urination/bladder control?denies.?Kidney stones?denies.?Infection (UTI)?denies.?Nephropathy?denies.?sex trans dis (STD)?denies.?Prostate?denies.?Musculoskeletal:?Hammertoes?denies.?Bunions?denies.?Back Pain?denies.?Muscle Cramps/ Resting?denies.?Muscle cramps / walking?denies.?Generalized aches and pains?admits.?Weakness?denies.?Integ.:?[place]?denies.?Scars?denies.?Corns/calluses?denies.?Ingrown nails?admits.?Painful nails?admits.?Open Sores?denies.?Rashes?denies.?Neurologic:?Difficulty sleeping?denies.?Brain disorder?denies.?Numbness?denies.?Balance trouble?denies.?Confusion?denies.?Fainting/blackouts?denies.?Tingling?denies.?Tr emors?denies.? * Medical History:? * Surgical History:?hernia * Hospitalization/Major Diagno stic Procedure:?Denies Past Hospitalization * Family History:?Mother: yazmin e.?Father: alive.? . * Social History:?Tobacco Use:?Tobacco use other than smoking?Are you an other tobacco user??No ?Tobacco Control (Standard)?Tobacco use:?Nonsmoker ?Additional Findings: Tobacco non-user?Current nonsmoker ???Drugs/Alcohol:?Drugs?Have you used drugs other than those for medical reasons in the past 12 months??No ???Miscellaneous:?Caffeine: yes, frequency:, 1-2 cups per day. ?Children: no. ?Exercise: yes, walking. ?Marital status: . 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 ???Drug/Alcohol:?AUDIT-C (Standard)?Did you have a drink containing alcohol in the past year??No ?Points?0 ?Interpretation?Negative * Medications:?TakingZinc Yenifer min D Vitamin A Strattera 40 MG Capsule 1 capsule in the morning Orally Once a day Cromolyn Sodium 100 MG/5ML Concentrate as directed Orally Work Note . . . . Cheryl had podiatric procedure on 04/26/23-Needs off of work for 04/27/23 Ivabradine HCl 5 MG Tablet Oral Taking Zinc Taking Vitamin D Taking Vitamin A Taking Strattera 40 MG Capsule 1 capsule in the morning Orally Once a day Taking Cromolyn Sodium 100 MG/5ML Concentrate as directed Orally Taking Work Note . . . . Cheryl had podiatric procedure on 04/26/23-Needs off of work for 04/27/23 Taking Ivabradine HCl 5 MG Tablet Oral Not-Taking/PRNbuPROPion HCl ER (XL) 300 MG Tablet [...] - Allergyyes[Allergies Verified] Objective: * Vitals:?Ht: 5ft 4in, Wt:204, BMI:35.01, Shoe size: 9, BP:105/68mm Hg, HR:76/min, Ht-cm: 162.56 cm, Wt-k.53 kg. * Examination: ???Ingrown Nail: ?INSPECTION:?Reveals nail incurvation, pain on palpation, groove hypertrophy, Medial nail border, T5, There is evidence of surrounding periungual tissue erythema.? Assessment: * Assessment: 1.?Ingrown nail - L60.0 (Xochitl valladares)???Specify :T5??? Plan: * Treatment: * Procedures:?Nail Avulsion:?Location?Medial nail border, T5.?Anesthesia?3cc of 1 percent Lidocaine Plain local anesthesic utilizing aseptic technique.?Procedure?A fine sterile elevator was placed between the eponychium, nail fold, and nail plate to separate the structures. A sterile nail splitter, and/or sterile 316 blade, was then used to longitudinally section the nail along its entire length through the eponychium to the area under the nail fold. The offending portion of nail was from the nail bed with a rolling action and then removed with a hemostat. No underlying bone was identified. There was minimal bleeding as hemostasis was achieved through the temporary use of either a digital tourniquet or the aforementioned local with epinephrine. A bacitracin sterile dressing was applied. Local wound aftercare instructions were discussed and dispensed. The patient was informed of both conservative and future surgical procedures to prevent recurrence. Tylenol or Motrin was recommended for pain or discomfort - 26087.? * Procedure Codes:?99156 Avuls ion Plate, Modifiers: T5 * Follow Up:?prn * Images: * Sign off status: Completed true * Provider:?Cha Gottlieb DPM Date:? Generated for Mo olivo/Twin/Deepak on:?10/10/2024 05:06 PM EDT History and Physical Notes * Examination Category Sub-Category Detail Notes Category Not es Ingrown Nail INSPECTION: Reveals nail inc urvation, pain on palpation, groove hypertrophy, Medial nail border, T5, There is evidence of surrounding periungual tissue erythema
--- OUTSIDE RECORDS SUMMARY | 2024-10-10 17:07 | XMS_ITS | Data Portability ---
Author Organization [facility], [address] Address [address] [place] [address] Assessment No assessment recorded. Plan of Treatment Reminders Order Date Submit Date Provider Last Modified By Organization Details Last Modified Time Details Appointments None recorded. Lab None recorded. Referral None recorded. Procedures None recorded. Surgeries None recorded. Imaging None recorded. Medication Orders benzonatate 200 mg capsule 2021 022 [id number], [address] [place], [place], [phone], 08:38:53 Patient TargetsNo targets recorded. Patient Instructions Encounter Date Encounter Id Patient Instructions Last Modified By Organization Details Last Modified Time 06/15/2022 [id number] cough: care instructions [email or web address] Not available 06/15/2022 08:38:42 influenza (flu): care instructions [email or web address] Not available 06/15/2022 08:38:42 Based on your [...] Shortness of breath 3. Coughing up Blood. [email or web address] Not available 06/15/2022 08:31:49 Reason for Referral None Reported. Problems Name Problem SNOMED Code Status Onset Date Resolution Date Notes Provider Name and Address Organization Details Recorded Time Asthma 737701507 Active SHAHZAD franklin [place] - [facility] 2 08:24:13 Depressive disorder 23224639 Active SHAHZAD franklin [facility] 2 08:24:39 Anxiety 91750378 Active SHAHZAD franklin [facility] 2 08:24:45 Problem Notes None [...] Name and Address Organization Details Recorded Time 45246 Product containin g penicilli n (product) medicatio n hives Not available Not available 06/15/2022 69766 8001 SNOMED [place] [facility] - [facility] [...] Address Organization Details Last Updated DateTime 2 77608.3 3 g 33.1 kg/m2 162.56 cm 18 /min 98 % 98 % 109 /min 98.9 [degF] 112 mm[Hg] 81 mm[Hg] SHAHZAD AVILA [facility] 08:26:51 Social History Question Answer Notes LastModified by [employer] ion Details LastModified Time Tobacco Smoking Status Never Smoker [facility] 06/15/2022 08:25:12 What Is Your Level Of Alcohol Consumption? Occasional [email or web address] Information not available 06/15/2022 Do You Use Any Illicit Or Recreational Drugs? No [email or web address] Information not available 06/15/2022 Have You Recently Traveled Abroad? Yes KrystynaRebel Monkey Cruise From 06/06-06/12 Information not available 06/15/2022 Do You Or Have You Ever Used Any Other Forms Of Tobacco Or Nicotine? No [email or web address] Information not available 06/15/2022 Sex: Unknown Functional Status None recorded. Mental Status None recorded. Family History Relationship Description Onset Age of this Age Resolved Age Notes LastModified by Organization Details LastModified Time Father No current problems or disability [email or web address] Not available 06/15 08:24:50 Mother No current problems or disability Not available 06/15 08:24:50 Medical History No medical history recorded. Gynecological HistoryNo gynecological history recorded. Obstetrics History GPAL:G 0 P 0 0 0 0 Past Encounters Encounter ID Performer Location Encounter Start Date Encounter Closed Date Diagnosis/Indication Diagnosis SNOMED-CT Code Diagnosis ICD10 Code Diagnosis Note [id number] [address] [place] [address] 04/12/2020 16:07:47 04/12/2020 19:45:33 [id number] [address] [place] [address] 08/01/2020 09:30:38 08/01/2020 11:05:06 [id number] [address] [facility] [place] [address] 03/15/2020 16:41:41 03/15/2020 17:38:33 [id number] [facility] [address] [place] [address] 06/15/2022 08:05:32 06/15/2022 08:43:51 Influenza caused by Influenza A virus 252513800 J09.X2 Health Concerns Section Related Observation LastModified by Organization Detai ls LastModified Time None Recorded Concern Status LastModified by Organization Details LastModified Time None Recorded Advance Directives Directive None Recorded Payers Encounter Date Sequence Insurance Name Policy Number Policy Horne Covered Member ID Horne Member ID Guarantor Name 03/15/2020 1 [facility] (MEDICAID REPLACEMENT - HMO) [id number] Paris Saldana [id number] Paris Saldana 04/12/2020 1 [facility] (MEDICAID REPLACEMENT - HMO) [id number] Paris Saldana [id number] Paris Saldana 08/01/2020 1 [facility] (MEDICAID REPLACEMENT - HMO) [id number] Paris Saldana [id number] Paris Saldana 06/15/2022 1 [employer]: [employer] (PPO) Paris Saldana [id number] Paris Saldana Notes Date Note Type Note [...] [facility] [address] [place], [address], [place] - [facility] 06/15/2022 08:42:02 OBGyn Episode No OBEpisode recorded.
--- OUTSIDE RECORDS SUMMARY | 2024-10-10 17:07 | XMS_ITS ---
Author Organization [facility] Address [address] [place] [address] Care Team Providers Care Cylinder Checker Name Role Phone Concepcion Mendoza Primary Care Provider Cha Mckay Unavailable [phone] Jamie Donaldson [phone] REASON FOR VISIT ? next step Encounters Encounter Location Date Provider Diagnosis [address] [address] 08/02/2024 Jamie Donaldson Plan Of Treatment No Information Progress Notes * Feng SALDANA:[birth year] (29 yo F)Acc No.[id number]:08/02/2024 Patient:?Shamar SALDANA :1995???Age:29 Y???Sex:Female Address:[address] [place] [address] * true * Date:? Generated for Mo olivo/Twin/eTransmitting on:?10/10/2024 05:06 PM EDT
== END 2024-10-10 14:56 | disposition home or self-care (01) ==
LOC: HO.RHE 14:18
PROVIDERS: PCP Internal Medicine; Visit Provider Student in an Organized Health Care Education/Training Program
DX: M25.50 Pain in unspecified joint (principal)
CPT/HCPCS: 99203

== ENCOUNTER 2024-10-10 14:18 | Outpatient (REF) | payer OTHER, SELFPAY ==
--- NOTE | ~2024-10-10 | XR_ITS ---
CLINICAL HISTORY: M19.90 - Unspecified osteoarthritis, unspecified site 3 view left hand Comparison: None Findings: Bones intact. No dislocations. No significant arthritic change. No erosions. No radiopaque foreign body. IMPRESSION: 1. No acute findings This document has been electronically signed by: Dustin Weinstein MD on 10/12/2024 08:45:19
--- OUTSIDE RECORDS SUMMARY | 2024-10-10 17:32 | XMS_ITS | Clinical Summary ---
Author Organization [facility] it Address [address] [place] [address] Care Team Providers Care Marketing Traffic Coordinator Name Role Phone Koko Kumar MD Primary Care Provider [phone] Social History Tobacco Use Types Packs/Day Years [...] age to complete this topic Care Teams Marketing Traffic Coordinator Relationship Specialty Start Date End Date Koko Kumar MD [address] [place] [address] PCP - General Internal Medicine 11/18/20
== END 2024-10-10 14:19 | disposition home or self-care (01) ==
LOC: HO.XRAY 14:18
PROVIDERS: PCP Internal Medicine; Visit Provider Student in an Organized Health Care Education/Training Program
DX: M19.90 Unspecified osteoarthritis, unspecified site (principal)
CPT/HCPCS: 73130

== ENCOUNTER → 2024-10-10 15:09 | Outpatient (BNV) | payer OTHER, SELFPAY | PROVIDERS: PCP Internal Medicine; Visit Provider Specialist | DX: M79.642 Pain in left hand (principal) | CPT/HCPCS: 73130 ==

== ENCOUNTER → 2024-10-12 13:25 | Outpatient (BNV) | payer OTHER, SELFPAY | PROVIDERS: PCP Internal Medicine; Visit Provider Radiology Diagnostic Radiology | DX: M19.90 Unspecified osteoarthritis, unspecified site (principal) | CPT/HCPCS: 73218 ==

== ENCOUNTER 2024-10-12 13:26 | Outpatient (REF) | payer OTHER, SELFPAY ==
--- NOTE | ~2024-10-12 | MR_ITS ---
CLINICAL HISTORY: M19.90 - Unspecified osteoarthritis, unspecified site Exam: MRI of the left hand without intravenous contrast. Comparison: Radiographs october 10, 2024. Findings: Bony alignment of the hand is anatomic. No fracture or concerning bone marrow signal alteration. No erosions. Joint spaces are well preserved. Flexor and extensor tendons are intact. Mass or edema within the carpal tunnel. Signal intensity of the median nerve and ulnar nerve is within normal limits. Tiny carpal cyst within the capitate. Impression: Unremarkable MRI of the left hand. This document has been electronically signed by: Fox Gould MD on 10/15/2024 10:02:13
--- NOTE | ~2024-10-12 | MR_ITS ---
CLINICAL HISTORY: M19.90 - Unspecified osteoarthritis, unspecified site Exam: MRI of the right hand without intravenous contrast. Comparison: Radiographs October 10, 2024. Findings: Overall bony alignment is anatomic. No acute fracture or concerning bone marrow signal alteration. No erosions. Mild degenerative change of the STT joint, 1st carpometacarpal joint, and 1st metacarpophalangeal joint. Remainder of the joint spaces are well preserved. Flexor and extensor tendons are intact. No mass or edema within the carpal tunnel. Signal intensity of the median nerve and ulnar nerve is within normal limits. No muscle atrophy. No muscle edema. Impression: Degenerative change along the radial aspect of the carpus extending into the thumb. Otherwise, unremarkable MRI of the right hand. This document has been electronically signed by: Fox Gould MD on 10/15/2024 10:02:07
--- OUTSIDE RECORDS SUMMARY | 2024-10-12 15:18 | XMS_ITS | Patient Health Record ---
Author Organization [facility] Address [address] [place] [address] Care Team Providers Care Integrated Logistics Programs Director Name Role Phone Reji Concepcion Primary Care Provider Cha Mckay Unavailable [phone] Jamie Donaldson Unavailable [phone] Allergies Allergen (clinical drug ingredient) Drug/Non Drug [...] Ordered Date Performed Result Body Sit e 60690-Ifxgnniq Plate 07/10/2024 N/A Encounters Encounter Location Date Provider Diagnosis [address] [address] 07/10/2024 Jamie Donaldson Cellulitis of toe of left foot L03.032 and Ingrown left big toenail L60.[address] [address] 09/27/2024 Cha Gottlieb [facility]grown [facility] L60.0 [facility] [address] [place] [address] 08/02/2024 Jamie Donaldson Assessments Encounter Date Diagnosis (ICD Code) Assessment Notes Treatment Notes Treatment Clinical Notes Section Notes 07/10/2024 Cellulitis of toe of left foot (ICD-10 - L03.032) Pt is to finish oral antibiotcs as prescribed by Urgent Care 07/10/2024 Ingrown left big toenail (ICD-10 - L60.0) 09/27/2024 Ingrown nail (ICD-10 - L60.0) Plan Of Treatment Pending Test Test Name Order Date 98844-Ccunkzge Plate 07/10/2024 Insurance Providers Payer Name Payer Address Payer Phone Subscriber Number Group Number Insured Name Patient Relationship to Insured Coverage Start Date Coverage End Date Blue Benefits [address] [id number] [place] [id number] Paris Saldana Self - patient is the insured Medical (General) History Medical History History ICD Code Anemia Anxiety asthma Depression Headaches Surgical History Surgery Date(Month/Year) hernia
--- OUTSIDE RECORDS SUMMARY | 2024-10-12 15:18 | XMS_ITS ---
[facility] Organization [facility] Address [address] [place] [address] Care Team Providers Care Compositor Apprentice Name Role Phone Concepcion Mendoza Primary Care Provider Cha Mckay Unavailable [phone] Allergies Allergen (clinical drug ingredient) Drug/Non Drug [...] No Points 0 Interpretation Negative Vital Signs Blood pressure systolic 105 mm Hg 09/28/19 25 Blood pressure diastolic 68 mm Hg 025 Heart Rate 76 /min 09/27/2024 Height 5ft 4in in 09/27/2024 Weight 204 lbs 09/27/2024 BMI 35.01 kg/m2 09/27/2024 Encounters Encounter Location Date [facility] [address] 09/27/2024 Cha Gottlieb Ingrown nail L60.0 Assessments [...] was recommended for pain or discomfort - 57172 Anesthesia 3cc of 1 percent Lid ocaine Plain local anesthesic utilizing aseptic technique Location Medial nail border, T5 Progress Notes * Mark SALDANAOB:[birth year] (29 yo F)Acc No.[id number]:09/27/2024 Progress Note Patient:?Shamar SALDANA Provider:?Cha Gottlieb DPM :1995???Age:29 Y???Sex:Female D ate:09/27/2024 Address:[address] [place], [place] [id number] Pcp:Concepcion Mendoza Subjective: * Chief Complaints: * [...] was recommended for pain or discomfort - 90296.? * Procedure Codes:?08759 Avuls ion Plate, Modifiers: T5 * Follow Up:?prn * Images: * Sign off status: Completed true * Provider:?Cha Gottlieb DPM Date:? Generated for Mo olivo/Twin/Deepak on:?10/12/2024 03:18 PM EDT History and Physical Notes * Examination Category Sub-Category Detail Notes Category Not es Ingrown Nail INSPECTION: Reveals nail inc urvation, pain on palpation, groove hypertrophy, Medial nail border, T5, There is evidence of surrounding periungual tissue erythema
--- OUTSIDE RECORDS SUMMARY | 2024-10-12 15:18 | XMS_ITS | Data Portability ---
Author Organization [facility], [address] Address [address] [place] [address] Assessment No assessment recorded. Plan of Treatment Reminders Order Date Submit Date Provider Last Modified By Organization Details Last Modified Time Details Appointments None recorded. Lab None recorded. Referral None recorded. Procedures None recorded. Surgeries None recorded. Imaging None recorded. Medication Orders benzonatate 200 mg capsule 2021 022 [id number], [address] [place], [place], [phone], 08:38:53 Patient TargetsNo targets recorded. Patient Instructions Encounter Date Encounter Id Patient Instructions Last Modified By Organization Details Last Modified Time 06/15/2022 [id number] cough: care instructions [email or web address] Not available 06/15/2022 08:38:42 influenza (flu): care instructions Not available 06/15/2022 08:38:42 Based on your [...] Shortness of breath 3. Coughing up Blood. Not available 06/15/2022 08:31:49 Reason for Referral None Reported. Problems Name Problem SNOMED Code Status Onset Date Resolution Date Notes Provider Name and Address Organization Details Recorded Time Asthma 611485684 Active SHAHZAD franklin [place] - [facility] 2 08:24:13 Depressive disorder 64900427 Active SHAHZAD franklin [facility] 2 08:24:39 Anxiety 24585012 Active SHAHZAD franklin [facility] 2 08:24:45 Problem [...] Name and Address Organization Details Recorded Time 50360 Product containin g penicilli n (product) medicatio n hives Not available Not available 06/15/2022 39147 8001 SNOMED [place] [facility] - [facility] [...] Address Organization Details Last Updated DateTime 2 23754.3 3 g 33.1 kg/m2 162.56 cm 18 /min 98 % 98 % 109 /min 98.9 [degF] 112 mm[Hg] 81 mm[Hg] SHAHZAD AVILA [facility] 08:26:51 Social History Question Answer Notes LastModified by Mylaizat ion Details LastModified Time Tobacco Smoking Status Never Smoker [facility] 06/15/2022 08:25:12 What Is Your Level Of Alcohol Consumption? Occasional [email or web address] Information not available 06/15/2022 Do You Use Any Illicit Or Recreational Drugs? No [email or web address] Information not available 06/15/2022 Have You Recently Traveled Abroad? Yes [employer] Cruise From 06/06-06/12 Information not available 06/15/2022 Do You Or Have You Ever Used Any Other Forms Of Tobacco Or Nicotine? No [email or web address] Information not available 06/15/2022 Sex: Unknown Functional Status None recorded. Mental Status None recorded. Family History Relationship Description Onset Age of this Age Resolved Age Notes LastModified by Organization Details LastModified Time Father No current problems or disability [email or web address] Not available 06/15 08:24:50 Mother No current problems or disability [email or web address] Not available 06/15 08:24:50 Medical History No medical history recorded. Gynecological HistoryNo gynecological history recorded. Obstetrics History GPAL:G 0 P 0 0 0 0 Past Encounters Encounter ID Performer Location Encounter Start Date Encounter Closed Date Diagnosis/Indication Diagnosis SNOMED-CT Code Diagnosis ICD10 Code Diagnosis Note [id number] [address] [place] [address] 04/12/2020 16:07:47 04/12/2020 19:45:33 [id number] [address] [place] [address] 08/01/2020 09:30:38 08/01/2020 11:05:06 [id number] [address] [facility] [place] [address] 03/15/2020 16:41:41 03/15/2020 17:38:33 [id number] [facility] WIN[facility] [address] [place] [address] 06/15/2022 08:05:32 06/15/2022 08:43:51 Influenza caused by Influenza A virus 845224914 J09.X2 Health Concerns Section Related Observation LastModified by Organization Detai ls LastModified Time None Recorded Concern Status LastModified by Organization Details LastModified Time None Recorded Advance Directives Directive None Recorded Payers Encounter Date Sequence Insurance Name Policy Number Policy Horne Covered Member ID Horne Member ID Guarantor Name 03/15/2020 1 [facility] (MEDICAID REPLACEMENT - HMO) [id number] Paris Saldana [id number] Paris Saldana 04/12/2020 1 [facility] (MEDICAID REPLACEMENT - HMO) [id number] Paris Saldana [id number] Paris Saldana 08/01/2020 1 [facility] (MEDICAID REPLACEMENT - HMO) [id number] Paris Saldana [id number] Paris Saldana 06/15/2022 1 [employer]: ZOË (PPO) [place] Saldana [id number] Parsi Saldana Notes Date Note Type Note Provider [...] [facility] [address] [place], [address], [place] - [facility] 06/15/2022 08:42:02 OBGyn Episode No OBEpisode recorded.
--- OUTSIDE RECORDS SUMMARY | 2024-10-12 15:18 | XMS_ITS | Clinical Summary ---
Author Organization [facility] it Address [address] [place] [address] Care Team Providers Care Molding Supervisor Name Role Phone Koko Kumar MD Primary Care Provider [phone] Social History Tobacco Use Types Packs/Day Years [...] age to complete this topic Care Teams Molding Supervisor Relationship Specialty Start Date End Date Koko Kumar MD [address] [place] [address] PCP - General Internal Medicine 11/18/20
--- OUTSIDE RECORDS SUMMARY | 2024-10-12 15:18 | XMS_ITS ---
Author Organization [facility] Address [address] [place] [address] Care Team Providers Care Electrical Products Engineer Name Role Phone Concepcion Mendoza Primary Care Provider Cha Mckay Unavailable [phone] Jamie Donaldson [phone] REASON FOR VISIT ? next step Encounters Encounter Location Date Provider Diagnosis [address] [address] 08/02/2024 Jamie Donaldson Plan Of Treatment No Information Progress Notes * Feng SALDANA:[birth year] (29 yo F)Acc No.[id number]:08/02/2024 Patient:?Shamar SALDANA :1995???Age:29 Y???Sex:Female Address:[address] [place] [address] * true * Date:? Generated for Mo olivo/Twin/eTransmitting on:?10/12/2024 03:18 PM EDT
--- OUTSIDE RECORDS SUMMARY | 2024-10-12 15:18 | XMS_ITS ---
Author Organization [facility] Address [address] [place] [address] Care Team Providers Care Director Drug Safety Name Role Phone Concepcion Mendoza Primary Care Provider Cha Mckay Unavailable [phone] Jamie Donaldson [phone] REASON FOR VISIT seen sooner Encounters Encounter Location Date Provider Diagnosis [address] [address] 07/17/2024 Jamie Donaldson Plan Of Treatment No Information Progress Notes * Feng SALDANA:[birth year] (29 yo F)Acc No.[id number]:07/17/2024 Progress Note Patient:?Carmelita SALDANAndr fadi Provider:?Jamie Donaldson D.P.M. :1995???Age:29 Y???Sex:Female D ate:07/17/2024 Address:[address] [place], [place] [phone] Pcp:Concepcion Mendoza Subjective: * Chief Complaints: * [...] Provider:?Jamie Donaldson D.P.M. Date:?01/2025 Generated for Mo olivo/Twin/Deepak on:?10/12/2024 03:17 PM EDT
== END 2024-10-12 13:27 | disposition home or self-care (01) ==
LOC: HO.MRI 13:26
PROVIDERS: PCP Internal Medicine; Visit Provider Student in an Organized Health Care Education/Training Program
DX: M19.90 Unspecified osteoarthritis, unspecified site (principal)
CPT/HCPCS: 73218

== ENCOUNTER 2024-10-24 08:31 | Outpatient (AMB) | payer OTHER, SELFPAY ==
--- NOTE | 2024-10-24 08:36 | MHC.OFFVIS ---
Vital Signs 10/24/24 08:41 Height 5 ft 4 in Weight 199 lb 8.293 oz BMI 34.2 BP 115/74 Blood Pressure Location Rt brachial Position Sitting Pulse 97 Pulse Source Pulse Oximeter Pulse Oximetry (%) 99 Oxygen Delivery Method Room Air Intake Visit Reasons: follow up Intake Note: Patient presents today for Osteoporosis follow up. 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 At that time she was being evaluated for arthralgias in the setting of a weakly positive CCP. Her history and exam at that time was not consistent with any underlying autoimmune disease however given her strong family history an MRI of her hands was ordered. Additional history from the patient was that she does have color changes to her fingers the cold which she manages conservatively by keeping warm, she also reports photosensitivity and are malar type rash as well. Rheumatologic History: UCTD - RP (normal nail fold capillaries) - photosensitivity - polyarthralgias without evidence of synovitis (normal MRI) - strong family history (father with lupus) Current Rheumatology Medication(s): [facility] Medical History Migraine Depression Asthma Surgical History History of laparoscopic appendectomy (02/21/24) History of esophagogastroduodenoscopy (EGD) H/O colonoscopy Hx of hernia repair Family History (Updated 10/24/24 @ 08:41 by KAYCEE Ahuja) Father Lupus (systemic lupus erythematosus) Social History Household Members: Family Housing: House Do you presently have visiting nurse or other home services: No Alcohol intake: current Alcohol intake frequency: holidays/special occasions only Patient Tobacco Use Status: Never used Tobacco e-Cigarette/Vaping Use: Never Used Second Hand Smoke Exposure: No Review of Systems Const Details: Review of Systems Constitutional: Denies fever, chills, weight loss ENT: Denies vision changes, eye pain or eye redness, dental caries, dry mouth GI: Denies nausea, vomiting, diarrhea, abdominal pain, change in BM Pulm: Denies SOB, [place], hemoptysis, wheezing Cards: Denies chest pain, palpitations Skin: Denies nail changes FABRICATION WELDER: Denies headaches, weakness, paresthesias, recurrent falls MSK: as per HPI All other systems reviewed and are unremarkable except noted above Physical Exam Vital Signs: Last Vital Signs Pulse 97 10/24/24 08:41 BP 115/74 10/24/24 08:41 Pulse Ox 99 10/24/24 08:41 Oxygen Delivery Method Room Air 10/24/24 08:41 BMI result Body Mass Index 34.2 Vital signs reviewed Physical Examination CONSTITUITIONAL Patient alert and cooperative. Well appearing and in no apparent painful distress HEENT Conjunctiva and sclera clear. ?Pupils equal round and reactive to light. ?No lymphadenopathy. ? CHEST/RESPIRATORY SYSTEM Normal respiratory effort and able to speak in complete sentences. ?Clear to auscultation bilaterally. ?No crackles, rales, rhonchi, wheezes heard. CARDIAC SYSTEM Regular rate and rhythm. ?S1 and S2 heard no murmurs. ?Radial pulses intact bilaterally MSK Hands: ?Good customer relations representative strength bilaterally. No deformities noted. ?No synovitis noted to the MCPs, PIPs or DIPs. ?No tenderness to palpation of these joints. Mild puffiness noted to the hands bilaterally Wrists: ?Full range of motion at the wrists without pain. ?No tenderness to palpation or synovitis noted to the wrists. Elbows: Full range of motion without pain. No tenderness, weakness, swelling, increased warmth or erythema. Shoulders: Full range of motion without pain. No tenderness, weakness, swelling, increased warmth or erythema. Hips: Full range of motion without pain. Hip bursa: No tenderness to palpation Knees: ?Full range of motion. ?No tenderness, swelling, increased warmth or erythema.?No effusion or crepitations Ankles: Full range of motion. ?No tenderness, swelling, increased warmth or erythema.? Feet: ?Negative squeeze test. ?No tenderness to palpation or swelling of the MTPs. Tender points:?No tenderness to palpation of the bilateral trapezius, supraspinatus, greater trochanters, anterior costochondral junctions, bilateral gluteal areas, bilateral suboccipital muscle insertions SKIN Skin intact without rashes. Normal nail fold capillaries Results Reviewed Results Reviewed: Laboratory Tests 09/14/24 09/27/24 10/02/24 07:40 Lab jose 13:27 WBC 7.4 8.3 RBC 4.48 4.74 Hgb 12.9 13.7 Hct 39.0 42.0 Plt Count 265 278 ESR 16 Sodium 139 Potassium 4.4 Chloride 108 Carbon Dioxide 24 BUN 13 Creatinine 0.76 AST 29 ALT 31 Alkaline Phosphatase 94 Total Creatine Kinase 58 C-Reactive Protein 0.52 H Immunology labs 11/04/23 09/27/24 10/02/24 08:18 Lab jose 13:27 Rheumatoid Factor < 13.0 <10 Cycl Citrul Peptide IgG 16 23 ZARINA Screen NEGATIVE POSITIVE A ZARINA Titer 1:40 H Proteinase 3 (PR3) Ab <1.0 Myeloperoxidase Ab <1.0 Double Strand DNA Ab 4 MRI Bilateral Hands 10/2024 Findings: Bony alignment of the hand is anatomic. No fracture or concerning bone marrow signal alteration. No erosions. Joint spaces are well preserved. Flexor and extensor tendons are intact. Mass or edema within the carpal tunnel. Signal intensity of the median nerve and ulnar nerve is within normal limits. Tiny carpal cyst within the capitate. Impression: Unremarkable MRI of the left hand Findings: Overall bony alignment is anatomic. No acute fracture or concerning bone marrow signal alteration. No erosions. Mild degenerative change of the STT joint, 1st carpometacarpal joint, and 1st metacarpophalangeal joint. Remainder of the joint spaces are well preserved. Flexor and extensor tendons are intact. No mass or edema within the carpal tunnel. Signal intensity of the median nerve and ulnar nerve is within normal limits. No muscle atrophy. No muscle edema. Impression: Degenerative change along the radial aspect of the carpus extending into the thumb. Otherwise, unremarkable MRI of the right hand. Assessment & Plan Assessment & Plan (1) Undifferentiated connective tissue disease: Code(s): M35.9 - Systemic involvement of connective tissue, unspecified Plan: #UCTD Patient is a 29-year-old female who presents for evaluation of arthralgias in the setting of a weakly positive CCP and a weakly positive ZARINA. Discussed with patient that at this time she does not have any objective evidence of an autoimmune disease but given her photosensitivity, Raynaud's (normal nail fold capillaries) and arthralgias it is reasonable to do a trial of Plaquenil to see if this helps her symptoms. It may be in the pre clinical stage of an autoimmune disease such as lupus and may not have full manifestation/meet clinical criteria. We will try Plaquenil for 4 months and see if there is any improvement in her symptoms Plan - Plaquenil 200mg bid - Check EKG for QTc since patient is on ivabradine - RTC 4 months (2) Encounter for monitoring of hydroxychloroquine therapy: Code(s): Z51.81 - Encounter for therapeutic drug level monitoring; Z79.899 - Other ferry terminal agent (current) drug therapy Plan: #Long-term Use of Hydroxychloroquine Discussed with patient the risks and benefits of hydroxychloroquine in managing the rheumatic condition Benefits include: - Reduced pain, reduce mortality, maintenance of remission and reduction of flares Risks include: - GI upset, skin hyperpigmentation, retinal toxicity (especially after more than 5 years of use), myopathy Advised yearly ophthalmology visits Plan I spent 32 minutes reviewing the record and labs, taking a history, examining the patient, discussing the treatment plan, ordering diagnostic work up and documenting in the medical record Orders: Orders ECG 12 lead EKG Today R94.31 - Abnormal electrocardiogram [ECG] [EKG] Medications: New hydroxychloroquine (Plaquenil) 400 mg (2 x 200 mg) PO DAILY 180 tabs 1RF 90 days M35.9 - Systemic involvement of connective tissue, unspecified Coding Level of Care Code Est Pt Level 4 (89744) Complex EM visit Add On G2211 Diagnoses Undifferentiated connective tissue disease M35.9 Encounter for monitoring of hydroxychloroquine therapy Z51.81; Z79.899
[2024-10-24 08:41] VITALS: BP 115/74; PULSE 97; O2SAT 99; BMI 34.2
--- OUTSIDE RECORDS SUMMARY | 2024-10-24 08:46 | XMS_ITS ---
[facility] Address [address] [place] [address] Care Team Providers Care Artillery Maintenance Supervisor Name Role Phone Concepcion Mendoza Primary Care Provider Cha Mckay Unavailable [phone] Allergies Allergen (clinical drug ingredient) Drug/Non Drug [...] 09/27/2024 Encounters Encounter [facility] Date [facility] [address] 09/27/2024 Cha Gottlieb Ingrown nail L60.0 Assessments [...] was recommended for pain or discomfort - 45679 Anesthesia 3cc of 1 percent Lid ocaine Plain local anesthesic utilizing aseptic technique Location Medial nail border, T5 Progress Notes * Mark SALDANAOB:[birth year] (29 yo F)Acc No.[id number]:09/27/2024 Progress Note Patient:?Shamar SALDANA Provider:?Cha Gottlieb DPM :1995???Age:29 Y???Sex:Female D ate:09/27/2024 Address:[address] [place], [place] [id number] Pcp:Concepcion Mendoza Subjective: * Chief Complaints: * [...] was recommended for pain or discomfort - 82849.? * Procedure Codes:?25994 Avuls ion Plate, Modifiers: T5 * Follow Up:?prn * Images: * Sign off status: Completed true * Provider:?Cha Gottlieb DPM Date:? Generated for Mo olivo/Twin/Deepak on:?10/24/2024 08:46 AM EDT History and Physical Notes * Examination Category Sub-Category Detail Notes Category Not es Ingrown Nail INSPECTION: Reveals nail inc urvation, pain on palpation, groove hypertrophy, Medial nail border, T5, There is evidence of surrounding periungual tissue erythema
--- OUTSIDE RECORDS SUMMARY | 2024-10-24 08:46 | XMS_ITS | Patient Health Record ---
Author Organization [facility] Address [address] [facility] [place] [address] Care Team Providers Care Occupational Health Manager Name Role Phone Reji Concepcion Primary Care Provider Cha Mckay Unavailable [phone] Jamie Donaldson Unavailable [phone] Allergies Allergen (clinical drug ingredient) Drug/Non Drug [...] Ordered Date Performed Result Body Sit e 01597-Pfbzydyx Plate 07/10/2024 N/A Encounters Encounter Location Date Provider Diagnosis [address] [address] 07/10/2024 Jamie Donaldson Cellulitis of toe of left foot L03.032 and Ingrown left big toenail L60.[address] [address] 09/27/2024 Cha Gottlieb Ingrown nail L60.0 [facility] [address] [place] [address] 08/02/2024 Jamie Donaldson Assessments Encounter Date Diagnosis (ICD Code) Assessment Notes Treatment Notes Treatment Clinical Notes Section Notes 07/10/2024 Cellulitis of toe of left foot (ICD-10 - L03.032) Pt is to finish oral antibiotcs as prescribed by Urgent Care 07/10/2024 Ingrown left big toenail (ICD-10 - L60.0) 09/27/2024 Ingrown nail (ICD-10 - L60.0) Plan Of Treatment Pending Test Test Name Order Date 14818-Szkkngpo Plate 07/10/2024 Insurance Providers Payer Name Payer Address Payer Phone Subscriber Number Group Number Insured Name Patient Relationship to Insured Coverage Start Date Coverage End Date Blue Benefits [address] [id number] [place] [id number] Paris Saldana Self - patient is the insured Medical (General) History Medical History History ICD Code Anemia Anxiety asthma Depression Headaches Surgical History Surgery Date(Month/Year) hernia
--- OUTSIDE RECORDS SUMMARY | 2024-10-24 08:46 | XMS_ITS ---
Author Organization [facility] Address [address] [place] [address] Care Team Providers Care Apple Sorter Name Role Phone Concepcion Mendoza Primary Care Provider Cha Mckay Unavailable [phone] Jamie Donaldson [phone] REASON FOR VISIT seen sooner Encounters Encounter Location Date Provider Diagnosis [address] [address] 07/17/2024 Jamie Donaldson Plan Of Treatment No Information Progress Notes * Feng SALDANA:[birth year] (29 yo F)Acc No.[id number]:07/17/2024 Progress Note Patient:?Carmelita SALDANAndr fadi Provider:?Jamie Donaldson D.P.M. :1995???Age:29 Y???Sex:Female D ate:07/17/2024 Address:[address] [place], [place] [id number] Pcp:Concepcion Mendoza Subjective: * Chief Complaints: * [...] Provider:?Jamie Donaldson D.P.M. Date:?01/2025 Generated for Mo olivo/Twin/Alvaroitting on:?10/24/2024 08:46 AM EDT
--- OUTSIDE RECORDS SUMMARY | 2024-10-24 08:47 | XMS_ITS ---
Author Organization [facility] Address [address] [place] [address] Care Team Providers Care Floating Derrick Operator Name Role Phone Concepcion Mendoza Primary Care Provider Cha Mckay Unavailable [phone] Jamie Donaldson [phone] REASON FOR VISIT ? next step Encounters Encounter Location Date Provider Diagnosis [address] [address] 08/02/2024 Jamie Donaldson Plan Of Treatment No Information Progress Notes * Feng SALDANA:[birth year] (29 yo F)Acc No.[id number]:08/02/2024 Patient:?Shamar SALDANA :1995???Age:29 Y???Sex:Female Address:[address] [place] [address] * true * Date:? Generated for Luisi geovani/Twin/eTransmitting on:?10/24/2024 08:46 AM EDT
--- OUTSIDE RECORDS SUMMARY | 2024-10-24 08:47 | XMS_ITS | Clinical Summary ---
Author Organization [facility] Address [address] [place] [address] Care Team Providers Care Fish Drier Name Role Phone Koko Kumar MD Primary Care Provider [phone] Social History Tobacco Use Types Packs/Day Years [...] Vaccine (2023-2 5 season) 2024 Influenza Vaccine (Season Ended) 2025 HIB Vaccines Aged Out No longer eligi [...] age to complete this topic Meningococcal B Vaccine Aged Out No l onger eligible based on patient's age to complete [...] age to complete this topic Care Teams Fish Drier Relationship Specialty Start Date End Date Koko Kumar MD [address] [facility] [place] [address] PCP - General Internal Medicine 11/18/20
== END 2024-10-24 09:16 | disposition home or self-care (01) ==
LOC: HO.RHE 08:31
PROVIDERS: PCP Internal Medicine; Visit Provider Student in an Organized Health Care Education/Training Program
DX: M35.89 Other specified systemic involvement of connective tissue (principal); Z51.81 Encounter for therapeutic drug level monitoring; Z79.899 Other long term (current) drug therapy
CPT/HCPCS: 99214

== ENCOUNTER → 2024-10-25 10:39 | Outpatient (REF) | payer OTHER, SELFPAY ==
--- NOTE | 2024-10-25 10:43 | ECG_ITS ---
Test Reason : ABN EKG Blood Pressure : */* mmHG Vent. Rate : 69 BPM Atrial Rate : 69 BPM P-R Int : 150 ms QRS Dur : 74 ms QT Int : 414 ms P-R-T Axes : 22 5 33 degrees QTcB Int : 443 ms Normal sinus rhythm Normal ECG No previous ECGs available Referred By: Niya Velazquez Electronically Signed By: ROMEO THOMSON MD
--- OUTSIDE RECORDS SUMMARY | 2024-10-25 12:56 | XMS_ITS | Patient Health Record ---
Author Organization [facility] Address [address] [facility] [place] [address] Care Team Providers Care Supervisor Fabrication Name Role Phone Reji Concepcion Primary Care Provider Cha Mckay Unavailable [phone] Jamie Donaldson Unavailable [phone] Allergies Allergen (clinical drug ingredient) Drug/Non Drug [...] Ordered Date Performed Result Body Sit e 35985-Dhszfcsn Plate 07/10/2024 N/A Encounters Encounter Location Date Provider Diagnosis [address] [address] 07/10/2024 Jamie Donalsdon Cellulitis of toe of left foot L03.032 and Ingrown left big toenail L60.[address] [address] 09/27/2024 Cha Gottlieb Ingrown nail L60.0 [facility] [address] [place] [address] 08/02/2024 Jamie Donaldson Assessments Encounter Date Diagnosis (ICD Code) Assessment Notes Treatment Notes Treatment Clinical Notes Section Notes 07/10/2024 Cellulitis of toe of left foot (ICD-10 - L03.032) Pt is to finish oral antibiotcs as prescribed by Urgent Care 07/10/2024 Ingrown left big toenail (ICD-10 - L60.0) 09/27/2024 Ingrown nail (ICD-10 - L60.0) Plan Of Treatment Pending Test Test Name Order Date 92181-Mrugtgof Plate 07/10/2024 Insurance Providers Payer Name Payer Address Payer Phone Subscriber Number Group Number Insured Name Patient Relationship to Insured Coverage Start Date Coverage End Date Blue Benefits [address] [id number] [place] [id number] Paris Saldana Self - patient is the insured Medical (General) History Medical History History ICD Code Anemia Anxiety asthma Depression Headaches Surgical History Surgery Date(Month/Year) hernia
--- OUTSIDE RECORDS SUMMARY | 2024-10-25 12:56 | XMS_ITS ---
Author Organization [facility] Address [address] [place] [address] Care Team Providers Care Mixing Machine Tender Cork Rod Name Role Phone Concepcion Mendoza Primary Care Provider Cha Mckay Unavailable [phone] Jamie Donaldson [phone] REASON FOR VISIT seen sooner Encounters Encounter Location Date Provider Diagnosis [address] [address] 07/17/2024 Jamie Donaldson Plan Of Treatment No Information Progress Notes * Feng SALDANA:[birth year] (29 yo F)Acc No.[id number]:07/17/2024 Progress Note Patient:?Carmelita SALDANAndr fadi Provider:?Jamie Donaldson D.P.M. :1995???Age:29 Y???Sex:Female D ate:07/17/2024 Address:[address] [place], [place] [id number] Pcp:Concepcion Mendoza Subjective: * Chief Complaints: * [...] Donaldson D.P.M. Date:?01/2025 Generated for Mo olivo/Twin/Deepak on:?10/25/2024 12:56 PM EDT
--- OUTSIDE RECORDS SUMMARY | 2024-10-25 12:57 | XMS_ITS ---
Author [facility] Address [address] [place] [address] Care Team Providers Care Wire Preparation Machine Tender Name Role Phone Concepcion Mendoza Primary Care Provider Cha Mckay Unavailable [phone] Allergies Allergen (clinical drug ingredient) Drug/Non Drug [...] 09/27/2024 Encounters Encounter Location Date Provider Diagnosis [address] [address] 09/27/2024 Cha Gottlieb Ingrown nail L60.0 Assessments [...] was recommended for pain or discomfort - 53461 Anesthesia 3cc of 1 percent Lid ocaine Plain local anesthesic utilizing aseptic technique Location Medial nail border, T5 Progress Notes * Mark SALDANAOB:[birth year] (29 yo F)Acc No.[id number]:09/27/2024 Progress Note Patient:?Shamar SALDANA Provider:?Cha Gottlieb DPM :1995???Age:29 Y???Sex:Female D ate:09/27/2024 Address:[address] [place], [place] [address] Pcp:Concepcion Mendoza Subjective: * Chief Complaints: * [...] was recommended for pain or discomfort - 13738.? * Procedure Codes:?29258 Avuls ion Plate, Modifiers: T5 * Follow Up:?prn * Images: * Sign off status: Completed true * Provider:?Cha Gottlieb DPM Date:? Generated for Mo olivo/Twin/Deepak on:?10/25/2024 12:56 PM EDT History and Physical Notes * Examination Category Sub-Category Detail Notes Category Not es Ingrown Nail INSPECTION: Reveals nail inc urvation, pain on palpation, groove hypertrophy, Medial nail border, T5, There is evidence of surrounding periungual tissue erythema
--- OUTSIDE RECORDS SUMMARY | 2024-10-25 12:57 | XMS_ITS ---
Author Organization [facility] Address [address] [place] [address] Care Team Providers Care Geographic Information System Analyst Name Role Phone Concepcion Mendoza Primary Care Provider Cha Mckay Unavailable [phone] Jamie Donaldson [phone] REASON FOR VISIT ? next step Encounters Encounter Location Date Provider Diagnosis [address] [address] 08/02/2024 Jamie Donaldson Plan Of Treatment No Information Progress Notes * Feng SALDANA:[birth year] (29 yo F)Acc No.[id number]:08/02/2024 Patient:?Shamar SALDANA :1995???Age:29 Y???Sex:Female Address:[address] [place] [address] * true * Date:? Generated for Luisi geovani/Twin/eTransmitting on:?10/25/2024 12:56 PM EDT
--- OUTSIDE RECORDS SUMMARY | 2024-10-25 12:57 | XMS_ITS | Clinical Summary ---
[facility] Organization [facility] Address [address] [place] [address] Care Team Providers Care [place] Supervisor Name Role Phone Koko Kumar MD Primary Care Provider [phone] Social History Tobacco Use Types Packs/Day Years [...] age to complete this topic Care Teams [place] Supervisor Relationship Specialty Start Date End Date Koko Kumar MD [address] [place] [address] PCP - General Internal Medicine 11/18/20
== END ==
LOC: HO.CARD 10:39
PROVIDERS: PCP Internal Medicine; Visit Provider Student in an Organized Health Care Education/Training Program
DX: R94.31 Abnormal electrocardiogram [ECG] [EKG] (principal)
CPT/HCPCS: 93005

== ENCOUNTER → 2024-10-25 10:43 | Outpatient (BNV) | payer OTHER, SELFPAY | PROVIDERS: PCP Internal Medicine; Visit Provider Internal Medicine Cardiovascular Disease | DX: R94.31 Abnormal electrocardiogram [ECG] [EKG] (principal) | CPT/HCPCS: 93010 ==

== ENCOUNTER 2024-11-26 12:28 | Outpatient (REF) | payer OTHER, SELFPAY ==
--- OUTSIDE RECORDS SUMMARY | 2024-11-26 12:50 | XMS_ITS ---
Author Organization [facility] Address [address] [place] [address] Care Team Providers Care Audit Mgr Name Role Phone Concepcion Mendoza Primary Care Provider Cha Mckay Unavailable [phone] Jamie Donaldson [phone] REASON FOR VISIT seen sooner Encounters Encounter Location Date Provider Diagnosis [address] [address] 07/17/2024 Jamie Donaldson Plan Of Treatment No Information Progress Notes * Feng SALDANA:[birth year] (29 yo F)Acc No.[id number]:07/17/2024 Progress Note Patient:?Carmelita SALDANAndr fadi Provider:?Jamie Donaldson D.P.M. :1995???Age:29 Y???Sex:Female D ate:07/17/2024 Address:[address] [place], [place] [phone] Pcp:Concepcion Mendoza Subjective: * Chief Complaints: * [...] Donaldson D.P.M. Date:?01/2025 Generated for Mo olivo/Twin/Alvaroitting on:?11/26/2024 12:49 PM EDT
--- OUTSIDE RECORDS SUMMARY | 2024-11-26 12:50 | XMS_ITS | Data Portability ---
Author Organization [facility] Pan s, [address] Address [address] [place] [address] Assessment No assessment recorded. Plan of Treatment Reminders Order Date Submit Date Provider Last Modified By Organization Details Last Modified Time Details Appointments None recorded. Lab None recorded. Referral None recorded. Procedures None recorded. Surgeries None recorded. Imaging None recorded. Medication Orders benzonatate 200 mg capsule 2021 022 [id number], [address], [place], [phone], 08:38:53 Patient TargetsNo targets recorded. Patient Instructions Encounter Date Encounter Id Patient Instructions Last Modified By Organization Details Last Modified Time 06/15/2022 [id number] cough: care instructions [email or web address] Not available 06/15/2022 08:38:42 influenza (flu): care instructions [email or web address] Not available 06/15/2022 08:38:42 Based on your [...] Shortness of breath 3. Coughing up Blood. [email or web address] Not available 06/15/2022 08:31:49 Reason for Referral None Reported. Problems Name Problem SNOMED Code Status Onset Date Resolution Date Notes Provider Name and Address Organization Details Recorded Time Asthma 862323355 Active SHAHZAD franklin [place] - [facility] 08:24:13 Depressive disorder 84761474 Active SHAHZAD franklin [facility] 08:24:39 Anxiety 50709410 Active SHAHZAD franklin [facility] 08:24:45 Problem [...] Name and Address Organization Details Recorded Time 30966 Product containin g penicilli n (product) medicatio n hives Not available Not available 06/15/2022 74425 8001 SNOMED [place] - [facility] [...] Address Organization Details Last Updated DateTime 2 15502.3 3 g 33.1 kg/m2 162.56 cm 18 /min 98 % 98 % 109 /min 98.9 [degF] 112 mm[Hg] 81 mm[Hg] SHAHZAD FLORES [facility] 08:26:51 Social History Question Answer Notes LastModified by XZERES Details LastModified Time Tobacco Smoking Status Never Smoker SHAHZAD franklin [facility] 06/15/2022 08:25:12 Have You Recently Traveled Abroad? Yes [employer] From 06/06-06/12 [email or web address] Information not available 06/15/2022 Sex: Unknown Functional Status Question Answer Note LastModified by XZERES Details LastModified Time Do you use any illicit or recreational drugs? No [email or web address] Information not available 06/15/2022 Do you or have you ever used any other forms of tobacco or nicotine? No [email or web address] Information not available 06/15/2022 What is your level of alcohol consumption? Occasional [email or web address] Information not available 06/15/2022 Mental Status None recorded. Family History Relationship Description Onset Age of this Age Resolved Age Notes LastModified by Organization Details LastModified Time Father No current problems or disability [email or web address] Not available 06/15 08:24:50 Mother No current problems or disability [email or web address] Not available 06/15 08:24:50 Medical History No medical history recorded. Gynecological HistoryNo gynecological history recorded. Obstetrics History GPAL:G 0 P 0 0 0 0 Past Encounters Encounter ID Performer Location Encounter Start Date Encounter Closed Date Diagnosis/Indication Diagnosis SNOMED-CT Code Diagnosis ICD10 Code Diagnosis Note [id number] [address] [place] [address] 04/12/2020 16:07:47 04/12/2020 19:45:33 [id number] [place] [address] 08/01/2020 09:30:38 08/01/2020 11:05:06 [id number] [place] [address] 03/15/2020 16:41:41 03/15/2020 17:38:33 [id number] [place]OW [address] [place] [address] 06/15/2022 08:05:32 06/15/2022 08:43:51 Influenza caused by Influenza A virus 623142740 J09.X2 Health Concerns Section Related Observation LastModified by Organization Detai ls LastModified Time None Recorded Concern Status LastModified by Organization Details LastModified Time None Recorded Advance Directives Directive None Recorded Payers Insurance Date Sequence Insurance Name Policy Number Policy Horne Covered Member ID Horne Member ID Guarantor Name 06/15/2022 1 [facility] (MEDICAID REPLACEMENT - HMO) [id number] Paris Saldana [id number] Paris Saldana 06/15/2022 1 [place] Paris Saldana [id number] Paris Saldana Notes Date Note Type Note [...] inhalor. [place] WINSLOW [address] [place], [address], [place] - [facility] 06/15/2022 08:42:02 OBGyn Episode No OBEpisode recorded.
--- OUTSIDE RECORDS SUMMARY | 2024-11-26 12:50 | XMS_ITS | Clinical Summary ---
Author Organization [facility] Address [address] [place] [address] Care Team Providers Care Veneer Sander Name Role Phone Koko Kumar MD Primary Care Provider [phone] Social History Tobacco Use Types Packs/Day Years [...] age to complete this topic Care Teams Veneer Sander Relationship Specialty Start Date End Date Koko Kumar MD [address] [facility] [address] PCP - General Internal Medicine 11/18/20
--- OUTSIDE RECORDS SUMMARY | 2024-11-26 12:50 | XMS_ITS ---
Author Organization [facility] Address [address] [place] [address] Care Team Providers Care Institutional Research Director Name Role Phone Concepcion Mendoza Primary Care Provider Cha Mckay Unavailable [phone] Allergies Allergen (clinical drug ingredient) Drug/Non Drug [...] 09/27/2024 Encounters Encounter Location Date Provider Diagnosis [address] [address] 09/27/2024 Cha Gottlieb Ingrown nail L60.0 Assessments [...] was recommended for pain or discomfort - 00172 Anesthesia 3cc of 1 percent Lid ocaine Plain local anesthesic utilizing aseptic technique Location Medial nail border, T5 Progress Notes * Mark SALDANAOB:[birth year] (29 yo F)Acc No.[id number]:09/27/2024 Progress Note Patient:?Shamar SALDANA Provider:?Cha Gottlieb DPM :1995???Age:29 Y???Sex:Female D ate:09/27/2024 Address:[address] [place], [place] [id number] Pcp:Concepcion Mendoza Subjective: * Chief Complaints: * [...] was recommended for pain or discomfort - 63598.? * Procedure Codes:?25271 Avuls ion Plate, Modifiers: T5 * Follow Up:?prn * Images: * Sign off status: Completed true * Provider:?Cha Gottlieb DPM Date:? Generated for Mo olivo/Twin/Deepak on:?11/26/2024 12:50 PM EDT History and Physical Notes * Examination Category Sub-Category Detail Notes Category Not es Ingrown Nail INSPECTION: Reveals nail inc urvation, pain on palpation, groove hypertrophy, Medial nail border, T5, There is evidence of surrounding periungual tissue erythema
--- OUTSIDE RECORDS SUMMARY | 2024-11-26 12:50 | XMS_ITS | Patient Health Record ---
Author Organization [facility] Address [address] [facility] [place] [address] Care Team Providers Care Post Form Remover Name Role Phone Reji Concepcion Primary Care Provider Cha Mckay Unavailable [phone] Jamie Donaldson Unavailable [phone] Allergies Allergen (clinical drug ingredient) Drug/Non Drug [...] Ordered Date Performed Result Body Sit e 24980-Hwsubnef Plate 07/10/2024 N/A Encounters Encounter Location Date Provider Diagnosis [facility] [address] [place] [address] 08[facility]02/2024 [facility] [address] 07/10/2024 Jamie Donaldson Cellulitis of toe of left foot L03.032 and Ingrown left big toenail L60.0 [facility] [address] 09/27/2024 Cha Gottlieb Ingrown nail L60.0 Assessments [...] Treatment Pending Test Test Name Order Date 87384-Foumdlug Plate 07/10/2024 Insurance Providers Payer Name Payer Address Payer Phone Subscriber Number Group Number Insured Name Patient Relationship to Insured Coverage Start Date Coverage End Date Blue Benefits [address] [id number] [place] [id number] Paris Saldana Self - patient is the insured Medical (General) History Medical History History ICD Code Anemia Anxiety asthma Depression Headaches Surgical History Surgery Date(Month/Year) hernia
--- OUTSIDE RECORDS SUMMARY | 2024-11-26 12:50 | XMS_ITS ---
Author Organization [facility] Address [address] [place] [address] Care Team Providers Care Vp Human Resources Name Role Phone Concepcion Mendoza Primary Care Provider Cha Mckay Unavailable [phone] Jamie Donaldson [phone] REASON FOR VISIT ? next step Encounters Encounter Location Date Provider Diagnosis [address] [address] 08/02/2024 Jamie Donaldson Plan Of Treatment No Information Progress Notes * Feng SALDANA:[birth year] (29 yo F)Acc No.[id number]:08/02/2024 Patient:?Shamar SALDANA :1995???Age:29 Y???Sex:Female Address:[address] [place] [address] * true * Date:? Generated for Luisi geovani/Twin/eTransmitting on:?11/26/2024 12:50 PM EDT
== END 2024-11-26 12:29 | disposition home or self-care (01) ==
LOC: HO.LAB 12:28
PROVIDERS: PCP Internal Medicine; Visit Provider Internal Medicine Gastroenterology
DX: Z13.88 Encounter for screening for disorder due to exposure to contaminants (principal)
CPT/HCPCS: 36415; 82542

== ENCOUNTER 2025-02-18 23:18 | Emergency (ER) | payer OTHER, SELFPAY ==
[2025-02-18 23:22] VITALS: BP 118/76; PULSE 89; RESP 18; TEMP 36.8; O2SAT 98; BMI 30.4
[2025-02-18 23:56] LABS: Hematocrit 40.0 % (37.0-47.0); Hemoglobin 13.5 g/dl (12.0-16.0); Imm Gran Abs Auto 0.03 X10*3/uL (0.00-0.03); Imm Gran Pct Auto 0.3 % (0.0-0.4); Lymphocytes Absolute Auto 4.1 X10*3/uL (1.2-4.9); MANUAL DIFF FLAG NO; Mean Corpuscular HGB Conc 33.8 g/dl (31.0-35.0); Mean Corpuscular Hemoglobin 29.0 pg (27.0-33.0); Mean Corpuscular Volume 86.0 fL (80.0-98.0); NRBC Abs Auto 0.000 X10*3/uL (0.0-0.012); NRBC Pct Auto 0.0 /100WBC (0.0-0.2); Platelet Count 335 X10*3/uL (160-400); Red Blood Count 4.65 X10*6/uL (4.20-5.50); White Blood Count 10.1 X10*3/uL (4.8-10.8)
[2025-02-19 00:13] LABS: Alanine Aminotransferase 34 U/L (0-31); Albumin Level 4.4 g/dL (3.5-5.0); Alkaline Phosphatase 98 U/L (39-117); Anion Gap 13 (12-20); Aspartate Amino Transferase 27 U/L (5-31); Blood Urea Nitrogen 12 mg/dL (9-16); Calcium 9.1 mg/dL (8.4-10.2); Carbon Dioxide 26 mmol/L (22-29); Chloride 108 mmol/L (96-108); Creatinine Clr Calc Pharmacy 96.9; Estimated Glomerular Filt Rate > 60; Potassium 3.9 mmol/L (3.3-5.1); Sodium 143 mmol/L (135-145); Total Protein 7.5 g/dL (6.5-8.0)
[2025-02-19 00:18] LABS: Appearance Urine Cloudy; Glucose Urine UA Negative (Negative); PH 6.0 (5.0-9.0); Specific Gravity - Urine 1.025 (1.005-1.025); UMIC TRIGGER UACC YES
[2025-02-19 00:19] LABS: UPreg QC Valid YES
[2025-02-19 00:23] LABS: UACC Culture Trigger YES
--- NOTE | 2025-02-19 01:58 | ED.FEMALEGU ---
HPI - Female Genitourinary General Chief complaint: Urogenital-Female Stated complaint: Possible Kidney Stones Time Seen by Provider: 02/19/25 01:12 Source: patient Mode of arrival: ambulatory Limitations: no limitations History of Present Illness ED Provider: HPI Narrative: Patient has significant past medical history been having dysuria frequency for last few days got worse for last 24 hours no fever no chills also complaining of low back pain no vaginal discharge was the patient complaining of chills but no fever no nausea no vomiting Related Data Home Medications ?Medication ?Instructions ?Recorded ?Confirmed cromolyn 100 mg/5 mL oral 200 mg PO QID 05/14/24 10/24/24 concentrate Previous Rx's ?Medication ?Instructions ?Recorded cholecalciferol (vitamin D3) 50 50 mcg PO DAILY #90 caps 12/07/23 mcg (2,000 unit) capsule vitamin A palmitate 3,000 mcg 3,000 mcg PO DAILY #90 tabs 12/07/23 (10,000 unit) tablet zinc sulfate 50 mg zinc (220 mg) 50 mg PO DAILY #90 caps 12/07/23 capsule ondansetron 4 mg disintegrating 4 mg PO Q8H PRN for 09/17/24 tablet nausea/vomiting #30 tabs linaclotide 72 mcg capsule 72 mcg PO DAILY PRN constipation 10/16/24 #30 caps ivabradine 5 mg tablet 5 mg PO BID #180 tabs 10/18/24 hydroxychloroquine 200 mg tablet 400 mg (2 x 200 mg) PO DAILY 90 10/24/24 (Plaquenil) days #180 tabs cefuroxime axetil 500 mg tablet 500 mg PO BID 7 days #14 tabs 02/19/25 phenazopyridine 200 mg tablet 200 mg PO TID 2 days #6 tabs 02/19/25 (Pyridium) Allergies Allergy/AdvReac Type Severity Reaction Status Date / Time penicillin V Allergy Mild Rash Verified 02/18/25 23:25 Review of Systems Review of Systems: Yes all other systems are reviewed and are negative PMFSH Past Medical History Medical History Migraine Depression Asthma Surgical History History of laparoscopic appendectomy (02/21/24) History of esophagogastroduodenoscopy (EGD) H/O colonoscopy Hx of hernia repair Family History Family History Father Lupus (systemic lupus erythematosus) Social History Social History Household Members: Family Housing: House Do you presently have visiting nurse or other home services: No Alcohol intake: current Alcohol intake frequency: holidays/special occasions only Patient Tobacco Use Status: Never used Tobacco Smoked in Last 30 Days: No e-Cigarette/Vaping Use: Never Used Second Hand Smoke Exposure: No Use of substances other than those prescribed or required for medical reasons: No Advance Directives: No Advance Directives Information Provided: Yes Physical Exam Vital Signs: Vital Signs: Last Vital Signs Temp 96.5 F L 02/19/25 02:15 Pulse 79 02/19/25 02:15 Resp 16 02/19/25 02:15 BP 104/73 02/19/25 02:15 Pulse Ox 99 02/19/25 02:15 O2 Del Method Room Air 02/19/25 02:15 BMI result Body Mass Index 30.4 Appearance: Alert. Oriented X3. No acute distress. Eyes: no pallor or icterus ENT: Pharynx normal Oral Mucosa moist tympanic membrane intact no erythema, Neck: Normal inspection. Neck supple. CVS: Normal heart rate and rhythm. Pulses normal. Respiratory: No respiratory distress. Equal air entry bilateral, no wheezing/rales/rhonchi Abd: soft, not tender no CVA tenderness Skin: Skin warm and dry. Normal skin color. Normal skin turgor. Extremities: No lower extremity edema, no calf tenderness Neuro: Oriented X 3. Medications Administered Discontinued Medications Generic Name Dose Route Start Last Admin Trade Name Freq PRN Reason Stop Dose Admin Cefuroxime Axetil 500 mg 02/19/25 02:02 02/19/25 02:09 Cefuroxime Axetil 500 Mg Tablet PO 02/19/25 02:03 500 mg ONCE ONE Administration Phenazopyridine HCl 200 mg 02/19/25 02:02 02/19/25 02:09 Phenazopyridine Hcl 200 Mg Tablet PO 02/19/25 02:03 200 mg ONCE ONE Administration Medical Decision Making Lab Data MDM Lab Attestation statement: I reviewed the patient's lab results. 02/18/25 23:50 02/18/25 23:50 Labs: Lab Results 02/18/25 02/19/25 Range/Units 23:50 00:00 WBC 10.1 (4.8-10.8) X10*3/uL RBC 4.65 (4.20-5.50) X10*6/uL Hgb 13.5 (12.0-16.0) g/dl Hct 40.0 (37.0-47.0) % MCV 86.0 (80.0-98.0) fL MCH 29.0 (27.0-33.0) pg MCHC 33.8 (31.0-35.0) g/dl RDW 13.1 (11.0-16.0) % Plt Count 335 D (160-400) X10*3/uL MPV 9.8 (9.4-12.3) fL Immature Gran % (Auto) 0.3 (0.0-0.4) % Neut % (Auto) 49.9 (45-73) % Lymph % (Auto) 40.3 H (20-40) % Mobile % (Auto) 7.4 (2-11) % Eos % (Auto) 1.6 (0-4) % Baso % (Auto) 0.5 (0-2) % Lymph # (Auto) 4.1 (1.2-4.9) X10*3/uL Mobile # (Auto) 0.8 (0.1-1.2) X10*3/uL Eos # (Auto) 0.2 (0.0-0.4) X10*3/uL Baso # (Auto) 0.1 (0.0-0.2) X10*3/uL Abs Immat Gran (auto) 0.03 (0.00-0.03) X10*3/uL Absolute Neuts (auto) 5.1 (2.0-8.3) x10*3/uL Absolute Nucleated RBC 0.000 (0.0-0.012) X10*3/uL Nucleated RBC % (auto) 0.0 (0.0-0.2) /100WBC Sodium 143 (135-145) mmol/L Potassium 3.9 (3.3-5.1) mmol/L Chloride 108 (96-108) mmol/L Carbon Dioxide 26 (22-29) mmol/L Anion Gap 13 (12-20) BUN 12 (9-16) mg/dL Creatinine 0.87 (0.5-1.4) mg/dL Estim Creat Clear Calc 96.9 Estimated GFR > 60 Random Glucose 102 (60-115) mg/dL Calcium 9.1 (8.4-10.2) mg/dL Total Bilirubin 0.6 (0.0-1.0) mg/dL AST 27 (5-31) U/L ALT 34 H (0-31) U/L Alkaline Phosphatase 98 (39-117) U/L Total Protein 7.5 (6.5-8.0) g/dL Albumin 4.4 (3.5-5.0) g/dL Urine Color Yellow Urine Appearance Cloudy Urine pH 6.0 (5.0-9.0) Ur Specific [place] 1.025 (1.005-1.025) Urine Protein Trace (Neg-Trace) mg/dL Urine Glucose (UA) Negative (Negative) mg/dL Urine Ketones Trace (Negative) mg/dL Urine Blood Negative (Negative) Urine Nitrite Negative (Negative) Ur Leukocyte Esterase Small (1+) H (Negative) Urine RBC 0-2 (0-2) /HPF Urine WBC 21-50 H (0-5) /HPF Ur Squamous Epith Cells >20 (0-2) /HPF Urine Bacteria 4+ (None Seen) Hyaline Casts 0-2 (0-2) /LPF Urine Test NEGATIVE (NEGATIVE) Discharge Plan Discharge Clinical Impression: Acute cystitis Patient Disposition: Home, Self-Care Instructions: Urinary Tract Infection in Women (DC) Additional Instructions: Drink plenty of fluids Take antibiotics as prescribed Follow the PCP if not better Prescriptions: New cefuroxime axetil 500 mg tablet 500 mg PO BID 7 Days Qty: 14 0RF phenazopyridine [Pyridium] 200 mg tablet 200 mg PO TID 2 Days Qty: 6 0RF No Action zinc sulfate 50 mg zinc (220 mg) capsule 50 mg PO DAILY Qty: 90 2RF cholecalciferol (vitamin D3) 50 mcg (2,000 unit) capsule 50 mcg PO DAILY Qty: 90 3RF vitamin A palmitate 3,000 mcg (10,000 unit) tablet 3,000 mcg PO DAILY Qty: 90 3RF ondansetron 4 mg tablet,disintegrating 4 mg PO Q8H PRN (Reason: for nausea/vomiting) Qty: 30 2RF linaclotide 72 mcg capsule 72 mcg PO DAILY PRN (Reason: constipation) Qty: 30 3RF ivabradine 5 mg tablet 5 mg PO BID Qty: 180 3RF Rx Instructions: must administer with a meal/food cromolyn 100 mg/5 mL concentrate 200 mg PO QID hydroxychloroquine [Plaquenil] 200 mg tablet 400 mg PO DAILY 90 Days Qty: 180 1RF Stand Alone Forms: Work/School Release Interventions: ED Discharge Assessment Last Done: 02/19/25 02:15 Discharge Date/Time: 02/19/25 02:18 Print Language: Kiswahili
[2025-02-19 02:10] VITALS: BP 104/73; PULSE 79; RESP 16; TEMP 35.8; O2SAT 99
[2025-02-19 02:15] VITALS: BP 104/73; PULSE 79; RESP 16; TEMP 35.8; O2SAT 99
== END 2025-02-19 02:18 | disposition home or self-care (01) ==
PROVIDERS: Emergency Provider Internal Medicine; PCP Internal Medicine
DX: N30.00 Acute cystitis without hematuria (principal); R30.0 Dysuria; Z79.899 Other long term (current) drug therapy
CPT/HCPCS: 36415; 80053; 81001; 81025; 85025; 87086; 99283; 99284

== ENCOUNTER 2025-02-22 08:04 | Outpatient (AMB) | payer OTHER, SELFPAY ==
--- OUTSIDE RECORDS SUMMARY | 2024-07-17 04:15 | XMS_ITS ---
Author Organization [facility] Address [address] [place] [address] Care Team Providers Care Business Continuity Planner Name Role Phone Concepcion Mendoza Primary Care Provider UnavailCha Yarbrough Unavailable [phone] Jamie Donaldson [phone] REASON FOR VISIT seen sooner Encounters Encounter Location Date Provider Diagnosis [address] [address] 07/17/2024 Jamie Donaldson Plan Of Treatment No Information Progress Notes * Feng SALDANA:[birth year] (30 yo F)Acc No.[id number]:07/17/2024 Progress Note Patient: Paris LUA Provider: Monroe Donaldson D.P.M. :1995 A ge:29 Y S ex:Female Date:07/17/2024 Address:[address] [place], [place] [id number] Pcp:Concepcion Mendoza Subjective: * Chief Complaints: * 1 . Seen sooner. * Medical History: Objective: * Vitals: Assessment: Plan: * Treatment: * Images: * The named appointment provid er may or may not be the originator of this progress note, and it is not deemed complete until electronically signed by the appointment provider. Sign off status: Pending * Provider: Monroe Donaldson D.P.M. Date: 0 07/17/2024 Generated for Mo olivo/Faxing/eTransmitting on: 0 02/22/2025 08:09 AM EDT
--- OUTSIDE RECORDS SUMMARY | 2025-02-22 08:10 | XMS_ITS | Clinical Summary ---
Author Organization [facility] Address [address] [place] [address] Care Team Providers Care Computer Technology Instructor Name Role Phone Koko Kumar MD Primary Care Provider [phone] Social History Tobacco Use Types Packs/Day Years [...] 01/25/2016 COVID-19 Vaccine (2023-2 5 season) 2024 Depression Screening 07/11/2024 Influenza Vaccine (#1) 2025 HIB Vaccines Aged Out No longer [...] 5 Years) and At-Risk Patients (6 to 49 Years) Aged Out No longer eligible b ased on patient's age to complete this topic RSV Immunization Patients Un denny 20 months Aged Out No longer eligible b ased on patient's age to complete this topic Varicella Vaccines Aged Out No longer eligible based on patient's age to complete this topic Care Teams Computer Technology Instructor Relationship Specialty Start Date End Date Koko Kumar MD [address] [place] [address] PCP - General Internal Medicine 11/18/20
--- OUTSIDE RECORDS SUMMARY | 2025-02-22 08:10 | XMS_ITS | Encounter Summary ---
Author Organization [facility] Address [address] [place] [address] Phone Care Team Providers Care Occupational Therapist'S Assistant Name Role Phone Concepcion Mendoza MD Primary Care Provider [phone] Encounter Details Date Type Department Care Team (Late Contact Info) Description 09/16/[address] [address] Elza Beaulieu MD [address] [place] [id number] [email or web address] Social History Tobacco Use Types Packs/Day Years Used Date Smoking Tobacco: Never Smokeless Tobacco: Never Alcohol Use Standard Drinks/Week Comments Not Currently 0 (1 standard drink = 0.6 oz pur e alcohol) Comments Unknown Sex and Gender Information Value Date Recorded Sex Assigned at Not on file Legal Sex Female 12:42 PM EDT Gender Identity Not on file Sexual Orientation Not on file documented as of this encounter Plan of Treatment Upcoming Encounters Date Type Department Care Team (Late Contact Info) Description 07/22/2025 10:40 AM EST Office Visit [address] [address] Elza Beaulieu MD [address] [place] [id number] [email or web address] 11/05/2025 10:45 AM EDT Office Visit [facility] [place] [address] [place] [address] Lety Al, OD [address] [place] [address] [email or web address] documented as of this encounter Visit Diagnoses Not on filedocumented in this encounter Care Teams Occupational Therapist'S Assistant Relationship Specialty Start Date End Date Concepcion Mendoza MD [address] [place] [address] PCP - General Internal Medicine 12/03/21 documented as of this encounter Additional Source Comments The information contained in this document represents components of the legal health record. It is not the complete legal health record.[facility]
--- OUTSIDE RECORDS SUMMARY | 2025-02-22 08:10 | XMS_ITS ---
[facility] Name [facility] Unknown Care Team Organization Name Specialty Phone Email Start Date End Da te [facility] ([facility]
[2025-02-22 08:51] VITALS: BP 108/70; PULSE 80; BMI 30.4
--- NOTE | 2025-02-22 08:51 | A.OFFVIS_ITS ---
Vital Signs 3 02/22/25 08:51 Height 5 ft 4 in Weight 177 lb BMI 30.4 BP 108/70 Blood Pressure Location Lt brachial Position Sitting Pulse 80 Intake Visit Reasons: check umbilical trocar site Intake Note: Patient is seen in office for umbilical wound check, post appendectomy 02/21/24. Pt c/o: drainage, redness, odor Counseling Services Director Required: No Allergies penicillin V Allergy (Mild, Verified 02/22/25 08:52) Rash Medication List - Last Reconciled 02/22/25 by Dewayne Mcgarry RN cefuroxime axetil 500 mg PO BID 7 days cholecalciferol (vitamin D3) 50 mcg PO DAILY cromolyn 200 mg PO QID ivabradine 5 mg PO BID linaclotide 72 mcg PO DAILY PRN ondansetron 4 mg PO Q8H PRN vitamin A palmitate 3,000 mcg PO DAILY zinc sulfate 50 mg PO DAILY HPI Comments Details: Felice returns to the office for evaluation of an umbilical skin change. She reports several days of redness and swelling with discharge from the incision site. She is approximately 1 year following laparoscopic appendectomy for acute appendicitis. She is currently on antibiotics for cystitis which she started earlier this week. [facility] Medical History Migraine Depression Asthma Surgical History History of laparoscopic appendectomy (02/21/24) History of esophagogastroduodenoscopy (EGD) H/O colonoscopy Hx of hernia repair Family History Father Lupus (systemic lupus erythematosus) Social History Household Members: Family Housing: House Do you presently have visiting nurse or other home services: No Alcohol intake: current Alcohol intake frequency: holidays/special occasions only Patient Tobacco Use Status: Never used Tobacco e-Cigarette/Vaping Use: Never Used Second Hand Smoke Exposure: No Review of Systems Const All systems reviewed & are unremarkable except as noted in HPI and below Physical Exam Vital Signs: Last Vital Signs Pulse 80 02/22/25 08:51 BP 108/70 02/22/25 08:51 BMI result Body Mass Index 30.4 Resp Effort & Inspection: normal respiratory effort GI Other: Area of redness within the lower portion of the umbilicus starting at the incision. Skin seems thickened but not fluctuant. No discharge could be expressed. Abdomen image: 2 1. Area of thickening within the umbilicus lower surface Skin Other: Warm and dry Assessment & Plan Assessment & Plan (1) S/P laparoscopic appendectomy: Code(s): Z90.49 - Acquired absence of other specified parts of digestive tract Category: Surgical Plan Felice returns with area of redness in the umbilicus and a recent history of cystitis which she is on antibiotics currently. Skin appears red but non fluctuant. I suggested we continue the current antibiotics until complete and if wounds are still red/painful we can start a new antibiotic. She will check in when the current antibiotics are complete. Coding Level of Care Code Est Pt Level 3 (11712) Diagnoses S/P laparoscopic appendectomy Z90.49
== END 2025-02-22 09:06 | disposition home or self-care (01) ==
LOC: HO.HGS 08:05
PROVIDERS: PCP Internal Medicine; Visit Provider Surgery
DX: Z90.49 Acquired absence of other specified parts of digestive tract (principal)
CPT/HCPCS: 99213